=== PATIENT | female | born 1965 | race Caucasian/White ===

== ENCOUNTER 2017-12-04 01:05 | Emergency (ER) | payer OTHER ==
[~2017-12-04] VITALS: Ht 170.2 cm; Wt 113.2 kg
[~2017-12-04 01:05] MED LIST: ACET-1175 PO; ALBUAER2 INH; ASPI-320 PO; ATOR10TA82 PO; FLUT0.0529; GLC/500 PO; LPR25 PO; LSN25 PO; MULT-506 PO; NRN100 PO; NTRSLP4 SL; OMEP20CA59 PO; PLV75 PO; WARF-281 PO
[2017-12-04 01:10] VITALS: TEMP 36.4; Ht 170.2 cm; Wt 113.2 kg
[2017-12-04] MEDS ORDERED: DILTIAZEM HCL 5 MG/ML 5 ML VIAL ONE (01:22)
[2017-12-04] MEDS ORDERED: NURSING VERBAL MED ORDER ONE ×2 (01:24→01:30)
[2017-12-04 01:35] LABS: HEMATOCRIT 43.2 % (37-47); HEMOGLOBIN 14.8 g/dL (12.0-16.0); MEAN CELL VOLUME 83.9 fL (80-100); MEAN CORPUSCULAR HEMOGLOBIN 28.7 pg (25-34); MEAN CORPUSCULAR HGB CONC 34.3 g/dl (32-36); MEAN PLATELET VOLUME 10.3 fL (7.4-10.4); PLATELET COUNT 230 K/uL (130-400); RED CELL DISTRIBUTION WIDTH CV 13.1 % (11.5-14.5); RED CELL DISTRIBUTION WIDTH SD 39.5 fL (36.4-46.3); WHITE BLOOD COUNT 9.55 K/uL (4.8-10.8)
[2017-12-04 01:55] LABS: ALBUMIN 3.6 gm/dl (3.4-5.0); ALKALINE PHOSPHATASE 96 U/L (45-117); ALT/SGPT 48 U/L (12-78); AST/SGOT 22 U/L (15-37); BLOOD UREA NITROGEN 15 mg/dl (7-18); CALCIUM 8.1 mg/dl (8.5-10.1); CARBON DIOXIDE 27 mmol/L (21-32); CREATININE 0.82 mg/dl (0.60-1.20); GLUCOSE 276 mg/dl (70-99); POTASSIUM 3.5 mmol/L (3.5-5.1); SODIUM 138 mmol/L (136-145); TOTAL PROTEIN 6.8 gm/dl (6.4-8.2)
--- NOTE | 2017-12-04 02:20 | EMERGENCY ROOM VISIT NOTE ---
History Report prepared by Neno: Angella Andersen Under the Supervision of: Dr. Josi Harrell D.O. First contact with patient: 01:17 Chief Complaint: RAPID HEART RATE Stated Complaint: RAPID HEART RATE WILL NOT SLOW W/MEDS-HAS STINT History of Present Illness The patient is a 52 year old female who presents to the Emergency Room with complaints of a persistent episode of a rapid heart rate that started an hour ago. The patient rates her discomfort a 4/10 in severity. She states she was laying in bed when her symptoms started. The patient reports she has tried coughing and breathing exercises to slow her heart rate down with no relief. She also complains of headache, chest pressure, and tingling in her arms. She states she had a similar episode 2 months ago which resolved on its own. She denies any recent change in medications. She reports she has had a heart catheterization in the past. She has a stent in place. Source of History: patient Onset: an hour ago Position: other (heart) Symptom Intensity: 4/10 Quality: other (rapid heart rate) Timing: other (persistent) Associated Symptoms: + headache, + chest pain Note: Additional symptoms: arm tingling. Review of Systems See HPI for pertinent positives & negatives. A total of 10 systems reviewed and were otherwise negative. Past Medical & Surgical Medical Problems: (1) Diabetes Surgical Problems: (1) History of hysterectomy (2) S/P cholecystectomy Family History DVT Heart disease Social History Smoking Status: Former Smoker Marital Status: Occupation Status: employed Current/Historical Medications Scheduled Aspirin (Aspirin EC Low Dose), 81 MG PO QAM Atorvastatin (Lipitor), 20 MG PO DAILY Clopidogrel Bisulfate (Clopidogrel), 75 MG PO QAM Fluticasone Propionate (Nasal) (Flonase), 2 SPRAYS NA DAILY Gabapentin (Gabapentin), 200 MG PO TID Lisinopril (Lisinopril), 2.5 MG PO QAM Metformin Hcl (Glucophage), 500 MG PO BID Metoprolol Tartrate (Lopressor), 12.5 MG PO BID Multivitamin (Multivitamin), 1 TAB PO DAILY Nitroglycerin (Nitrostat), 0.4 MG UT PRN Omeprazole (Prilosec), 20 MG PO DAILY Warfarin Sodium (Warfarin Sodium), 20 MG PO DAILY Scheduled PRN Acetaminophen (Tylenol), 650 MG PO TID PRN for Pain or Fever Albuterol (Ventolin), 2 PUFFS INH QID PRN for SOB/Wheezing Nitroglycerin (Nitrostat), 0.4 MG SL UD PRN for Chest Pain Allergies Coded Allergies: Sulfa Drugs (Verified Allergy, Severe, ANAPHYLAXIS, 12/13/14) Adhesives (Verified Allergy, Unknown, RASH, 12/13/14) Physical Exam Vital Signs Date Time Temp Pulse Resp B/P (MAP) Pulse Ox O2 Delivery O2 Flow Rate FiO2 12/04/17 02:40 72 16 117/82 96 Room Air 12/04/17 01:57 71 18 106/69 98 Room Air 12/04/17 01:30 114 12/04/17 01:25 98 Room Air 12/04/17 01:19 152 12/04/17 01:10 36.4 168 19 141/92 95 Room Air Physical Exam HEENT: Head - normocephalic and atraumatic Pupils are equal, round, and reactive to light. Extraocular eye muscles are intact, and sclera are anicteric. Nose - moist nasal mucosa without discharge. Mouth - moist buccal mucosa. Oropharynx is nonerythematous and there is no tonsillar exudate or edema noted. Neck: Supple; no JVD, nuchal rigidity, cervical lymphadenopathy, or auscultated. Heart: Tachycardic. There is a normal S1 and S2 with no murmurs, clicks, or gallops appreciated. Lungs: Clear to auscultation bilaterally with no wheezes, rales, or rhonchi. Abdomen: Soft, completely nontender, nondistended, with good bowel sounds. There are no palpable pulsatile masses or hepatosplenomegaly. There is no guarding, rigidity, or rebound noted. Extremities: No evidence of cyanosis, clubbing, or edema. There are easily palpable peripheral pulses. Skin: warm and dry with good turgor and no rashes. Medical Decision & Procedures ER Provider Diagnostic Interpretation: Radiology results stated below per my interpretation: 1 VIEW CHEST X-RAY: Cardiomegaly, no evidence of congestive heart failure, no pulmonary infiltrates. Laboratory Results 12/04/17 01:18 Red Blood Count 5.15, Mean Corpuscular Volume 83.9, Mean Corpuscular Hemoglobin 28.7, Mean Corpuscular Hemoglobin Concent 34.3, Mean Platelet Volume 10.3, Neutrophils (%) (Auto) 40.4, Lymphocytes (%) (Auto) 51.0, Monocytes (%) (Auto) 4.5, Eosinophils (%) (Auto) 3.4, Basophils (%) (Auto) 0.3, Neutrophils # (Auto) 3.86, Lymphocytes # (Auto) 4.87, Monocytes # (Auto) 0.43, Eosinophils # (Auto) 0.32, Basophils # (Auto) 0.03 12/04/17 01:18 Test 12/04/17 01:18 White Blood Count 9.55 K/uL (4.8-10.8) Red Blood Count 5.15 M/uL (4.2-5.4) Hemoglobin 14.8 g/dL (12.0-16.0) Hematocrit 43.2 % (37-47) Mean Corpuscular Volume 83.9 fL (80-100) Mean Corpuscular Hemoglobin 28.7 pg (25-34) Mean Corpuscular Hemoglobin Concent 34.3 g/dl (32-36) Platelet Count 230 K/uL (130-400) Mean Platelet Volume 10.3 fL (7.4-10.4) Neutrophils (%) (Auto) 40.4 % Lymphocytes (%) (Auto) 51.0 % Monocytes (%) (Auto) 4.5 % Eosinophils (%) (Auto) 3.4 % Basophils (%) (Auto) 0.3 % Neutrophils # (Auto) 3.86 K/uL (1.4-6.5) Lymphocytes # (Auto) 4.87 K/uL (1.2-3.4) Monocytes # (Auto) 0.43 K/uL (0.11-0.59) Eosinophils # (Auto) 0.32 K/uL (0-0.5) Basophils # (Auto) 0.03 K/uL (0-0.2) RDW Standard Deviation 39.5 fL (36.4-46.3) RDW Coefficient of Variation 13.1 % (11.5-14.5) Immature Granulocyte % (Auto) 0.4 % Immature Granulocyte # (Auto) 0.04 K/uL (0.00-0.02) Smudge Cells PRESENT Prothrombin Time 22.4 SECONDS (9.0-12.0) Prothromb Time International Ratio 2.2 (0.9-1.1) Anion Gap 9.0 mmol/L (3-11) Est Creatinine Clear Calc Drug Dose 103.0 ml/min Estimated GFR () 94.7 Estimated GFR (Non- 81.7 BUN/Creatinine Ratio 18.8 (10-20) Calcium Level 8.1 mg/dl (8.5-10.1) Magnesium Level 1.4 mg/dl (1.8-2.4) Total Bilirubin 0.5 mg/dl (0.2-1) Direct Bilirubin 0.1 mg/dl (0-0.2) Aspartate Amino Transf (AST/SGOT) 22 U/L (15-37) Alanine Aminotransferase (ALT/SGPT) 48 U/L (12-78) Alkaline Phosphatase 96 U/L (45-117) Troponin I < 0.015 ng/ml (0-0.045) Pro-B-Type Natriuretic Peptide 103 pg/ml (0-900) Total Protein 6.8 gm/dl (6.4-8.2) Albumin 3.6 gm/dl (3.4-5.0) Thyroid Stimulating Hormone (TSH) 3.090 uIu/ml (0.300-4.500) Laboratory results per my review. Medications Administered Medications (Trade) Dose Ordered Sig/Shaila Route Start Time Stop Time Status Last Admin Dose Admin Miscellaneous Information (Nursing Verbal Med Order) 1 ea ONE ONCE N/A 12/04/17 01:24 12/04/17 01:50 DC 12/04/17 01:24 1 EA Miscellaneous Information (Nursing Verbal Med Order) 1 ea ONE ONCE N/A 12/04/17 01:30 12/04/17 01:50 DC 12/04/17 01:30 1 EA Magnesium Oxide (Mag-Ox Tab) 400 mg NOW STAT PO 12/04/17 02:32 12/04/17 02:36 DC 12/04/17 02:37 400 MG Procedure Cardizem 10 mg IV. Cardizem 5 mg IV. Magnesium Oxide 400 mg PO. ECG Per My Interpretation Indication: tachycardia Rate (beats per minute): 159 Rhythm: SVT Findings: no acute ischemic change, no ectopy Comparison ECG Date: April 2014 Change: no significant change (from her last event) ED Course The patient was evaluated in room A11B. A complete history and physical examination were performed. Nursing notes and previous electronic medical records were reviewed. IV lock was established and labs were drawn as above. A 12-lead EKG was obtained as described above. The patient was monitored on the pulse oximeter and site monitor. 0124: Ordered Cardizem 10 mg IV. 0130: Ordered repeat Cardizem 5 mg IV. 0130: The patient's second EKG shows sinus tachycardia with a rate of 115, second degree AV block type 1, no ischemia, no ectopy. 0133: The patient's third EKG shows normal sinus rhythm with a rate of 74, no ischemia, no ectopy, no ST segment changes. A portable chest x-ray was performed. 0232: Ordered Magnesium Oxide 400 mg PO. 0238: The patient asked if she could have a new prescription for nitroglycerin. I reviewed the appropriate conditions where she should use the nitroglycerin. 0245: Upon reevaluation, the patient is resting comfortably . I discussed findings and results with her. She verbalized agreement of the treatment plan. She was discharged home. Medical Decision The patient is a 52 year old female who presents to the Emergency Department with a rapid heart rate. Differential diagnosis includes A-fib with RVR, SVT, NSTEMI, acute coronary syndrome. Lab results show: Normal white count Normal H&H Glucose 276 Magnesium low at 1.4 Renal function normal LFT and TSH normal Troponin negative INR 2.2 This is a 52-year-old female patient presents to the emergency department with SVT. In reviewing her medical records, she had an episode of atrial fibrillation with rapid ventricular response and an STEMI. On initial evaluation, the patient was in SVT. She received 10 mg of IV Cardizem which slowed her enough for me to see that she was in a sinus tachycardia with a second-degree AV block. She received an additional 5 mg of IV Cardizem and this brought her rate down even more and converted her back to a normal sinus rhythm. Troponins were negative. The patient was noted to be hypomagnesemic. She was given a dose of oral magnesium and told to follow-up with her PCP to have the magnesium level rechecked along with her BSG and hemoglobin A1c. I did talk to the patient about the significantly elevated blood sugar and the need for close follow-up. Medication Reconcilliation Current Medication List: was personally reviewed by me Blood Pressure Screening Patient's blood pressure: Normal blood pressure Impression Primary Impression: SVT (supraventricular tachycardia) Additional Impressions: Hypomagnesemia Hyperglycemia Scribe Attestation The scribe's documentation has been prepared under my direction and personally reviewed by me in its entirety. I confirm that the note above accurately reflects all work, treatment, procedures, and medical decision making performed by me. Departure Information Dispostion Home / Self-Care Prescriptions Nitroglycerin (Nitrostat) 0.4 Mg Tab 0.4 MG UT PRN, #1 BTL Prov: Josi Harrell D.O. 12/04/17 Referrals Jose Quiñonez M.D. (PCP) Patient Instructions My [facility] Additional Instructions Rest You will need to follow up with your PCP for testing of magnesium, HgA1C, and your blood sugar. Return to the ER for further episodes of heart pounding or chest heaviness Follow up with Cardiology about this episode Take nitro as directed for chest heaviness. I would not take it if there is associated heart pounding Problem Qualifiers
[2017-12-04 02:21] LABS: BASO % 0.3 %; BASO ABS # 0.03 K/uL (0-0.2); EOS % 3.4 %; EOS ABS # 0.32 K/uL (0-0.5); IG# 0.04 K/uL (0.00-0.02); LYMPH ABS # 4.87 K/uL (1.2-3.4); MONO % 4.5 %; MONO ABS # 0.43 K/uL (0.11-0.59); NEUT % 40.4 %; NEUT ABS # 3.86 K/uL (1.4-6.5)
[2017-12-04] MEDS ORDERED: MAGNESIUM OXIDE 400 MG TAB PO STA (02:32)
[2017-12-04 02:40] VITALS: BP 117/82; PULSE 72; O2SAT 96
[2017-12-04] MEDS ORDERED: NTRGSL/4 UT (02:41)
[2017-12-04 03:35] LABS: INR 2.2 (0.9-1.1)
--- NOTE | 2017-12-04 06:46 | DIAGNOSTIC IMAGING REPORT ---
CHEST ONE VIEW PORTABLE HISTORY: 52 years-old Female afib with rvr acute atrial fibrillation with acute atypical chest pain COMPARISON: Chest radiograph 05/04/2014 TECHNIQUE: Portable AP view of the chest FINDINGS: Cardiac silhouette is mildly enlarged. No pneumothorax, pleural effusion, focal airspace consolidation or overt pulmonary edema. Bones of the chest appear grossly intact. IMPRESSION: Cardiomegaly without acute process. The above report was generated using voice recognition software. It may contain grammatical, syntax or spelling errors. Electronically signed by: Santana Li M.D. 12/04/2017 6:45 AM Dictated Date/Time: 12/04/2017 6:44 AM
== END 2017-12-04 02:50 | disposition home or self-care (01) ==
LOC: C.EDB 01:06 → C.EDA 02:50
DX: I47.1 Supraventricular tachycardia (principal); E83.42 Hypomagnesemia; R73.9 Hyperglycemia, unspecified; E11.9 Type 2 diabetes mellitus without complications; Z87.891 Personal history of nicotine dependence; Z79.01 Long term (current) use of anticoagulants; Z51.81 Encounter for therapeutic drug level monitoring; Z88.2 Allergy status to sulfonamides

== ENCOUNTER 2018-07-09 00:08 | Inpatient (IN) ==
[2018-07-09] MEDS ORDERED: ADENOSINE IV SOLN 3 MG/ML 2 ML VIAL IV ONE (00:37)
[2018-07-09] MEDS ORDERED: ADENOSINE IV SOLN 3 MG/ML 2 ML VIAL IV STA (00:42)
[2018-07-09] MEDS ORDERED: SODIUM CHLORIDE 0.9% 500 ML IV SCH (00:45)
[2018-07-09 00:55] LABS: Basophils # (auto) 0.04 K/uL (0-0.2); Basophils % (auto) 0.5 %; Eosinophils % (auto) 3.4 %; Hematocrit (blood only) 41.9 % (37-47); Hemoglobin 14.5 g/dL (12.0-16.0); Immature Granulocytes # (auto) 0.02 K/uL (0.00-0.02); Immature Granulocytes % (auto) 0.2 %; Lymphocytes # (auto) 4.34 K/uL (1.2-3.4); Lymphocytes % (auto) 49.8 %; Mean Corpuscular Hgb Conc 34.6 g/dL (32-36); Mean Corpuscular Volume 84.6 fL (80-100); Mean Platelet Volume 10.1 fL (7.4-10.4); Monocytes % (auto) 6.9 %; Neutrophils # (auto) 3.41 K/uL (1.4-6.5); Neutrophils % (auto) 39.2 %; Platelet Count 195 K/uL (130-400); RDW Coefficient of Variation 13.4 % (11.5-14.5); RDW Standard Deviation 40.7 fL (36.4-46.3); Red Blood Count 4.95 M/uL (4.2-5.4); White Blood Count 8.71 K/uL (4.8-10.8)
[2018-07-09 01:15] LABS: INR 2.6 (0.9-1.1); Partial Thromboplastin Ratio 1.4; Partial Thromboplastin Time 36.7 Seconds (21.0-31.0); Prothrombin Time 24.5 Seconds (9.0-12.0)
[2018-07-09 01:18] LABS: Albumin Level 3.6 gm/dl (3.4-5.0); BUN Creatinine Ratio 26.3 (10-20); Calcium 8.8 mg/dl (8.5-10.1); Creatinine Clr Calc Pharmacy 116.9 ml/min; Est GFR (African American) 114.6; Est GFR (Non-African American) 98.9; Potassium 3.7 mmol/L (3.5-5.1)
[2018-07-09 01:28] LABS: Albumin Globulin Ratio 1.1 (0.9-2); Bilirubin,Total 0.4 mg/dl (0.2-1); Globulin 3.3 gm/dl (2.5-4.0); Total Protein 6.9 gm/dl (6.4-8.2)
--- NOTE | 2018-07-09 01:53 | Emergency Department Note ---
Entered by Bari Hodges acting as a scribe for History of Present Illness General Chief complaint: Arrhythmia/Palpitations Stated complaint: AFIB, PALPITATIONS Source: patient History of Present Illness Onset (ago): hour(s) 1 Location: chest Pain Consistency: + constant Maximum Pain Intensity: 5 Quality: + other (palpitations) Associated symptoms: + other (Positive for SOB, chest pressure, back pain, and arm pain. Negative for chest pain, fever, vomiting, diarrhea, and leg swelling/pain.) The patient is a 52 year old female who presents to the emergency department with complaints of constant palpitations beginning an hour ago. The patient states that it feels as though her heart has been irregular and fast for the last hour. She notes that she is also having some SOB and chest/back pain that radiates into her arms. She reports that her chest discomfort feels like heaviness and pressure that lasted for 45 minutes. She denies any fever, vomitin g, diarrhea, and leg swelling/pain. She reports that she has a history of Afib, SVT, and diabetes. The patient states that she has a cardiac stent placed. She notes that she is on Coumadin for paroxysmal A. fib. She reports that she has not smoked cigarettes in 9 years. Home Medications Home Medications Medication Instructions Recorded Confirmed Type Multivitamin 1 tab PO DAILY #0 05/14/13 07/09/18 History OMEPRAZOLE (Prilosec) 20 mg PO DAILY #0 05/14/13 07/09/18 History Nitroglycerin (Nitrostat) 0.4 mg UT PRN #1 btl 12/04/17 07/09/18 Rx METOPROLOL TARTRATE (LOPRESSOR) See Rx Instructions .ROUTE .COMPLEX 07/09/18 07/09/18 History acetaminophen [Tylenol] 650 mg PO TID PRN 07/09/18 07/09/18 History albuterol sulfate [Ventolin HFA] 2 puff INHALATION Q6H PRN 07/09/18 07/09/18 History aspirin [Ecotrin Low Strength] 81 mg PO DAILY 07/09/18 07/09/18 History atorvastatin 40 mg PO DAILY 07/09/18 07/09/18 History empagliflozin [Jardiance] 25 mg PO DAILY 07/09/18 07/09/18 History glimepiride 2 mg PO QAM 07/09/18 07/09/18 History metformin 850 mg PO BID 07/09/18 07/09/18 History tramadol 50 mg PO Q6H PRN 07/09/18 07/09/18 History warfarin 10 mg PO DAILY 07/09/18 07/09/18 History Allergies Allergy/AdvReac Type Severity Reaction Status Date / Time Sulfa (Sulfonamide Allergy Severe ANAPHYLAXIS Verified 12/13/14 15:21 Antibiotics) adhesive Allergy Unknown RASH Verified 12/13/14 16:09 Past Med/Surg History Medical History Diabetes (Chronic) ACS (acute coronary syndrome) (Acute 05/05/14) Acute pain of left shoulder (Acute) Atrial fibrillation with rapid ventricular response (Acute) Calcific tendinitis (Acute) Elevated troponin (Acute) Hyperglycemia (Acute) Hypomagnesemia (Acute) Paroxysmal a-fib (Acute 05/04/14) SVT (supraventricular tachycardia) (Acute) Surgical History History of hysterectomy (Resolved) S/P cholecystectomy (Resolved) Social History Feels Safe at Home: Yes Smoking Status: Former smoker Review of Systems See HPI for pertinent positives & negatives. and A total of 10 systems reviewed and were otherwise negative Physical Exam Vital Signs Vital Signs - 24 hr 07/09/18 00:12 07/09/18 00:24 07/09/18 00:26 Temperature 36.9 C Temperature Source Oral Sepsis Action Taken by Nursing No Action Required Pulse Rate 153 H 153 H 156 H Pulse Rate [Bilateral Apical] Respiratory Rate 20 19 20 Blood Pressure 113/79 114/98 Blood Pressure [Left Arm] Blood Pressure Mean 90 103 Blood Pressure Mean [Left Arm] Pulse Oximetry 99 Oxygen Delivery Method Room Air 07/09/18 00:30 07/09/18 00:46 07/09/18 00:57 Temperature Temperature Source Sepsis Action Taken by Nursing Pulse Rate 163 H 78 Pulse Rate [Bilateral Apical] 76 Respiratory Rate 14 14 18 Blood Pressure 112/74 Blood Pressure [Left Arm] 108/77 Blood Pressure Mean 86 Blood Pressure Mean [Left Arm] 87 Pulse Oximetry 98 Oxygen Delivery Method Room Air 07/09/18 01:30 07/09/18 01:48 Temperature Temperature Source Sepsis Action Taken by Nursing Pulse Rate Pulse Rate [Bilateral Apical] 78 72 Respiratory Rate 18 18 Blood Pressure Blood Pressure [Left Arm] 89/62 L 123/73 Blood Pressure Mean Blood Pressure Mean [Left Arm] 71 89 Pulse Oximetry 96 97 Oxygen Delivery Method Room Air Room Air Constitutional: Vital signs reviewed. Eyes: Pupils are equal round reactive to light. Conjunctiva are noninjected. ENT: Pharynx is clear without erythema or exudate. Mucous membranes are moist. Neck supple without meningeal signs. Respiratory: Clear to auscultation bilaterally. Breath sounds are equal bi laterally. Cardiovascular: Heart rate in the 150s, regular rhythm. Symmetric pulses. GI: Soft, nondistended and nontender. Bowel sounds are present. Musculoskeletal: No peripheral edema. No lower extremity tenderness. Integumentary: No cyanosis. Neurological: The patient is awake and alert. No focal deficits. Psychiatric: Normal affect. Course 0018: The patient was evaluated in room C12, and a complete history and physical examination were performed. I performed a modified Valsalva. Her heart rate went down to the 80s and her rhythm showed P waves. She then went back to SVT in the 160s. We pushed 6 of adenosine and her heart rate is now normal sinus in the 70s. She has no chest pain. 0049: I reevaluated and updated the patient. She had a stent placed in the RCA three years ago. 0122: I rechecked the patient. She does not have any CP. I recommended hospitalization. 0131: Upon reevaluation, the patient is stable. I discussed the results and treatment plan with the patient. She verbalizes understanding and agreement. I discussed the patient's case with Mirtha Lnua. The patient will be evaluated for further management and care. Consultations Consultation #1: I reviewed the patient's case with Mirtha Luna. He will evaluate the patient for further management. Time: 01:31 Administered Medications Discontinued Medications Adenosine (Adenosine) Confirm Administered Dose 12 mg IV .[employer] Stop: 07/09/18 00:38 Last Admin: 07/09/18 00:51 Dose: Not Given Documented by: [id number] Adenosine (Adenosine) 6 mg IV NOW STA Stop: 07/09/18 00:43 Last Admin: 07/09/18 00:51 Dose: 6 mg Documented by: [id number] Sodium Chloride (Nss) 500 mls @ 999 mls/hr IV .Q31M MARIELOS Stop: 07/09/18 01:15 Last Admin: 07/09/18 00:51 Dose: 999 mls/hr Documented by: [id number] Medical Decision Making Differential Diagnosis Differential diagnoses include: SVT, Afib with RVR, electrolyte abnormalities, unstable angina, CT, and metabolic derangement. Medical Records Attestation: I reviewed the patient's medical records. The patient was seen in November 2017 for a rapid heart rate. She was diagnosed with SVT at that time. Home Medications Current Medication List: was personally reviewed by me Laboratory Data Attestation: I reviewed the patient's lab results. Result diagrams: 07/09/18 00:34 07/09/18 00:34 Lab Results 07/09/18 07/09/18 07/09/18 Range/Units 00:34 00:34 00:34 WBC 8.71 (4.8-10.8) K/uL RBC 4.95 (4.2-5.4) M/uL Hgb 14.5 (12.0-16.0) g/dL Hct 41.9 (37-47) % MCV 84.6 (80-100) fL MCH 29.3 (25-34) pg MCHC 34.6 (32-36) g/dL RDW Std Deviation 40.7 (36.4-46.3) fL RDW Coeff of Felicitas 13.4 (11.5-14.5) % Plt Count 195 (130-400) K/uL MPV 10.1 (7.4-10.4) fL Immature Gran % (Auto) 0.2 % Neut % (Auto) 39.2 % Lymph % (Auto) 49.8 % [place] % (Auto) 6.9 % Eos % (Auto) 3.4 % Baso % (Auto) 0.5 % Immature Gran # (Auto) 0.02 (0.00-0.02) K/uL Neut # (Auto) 3.41 (1.4-6.5) K/uL Lymph # (Auto) 4.34 H (1.2-3.4) K/uL [place] # (Auto) 0.60 H (0.11-0.59) K/uL Eos # (Auto) 0.30 (0-0.5) K/uL Baso # (Auto) 0.04 (0-0.2) K/uL PT 24.5 H (9.0-12.0) Seconds INR 2.6 H (0.9-1.1) APTT 36.7 H (21.0-31.0) Seconds PTT Ratio 1.4 Sodium 145 (136-145) mmol/L Potassium 3.7 (3.5-5.1) mmol/L Chloride 109 H (98-107) mmol/L Carbon Dioxide 28 (21-32) mmol/L Anion Gap 8.0 (3-11) BUN 19 H (7-18) mg/dl Creatinine 0.70 (0.6-1.2) mg/dl Est Cr Clr Drug Dosing 116.9 ml/min Est GFR ( Amer) 114.6 Est GFR (Non-Af Amer) 98.9 BUN/Creatinine Ratio 26.3 H (10-20) Glucose 115 H (70-99) mg/dl Calcium 8.8 (8.5-10.1) mg/dl Total Bilirubin 0.4 (0.2-1) mg/dl AST 18 (15-37) U/L ALT 36 (12-78) U/L Alkaline Phosphatase 83 (45-117) U/L POC Troponin I (0-0.045) ng/ml Total Protein 6.9 (6.4-8.2) gm/dl Albumin 3.6 (3.4-5.0) gm/dl Globulin 3.3 (2.5-4.0) gm/dl Albumin/Globulin Ratio 1.1 (0.9-2) TSH 2.630 (0.300-4.500) uIu/ml 07/09/18 Range/Units 00:55 WBC (4.8-10.8) K/uL RBC (4.2-5.4) M/uL Hgb (12.0-16.0) g/dL Hct (37-47) % MCV (80-100) fL MCH (25-34) pg MCHC (32-36) g/dL RDW Std Deviation (36.4-46.3) fL RDW Coeff of Felicitas (11.5-14.5) % Plt Count (130-400) K/uL MPV (7.4-10.4) fL Immature Gran % (Auto) % Neut % (Auto) % Lymph % (Auto) % [place] % (Auto) % Eos % (Auto) % Baso % (Auto) % Immature Gran # (Auto) (0.00-0.02) K/uL Neut # (Auto) (1.4-6.5) K/uL Lymph # (Auto) (1.2-3.4) K/uL [place] # (Auto) (0.11-0.59) K/uL Eos # (Auto) (0-0.5) K/uL Baso # (Auto) (0-0.2) K/uL PT (9.0-12.0) Seconds INR (0.9-1.1) APTT (21.0-31.0) Seconds PTT Ratio Sodium (136-145) mmol/L Potassium (3.5-5.1) mmol/L Chloride (98-107) mmol/L Carbon Dioxide (21-32) mmol/L Anion Gap (3-11) BUN (7-18) mg/dl Creatinine (0.6-1.2) mg/dl Est Cr Clr Drug Dosing ml/min Est GFR ( Amer) Est GFR (Non-Af Amer) BUN/Creatinine Ratio (10-20) Glucose (70-99) mg/dl Calcium (8.5-10.1) mg/dl Total Bilirubin (0.2-1) mg/dl AST (15-37) U/L ALT (12-78) U/L Alkaline Phosphatase (45-117) U/L POC Troponin I < 0.03 (0-0.045) ng/ml Total Protein (6.4-8.2) gm/dl Albumin (3.4-5.0) gm/dl Globulin (2.5-4.0) gm/dl Albumin/Globulin Ratio (0.9-2) TSH (0.300-4.500) uIu/ml Imaging Data Attestation: I personally reviewed and interpreted this imaging study as follows: My Impression: CHEST X-RAY: No acute cardiopulmonary process. No consolidation or infiltrate. ECG Data Attestation: I personally reviewed and interpreted this ECG as follows: Indication: palpitations Rate (beats per minute): 154 Rhythm: SVT Findings: + Q waves (inferiorly) Additional Comments: QRS is 88ms. EKG #2: Normal sinus, 76, no ST elevation, no PVCs, Q wave in lead 3 and V1. Blood Pressure Blood Pressure Findings: Normal blood pressure Blood Pressure Disposition: did not require urgent referral MDM Narrative I did evaluate the patient as noted above. Patient is presenting with palpitations and tachycardia. She also had chest pressure and heaviness which now seems to be resolved while lying in bed. IV access was established. The patient was placed on a continuous catalog librarian. I did order and personally review the patient's 12-lead EKG and chest x-ray as described above. Her twelve-lead EKG demonstrates SVT with a rate of 150. I did attempt carotid massage and bearing down. This did not help. I did perform a modified Valsalva maneuver where the patient was blowing consistently into a syringe for 10 seconds and then we quickly lowered her on the bed supine while raising her legs. Her heart rate did come down to the 80s and she was in sinus rhythm but then quickly went back into SVT with a heart rate in the 160s. I therefore treated her with adenosine 6 mg quick IV push. Her heart rate came down to the 70s and she felt much better. Repeat twelve-lead EKG was obtained which showed no acute ischemic changes. I did order and review the patient's blood work as noted in the electronic medical record. Troponin is negative. Electrolytes are unremarkable. I did discuss the test results with the patient. She is asymptomatic at this time. Given her prior history of stent placement and chest pressure and tightness with tachycardia I did recommend hospitalization for repeat cardiac enzymes and cardiology evaluation. I did discuss case with the hospitalist and employment evaluator/case manager. Impression & Plan Acute chest pain, SVT (supraventricular tachycardia), Anticoagulated on Co umadin Critical Care Time I have personally spent 35 minutes of critical care time in the direct management of this patient. This includes bedside care, interpretation of diagnostic studies, and testing, discussion with consultants, patient, and family members, and other required patient management activities. This 35 minutes is in excess of all separately billable procedures. Critical Care Time: Yes Total Critical Care Time: 35 Discharge Plan Visit Data Chief Complaint: Arrhythmia/Palpitations Stated Complaint: AFIB, PALPITATIONS ED Provider: Thomas Cruz Discharge Problem: Acute chest pain, SVT (supraventricular tachycardia), Anticoagulated on Coumadin Patient Disposition: Being Evaluated by Hospitalist Forms Stand Alone Forms: My [facility] Prescriptions Prescriptions: No Action ACETAMINOPHEN (TYLENOL) 325 MG tablet 650 mg PO TID PRN (Reason: Pain or Fever) Qty: 0 RF: 0 Albuterol (Ventolin) inhaler 2 puff Inhalation QID PRN (Reason: SOB/Wheezing) Qty: 0 RF: 0 FLUTICASONE PROPIONATE (NASAL) (FLONASE) 50 MCG/ACT SPR 2 spry NA DAILY Qty: 0 RF: 0 Multivitamin tablet 1 tab PO DAILY Qty: 0 RF: 0 OMEPRAZOLE (Prilosec) 20 MG CONTR REL CAP 20 mg PO DAILY Qty: 0 RF: 0 Aspirin (Aspirin EC Low Dose) 81 MG ENTERIC COATED TAB 81 mg PO QAM 31 Days Qty: 0 RF: 0 Lisinopril 2.5 MG tablet 2.5 mg PO QAM 30 Days Qty: 0 RF: 0 Nitroglycerin (Nitrostat) 0.4 MG tablet 0.4 mg UT PRN Qty: 1 RF: 0 atorvastatin 40 mg Tablet 40 mg PO DAILY RF: 0 metformin 850 mg Tablet 850 mg PO BID RF: 0 tramadol 50 mg Tablet 50 mg PO Q6H PRN (Reason: Pain) RF: 0 glimepiride 2 mg Tablet 2 mg PO QAM RF: 0 warfarin 5 mg Tablet 10 mg PO DAILY RF: 0 Jardiance 25 mg Tablet 25 mg PO DAILY RF: 0 METOPROLOL TARTRATE (LOPRESSOR) 25 MG tablet See Rx Instructions .ROUTE .COMPLEX RF: 0 acetaminophen [Tylenol] 325 mg Tablet 650 mg PO TID PRN (Reason: Pain) RF: 0 aspirin [Ecotrin Low Strength] 81 mg Tablet,Delayed Release (Dr/Ec) 81 mg PO DAILY RF: 0 albuterol sulfate [Ventolin HFA] 90 mcg/actuation Hfa Aerosol Inhaler 2 puff INHALATION Q6H PRN (Reason: Wheezing) RF: 0 Referrals Referrals: Jose Quiñonez [Primary Care Provider] - The scribe's documentation has been prepared under my direction and personally reviewed by me in its entirety. I confirm that the note above accurately reflects all work, treatment, procedures, and medical decision making performed by me.
--- NOTE | 2018-07-09 02:21 | History & Physical Report ---
Date of Service July 09, 2018 Assessment & Plan (1) SVT (supraventricular tachycardia): Recurrent SVT tonight associated with chest pain. Converted to sinus rhythm after receiving IV adenosine. Serum potassium normal. Check magnesium with next labs. Continue metoprolol. Consult Cardiology. (2) Coronary artery disease: Chest pain tonight associated with SVT. Known ischemic heart disease, status post non-STEMI with PCI/stenting RCA in 2014. Continue aspirin, metoprolol, statin. Consult Cardiology. Keep NPO pending Cardiology recommendations. (3) Paroxysmal a-fib: Continue metoprolol and warfarin. (4) GERD (gastroesophageal reflux disease): Continue PPI. (5) Diabetes mellitus type 2 with complications: Usually well controlled on oral agents. Random glucose 115. Check hemoglobin A1c. Hold metformin and glimepiride during hospital stay. Lantus/NovoLog per protocol. (6) DVT prophylaxis: Anticoagulated on warfarin. (7) Discharge planning issues: Anticipated discharge to home. Family Medicine follow-up with Dr. Quiñonez. Cardiology follow-up with Dr. Jackson. History of Present Illness Chief Complaint: chest pain, palpitations Primary Care Provider: Jose Quiñonez 52-year-old female followed by Dr. Quiñonez for Family Medicine and Dr. Jackson for Cardiology. History of ischemic heart disease with non-STEMI in 2014, status post PCI with stenting of RCA. History of atrial fibrillation and SVT. Resting in bed this evening around 2230 and noted onset of palpitations associated with midsternal chest pressure. The chest pressure was fairly severe and radiated to her back and neck. She felt somewhat short of breath. No diaphoresis, nausea, vomiting. She tried Valsalva maneuver without improvement of symptoms. Brought to ED. Valsalva maneuver again unsuccessful. Received IV adenosine and converted to normal sinus rhythm. Chest pain gradually subsided after adenosine was administered. Pain-free at time of my assessment. Allergies Allergy/AdvReac Type Severity Reaction Status Date / Time Sulfa (Sulfonamide Allergy Severe ANAPHYLAXIS Verified 12/13/14 15:21 Antibiotics) adhesive Allergy Unknown RASH Verified 12/13/14 16:09 Home Medications Home Medications Medication Instructions Recorded Confirmed Type acetaminophen [Tylenol] 650 mg PO TID PRN 07/09/18 07/09/18 History albuterol sulfate [Ventolin HFA] 2 puff INHALATION Q6H PRN 07/09/18 07/09/18 History aspirin [Ecotrin Low Strength] 81 mg PO DAILY 07/09/18 07/09/18 History atorvastatin 40 mg PO DAILY 07/09/18 07/09/18 History cetirizine [Zyrtec] 10 mg PO DAILY 07/09/18 07/09/18 History empagliflozin [Jardiance] 25 mg PO DAILY 07/09/18 07/09/18 History fluticasone propionate [Flonase 2 spray INTRANASAL DAILY 07/09/18 07/09/18 History Allergy Relief] glimepiride 2 mg PO QAM 07/09/18 07/09/18 History lisinopril 2.5 mg PO DAILY 07/09/18 07/09/18 History metformin 850 mg PO BID 07/09/18 07/09/18 History metoprolol tartrate See Rx Instructions .ROUTE .COMPLEX 07/09/18 07/09/18 History multivitamin 1 tab PO DAILY 07/09/18 07/09/18 History nitroglycerin [Nitrostat] 0.4 mg SUBLINGUAL Q5M PRN 07/09/18 07/09/18 History omeprazole 20 mg PO DAILY 07/09/18 07/09/18 History tramadol 50 mg PO Q6H PRN 07/09/18 07/09/18 History warfarin 10 mg PO DAILY 07/09/18 07/09/18 History Past Med/Surg History Medical History GERD (gastroesophageal reflux disease) (Chronic) Diabetes mellitus type 2 with complications (Chronic) Coronary artery disease (Chronic) Paroxysmal a-fib (Chronic 05/04/14) SVT (supraventricular tachycardia) (Chronic) Surgical History Status post coronary artery stent placement (Chronic) History of hysterectomy (Chronic) S/P cholecystectomy (Chronic) Family History Mother Systemic lupus erythematosus Cervical cancer Stroke Tuberculosis Rheumatoid arthritis Father Hypertension Heart disease Diabetes Leukemia Grandmother (Maternal) Tuberculosis Social History Preferred Language: Luxembourgish Communication Ability: Effective Veneer Clipper Helper Required: No Beliefs That Will Affect Care: None Current Living Situation: Family and Other Current Living Situation Comment: lives with her son and nephew Other Information That Helps Us Care for You: No Feels Safe at Home: Yes Safety Concerns: Feels Safe At This Time Smoking Status: Former smoker Hx Alcohol Use: Yes Review of Systems Constitutional: no fever and no weight loss Eyes: no diplopia and no worsening vision Ear, Nose, Mouth, Throat: + nasal congestion; no sore throat Respiratory: + cough (mild); no dyspnea Cardiovascular: as per Subjective / HPI Gastrointestinal: no nausea, no vomiting, no constipation, no diarrhea/loose stools, no blood in stools and no melena Genitourinary (Female): no dysuria and no hematuria Musculoskeletal: + joint pain (back, knees); no myalgia Integumentary: no rash and no new lesions Neurologic: + headache(s) (occasional) Endocrine: no polydipsia and no polyuria Hematologic / Lymphatic: + easy bruising; no easy bleeding and no lymphadenopathy Physical Exam Vital Signs (Past 24 Hours): Last Vital Signs Temp 36.9 C 07/09/18 00:12 Pulse 79 07/09/18 02:18 Resp 18 07/09/18 02:18 BP 143/82 H 07/09/18 02:18 Pulse Ox 97 07/09/18 02:18 Constitutional: WD/WN, vitals as above no acute distress Eyes: PERRL, conjunctivae normal, anicteric sclerae ENMT: external ear and nose normal, oropharynx normal Neck: trachea midline, no thyromegaly Respiratory: normal respiratory effort, lungs clear to auscultation Cardiovascular: Rate/Rhythm: regular rate Heart Sounds: + murmur (I/ sys murmur LSB); no gallop and no cardiac rub Vessels: normal peripheral pulses; no JVD Extremities: normal capillary refill; no calf tenderness and no edema Gastrointestinal (Abdomen): normal bowel sounds, soft, nontender, no hepatosplenomegaly Musculoskeletal: Head/Neck/Chest: neck supple Extremities: strength 5/5 throughout; no cyanosis and no clubbing Skin: no rashes, warm and dry Neurologic: PERRL, EOMI no facial palsy no dysarthria or aphasia patellar DTR's 2/2 bilat Psychiatric: Orientation: alert and oriented x 3 Affect: euthymic affect Lymphatic: no cervical lymphadenopathy Results & Data Laboratory Results Laboratory Results - last 24 hr 07/09/18 07/09/18 07/09/18 00:34 00:34 00:34 WBC 8.71 RBC 4.95 Hgb 14.5 Hct 41.9 MCV 84.6 MCH 29.3 MCHC 34.6 RDW Std Deviation 40.7 RDW Coeff of Felicitas 13.4 Plt Count 195 MPV 10.1 Immature Gran % (Auto) 0.2 Neut % (Auto) 39.2 Lymph % (Auto) 49.8 [place] % (Auto) 6.9 Eos % (Auto) 3.4 Baso % (Auto) 0.5 Immature Gran # (Auto) 0.02 Neut # (Auto) 3.41 Lymph # (Auto) 4.34 H [place] # (Auto) 0.60 H Eos # (Auto) 0.30 Baso # (Auto) 0.04 PT 24.5 H INR 2.6 H APTT 36.7 H PTT Ratio 1.4 Sodium 145 Potassium 3.7 Chloride 109 H Carbon Dioxide 28 Anion Gap 8.0 BUN 19 H Creatinine 0.70 Est Cr Clr Drug Dosing 116.9 Est GFR ( Amer) 114.6 Est GFR (Non-Af Amer) 98.9 BUN/Creatinine Ratio 26.3 H Glucose 115 H POC Glucose Calcium 8.8 Total Bilirubin 0.4 AST 18 ALT 36 Alkaline Phosphatase 83 POC Troponin I Total Protein 6.9 Albumin 3.6 Globulin 3.3 Albumin/Globulin Ratio 1.1 TSH 2.630 07/09/18 07/09/18 00:55 03:06 WBC RBC Hgb Hct MCV MCH MCHC RDW Std Deviation RDW Coeff of Felicitas Plt Count MPV Immature Gran % (Auto) Neut % (Auto) Lymph % (Auto) [place] % (Auto) Eos % (Auto) Baso % (Auto) Immature Gran # (Auto) Neut # (Auto) Lymph # (Auto) [place] # (Auto) Eos # (Auto) Baso # (Auto) PT INR APTT PTT Ratio Sodium Potassium Chloride Carbon Dioxide Anion Gap BUN Creatinine Est Cr Clr Drug Dosing Est GFR ( Amer) Est GFR (Non-Af Amer) BUN/Creatinine Ratio Glucose POC Glucose 114 H Calcium Total Bilirubin AST ALT Alkaline Phosphatase POC Troponin I < 0.03 Total Protein Albumin Globulin Albumin/Globulin Ratio TSH Diagnostic Findings PORTABLE CHEST X-RAY Borderline cardiomegaly. No infiltrates, effusions, CHF. (preliminary interpretation) ECG Additional Comments: EKG performed at 0018 reviewed and demonstrated narrow complex tachycardia at 150 / min, possible age-indeterminate inferior infarct, poor R-wave progression, NSSTTWA's. EKG performed at 0043 reviewed and demonstrated NSR at 76/min, poor R-wave progression, resolution of ST depression in lateral leads. Code Status & VTE Plan Code Status full code VTE Prophylaxis Plan VTE Prophylaxis will be ordered: Yes
[2018-07-09] MEDS ORDERED: ALBUTEROL HFA 8 GM INHALER INH PRN (02:54)
[2018-07-09] MEDS ORDERED: ACETAMINOPHEN 325 MG TAB PO PRN ×2 (02:54→04:12)
[2018-07-09] MEDS ORDERED: TRAMADOL HCL 50 MG TABLET PO PRN (02:54)
[2018-07-09] MEDS ORDERED: GLUCOSE 10 TABS/TUBE PO PRN (03:15)
[2018-07-09] MEDS ORDERED: GLUCOSE 40% GEL 15 GM TUBE PO PRN (03:15)
[2018-07-09] MEDS ORDERED: DEXTROSE 50% 50 ML SYRINGE IV PRN (03:15)
[2018-07-09] MEDS ORDERED: CARBOHYDRATES FOR HYPOGLYCEMIA PO PRN (03:15)
[2018-07-09] MEDS ORDERED: GLUCAGON FOR INJ 1 MG VIAL IM PRN (03:15)
[2018-07-09] MEDS ORDERED: NITROGLYCERIN SL 0.4 MG/TAB TAB SL PRN (04:12)
[2018-07-09 06:43] LABS: Estimated Average Glucose 143 mg/dl; Hemoglobin A1C 6.6 % (4.5-5.6)
--- NOTE | 2018-07-09 07:01 | XRay Report ---
XR chest 1V portable CLINICAL HISTORY: Chest Pain COMPARISON STUDY: Chest radiograph November 26, 2017. FINDINGS: Lung volumes are normal. There is no pneumothorax or pleural effusion. There is no consolid ation or evidence for pulmonary edema. Cardiomegaly is unchanged. Appearance of the chest is unchange d. IMPRESSION: Stable cardiomegaly. No acute cardiopulmonary findings. Electronically signed by: Raymond Rubio M.D. 07/09/2018 7:00 AM
[2018-07-09 07:15] LABS: BUN Creatinine Ratio 30.4 (10-20); Blood Urea Nitrogen 16 mg/dl (7-18); Calcium 8.4 mg/dl (8.5-10.1); Carbon Dioxide 25 mmol/L (21-32); Chloride 112 mmol/L (98-107); Chol HDL Ratio 5; Cholesterol 117 mg/dl (0-200); Creatinine Clr Calc Pharmacy 153.4 ml/min; Est GFR (African American) 124.9; Est GFR (Non-African American) 107.7; Glucose 113 mg/dl (70-99); HDL Cholesterol 25 mg/dl; LDL Cholesterol Calculated 29 mg/dl; Magnesium 1.9 mg/dl (1.8-2.4); Potassium 3.9 mmol/L (3.5-5.1); Sodium 144 mmol/L (136-145); Triglycerides 315 mg/dl (0-150); Troponin I < 0.015 ng/ml (0-0.045); VLDL Cholesterol 63 mg/dl
[2018-07-09] MEDS: FLUTICASONE PROPIONATE NA SPR 16 GM BTL NAE SCH (07:33)
[2018-07-09] MEDS: D5W AND LACTATED RINGERS 1,000 ML IV SCH ×2 (07:33→15:23)
[2018-07-09] MEDS: LISINOPRIL 2.5 MG TAB PO SCH (07:34)
[2018-07-09] MEDS: ATORVASTATIN 40 MG TAB PO SCH (07:34)
[2018-07-09] MEDS: CETIRIZINE HCL 10 MG TABLET PO SCH ×3 (07:34→21:30)
[2018-07-09] MEDS: PANTOprazole 40 MG TAB PO SCH (07:35)
[2018-07-09] MEDS: ASPIRIN 81 MG ECTAB PO SCH (07:35)
[2018-07-09] MEDS: INSULIN ASPART 100 UNITS/ML 3 ML PEN SC SCH ×4 (08:29→21:34)
[2018-07-09] MEDS ORDERED: Nursing to Pharmacy Communication ONE ×2 (08:32→23:37)
[2018-07-09] MEDS ORDERED: METOPROLOL TARTRATE 50 MG TAB PO SCH (09:00)
--- NOTE | 2018-07-09 09:09 | Cardiology Consultation ---
Date of Consultation July 09, 2018 Assessment & Plan (1) SVT (supraventricular tachycardia): Potential treatment options for supraventricular tachycardia discussed with patient at length. Antiarrhythmic versus ablation reviewed. Patient agreeable to electrophysiology consultation to consider ablation. Metoprolol be titrated to 50 mg twice daily today. (2) Acute chest pain: Pain-free at this time. Cardiac enzymes will be trended x3 sets. (3) Coronary artery disease: (4) Status post coronary artery stent placement: (5) Paroxysmal a-fib: No recurrence. INR therapeutic. Anticoagulation will be placed on hold pending electrophysiology consultation. History of Present Illness Reason for Consultation: SVT, chest pain, CAD with prior RCA stenting Requesting Physician: Dr. Goff Attending Physician: Alin Matthews MD History of Present Illness 52-year-old female developed palpitations and chest discomfort last evening approximately 1030. Discomfort described as a pressure eventually radiating to her neck and bilateral arms. Patient proceeded to the emergency department via her personal vehicle. Noted to be SVT with heart rates ranging from 150-160 bpm. Valsalva maneuver was attempted which briefly slowed her heart rate. She was then given adenosine which did not break the arrhythmia. Subsequently spontaneously converted to sinus rhythm. Cardiac enzymes are negative x2 sets. ECG during SVT demonstrates nonspecific ST changes. No recurrent SVT overnight. Currently resting comfortably. Denies any recent alcohol intake, caffeine, dehydration, or noncompliance with medications. Allergies Allergy/AdvReac Type Severity Reaction Status Date / Time Sulfa (Sulfonamide Allergy Severe ANAPHYLAXIS Verified 12/13/14 15:21 Antibiotics) adhesive Allergy Unknown RASH Verified 12/13/14 16:09 Home Medications Home Medications Medication Instructions Recorded Confirmed Type acetaminophen [Tylenol] 650 mg PO TID PRN 07/09/18 07/09/18 History albuterol sulfate [Ventolin HFA] 2 puff INHALATION Q6H PRN 07/09/18 07/09/18 History aspirin [Ecotrin Low Strength] 81 mg PO DAILY 07/09/18 07/09/18 History atorvastatin 40 mg PO DAILY 07/09/18 07/09/18 History cetirizine [Zyrtec] 10 mg PO HS 07/09/18 07/09/18 History empagliflozin [Jardiance] 25 mg PO DAILY 07/09/18 07/09/18 History fluticasone propionate [Flonase 2 spray INTRANASAL DAILY 07/09/18 07/09/18 History Allergy Relief] glimepiride 2 mg PO QAM 07/09/18 07/09/18 History lisinopril 2.5 mg PO DAILY 07/09/18 07/09/18 History metformin 850 mg PO BID 07/09/18 07/09/18 History metoprolol tartrate See Rx Instructions .ROUTE .COMPLEX 07/09/18 07/09/18 History multivitamin 1 tab PO DAILY 07/09/18 07/09/18 History nitroglycerin [Nitrostat] 0.4 mg SUBLINGUAL Q5M PRN 07/09/18 07/09/18 History omeprazole 20 mg PO DAILY 07/09/18 07/09/18 History tramadol 50 mg PO Q6H PRN 07/09/18 07/09/18 History warfarin 10 mg PO DAILY 07/09/18 07/09/18 History Patient History Medical History GERD (gastroesophageal reflux disease) (Chronic) Diabetes mellitus type 2 with complications (Chronic) Coronary artery disease (Chronic) Paroxysmal a-fib (Chronic 05/04/14) SVT (supraventricular tachycardia) (Chronic) Surgical History Status post coronary artery stent placement (Chronic) History of hysterectomy (Chronic) S/P cholecystectomy (Chronic) Family History Mother Systemic lupus erythematosus Cervical cancer Stroke Tuberculosis Rheumatoid arthritis Father Hypertension Heart disease Diabetes Leukemia Grandmother (Maternal) Tuberculosis Social History Preferred Language: Estonian Communication Ability: Effective Set Key Driver Required: No Beliefs That Will Affect Care: None Current Living Situation: Family and Other Current Living Situation Comment: lives with her son and nephew Other Information That Helps Us Care for You: No Feels Safe at Home: Yes Safety Concerns: Feels Safe At This Time Smoking Status: Former smoker Hx Alcohol Use: Yes Review of Systems Pertinent positives noted per HPI, conference of 10 system review otherwise negative. Physical Exam Vital Signs (Past 24 Hours): Last Vital Signs Temp 36.3 C L 07/09/18 07:31 Pulse 62 07/09/18 07:15 Resp 18 07/09/18 07:15 BP 118/74 07/09/18 07:15 Pulse Ox 97 07/09/18 07:15 Physical Exam: General: NAD, AAO x3, well nourished. Overweight. HEENT: Nor mocephalic. Atraumatic. Conjunctiva pink, no scleral icterus. Neck: No carotid bruits, the carotid upstrokes are brisk. No JVD. No HJR Heart: Regular normal S- 1 and S-2 no S-3 or S-4 gallop. No murmurs or rub appreciated. PMI is not displaced. No RV heave. Lungs: Clear bilateral without rales , rhonchi, or wheeze. Abdomen: Normal bowel sounds. Soft. Nontender. No masses or organomegaly. No abdominal bruits. Extremities: No clubbing, cyanosis, or edema. Pulses: radial=2/4, Dorsalis pedis =2/4, posterior tibial=2/4. Neuro: Cranial nerves grossly intact. No focal motor deficit. (1) Coronary artery disease Coronary Disease-Associated Artery/Lesion type: [place] artery [place] vs. transplanted heart: [place] heart Associated angina: with stable angina Qualified Code(s): I25.118 - Atherosclerotic heart disease of [place] coronary artery with other forms of angina pectoris
--- NOTE | 2018-07-09 09:39 | Hospitalist Progress Note ---
Date of Service July 09, 2018 delayed entry date of service as noted above Assessment & Plan (1) SVT (supraventricular tachycardia): remains in SR Cardiology consulted Metoprolol 50mg BID EP consulted (2) Coronary artery disease: resolved Continue aspirin, metoprolol, statin. (3) Paroxysmal a-fib: Continue metoprolol and warfarin. (4) GERD (gastroesophageal reflux disease): Continue PPI. (5) Diabetes mellitus type 2 with complications: Hold metformin and glimepiride during hospital stay. Lantus/NovoLog per protocol. (6) DVT prophylaxis: Anticoagulated on warfarin. (7) Discharge planning issues: Anticipated discharge to home. Family Medicine follow-up with Dr. Quiñonez. Cardiology follow-up with Dr. Jackson. Subjective ff up for SVT, chest pain seen resting in bed, comfortable states she feels fine overall no recurrence of chest discomfort remains in SR no other symptoms Physical Exam Vital Signs (Past 24 Hours): Last Vital Signs Temp 36.3 C L 07/09/18 07:31 Pulse 62 07/09/18 07:15 Resp 18 07/09/18 07:15 BP 118/74 07/09/18 07:15 Pulse Ox 97 07/09/18 07:15 Physical Exam: General- oriented x 3, not in distress, speaks in sentences with no effort or accessory muscle use Eyes- anicteric Neck- no JVD Lungs- clear breath sounds bilaterally, no rales/wheezes Heart- normal rate, regular rhythm; no murmurs Abdomen- normal bowel sounds, nondistended, soft, nontender Extremities- no pretibial edema, no calf tenderness Neuro- alert, oriented x 3; no gross focal neurologic deficits Skin- warm & dry Results & Data Laboratory Results noted and reviewed (1) Coronary artery disease Associated angina: with stable angina Coronary Disease-Associated Artery/Lesion type: [place] artery [place] vs. transplanted heart: [place] heart Qualified Code(s): I25.118 - Atherosclerotic heart disease of [place] coronary artery with other forms of angina pectoris
[2018-07-09] MEDS ORDERED: WARFARIN SOD 10 MG TAB PO SCH (16:00)
[2018-07-09] MEDS ORDERED: WARFARIN SOD 5 MG TAB PO SCH (16:00)
--- NOTE | 2018-07-09 17:57 | Cardiology Consultation ---
Date of Consultation July 09, 2018 Assessment & Plan (1) SVT (supraventricular tachycardia): I reviewed the rhythm strips from this admission, it is clearly a narrow complex SVT but I cannot tell for sure if it is a reentrant SVT or atrial flutter. I want to try to review rhythm strips from prior admissions. Is not unreasonable to consider electrophysiology study either for diagnosis or for ablation or both. Tentatively I discussed electrophysiology study and ablation fourth 2019. Further recommendations to follow. History of Present Illness Reason for Consultation: SVT Attending Physician: Alin Matthews MD History of Present Illness This is a very pleasant 52-year-old woman with a history of stent placement in 2014 and who has a history of palpitations (which she reports as atrial fibrillation in 2014) and developed recurrent palpitations with chest discomfort in the evening of July 08, 2018. She came into the emergency room where she was noted to be in SVT with a heart rate of around 150 bpm. She had transiently slowing of her heart rate with Valsalva or adenosine (based on review of telem etry) however the arrhythmia did not terminate until sometime later when it spontaneously converted to sinus rhythm. Electrocardiogram during SVT is a regular rhythm at 154 bpm and atrial activity is not clearly present although may be present on the T wave. Allergies Allergy/AdvReac Type Severity Reaction Status Date / Time Sulfa (Sulfonamide Allergy Severe ANAPHYLAXIS Verified 12/13/14 15:21 Antibiotics) adhesive Allergy Unknown RASH Verified 12/13/14 16:09 Home Medications Home Medications Medication Instructions Recorded Confirmed Type Jardiance 25 mg PO DAILY 07/09/18 07/09/18 History acetaminophen [Tylenol] 650 mg PO TID PRN 07/09/18 07/09/18 History albuterol sulfate [Ventolin HFA] 2 puff INHALATION Q6H PRN 07/09/18 07/09/18 History aspirin [Ecotrin Low Strength] 81 mg PO DAILY 07/09/18 07/09/18 History atorvastatin 40 mg PO DAILY 07/09/18 07/09/18 History cetirizine [Zyrtec] 10 mg PO HS 07/09/18 07/09/18 History fluticasone propionate [Flonase 2 spray INTRANASAL DAILY 07/09/18 07/09/18 History Allergy Relief] glimepiride 2 mg PO QAM 07/09/18 07/09/18 History lisinopril 2.5 mg PO DAILY 07/09/18 07/09/18 History metformin 850 mg PO BID 07/09/18 07/09/18 History multivitamin 1 tab PO DAILY 07/09/18 07/09/18 History nitroglycerin [Nitrostat] 0.4 mg SUBLINGUAL Q5M PRN 07/09/18 07/09/18 History omeprazole 20 mg PO DAILY 07/09/18 07/09/18 History tramadol 50 mg PO Q6H PRN 07/09/18 07/09/18 History warfarin 10 mg PO DAILY 07/09/18 07/09/18 History metoprolol tartrate 50 mg PO BID 30 Days #60 tab 07/12/18 Rx Patient History Medical History GERD (gastroesophageal reflux disease) (Chronic) Diabetes mellitus type 2 with complications (Chronic) Coronary artery disease (Chronic) Paroxysmal a-fib (Chronic 05/04/14) SVT (supraventricular tachycardia) (Chronic) Surgical History Status post coronary artery stent placement (Chronic) History of hysterectomy (Chronic) S/P cholecystectomy (Chronic) Family History Mother Systemic lupus erythematosus Cervical cancer Stroke Tuberculosis Rheumatoid arthritis Father Hypertension Heart disease Diabetes Leukemia Grandmother (Maternal) Tuberculosis Social History Smoking Status: Former smoker substance use type: does not use Physical Exam Vital Signs (Past 24 Hours): Last Vital Signs Temp 36.4 C L 07/09/18 16:00 Pulse 58 L 07/09/18 16:05 Resp 20 07/09/18 16:00 BP 122/81 07/09/18 16:00 Pulse Ox 97 07/09/18 16:00 Physical Exam: Constitutional: Alert, cooperative and in no distress. HEENT: Unremarkable Neck: No jugular venous distention, carotid pulses are normal and equal bilaterally without bruits. Pulmonary: Clear to auscultation bilaterally. Cardiac: Regular rhythm with no murmur, gallop or rub. Abdomen: Soft, nontender with normal bowel sounds. Extremities: No edema. Distal pulses intact. Neurologic: No focal findings. Gait is steady. Skin: No rash, ecchymoses or petechiae. Results & Data Diagnostic Findings Her presenting electrocardiogram shows a narrow complex supraventricular tachycardia at 154 bpm. There is no clear atrial activity although it may be present in the T wave. Telemetry: Review of telemetry strip shows periods where there appears to be slowing suggesting some type of AV conduction delay, this would make it less likely to be an AV leti reentrant arrhythmia or a bypass tract tachycardia.
[2018-07-09] MEDS ORDERED: METOPROLOL TARTRATE 25 MG TAB PO SCH (21:00)
[2018-07-09] MEDS: METOPROLOL TARTRATE 50 MG TAB PO SCH (21:29)
[2018-07-10] MEDS: D5W AND LACTATED RINGERS 1,000 ML IV SCH (00:08)
[2018-07-10 07:00] LABS: Prothrombin Time 19.8 Seconds (9.0-12.0)
[2018-07-10] MEDS: PANTOprazole 40 MG TAB PO SCH (07:45)
[2018-07-10] MEDS: LISINOPRIL 2.5 MG TAB PO SCH (07:45)
[2018-07-10] MEDS: ATORVASTATIN 40 MG TAB PO SCH (07:45)
[2018-07-10] MEDS: METOPROLOL TARTRATE 50 MG TAB PO SCH ×2 (07:45→21:28)
[2018-07-10] MEDS: ASPIRIN 81 MG ECTAB PO SCH (07:46)
[2018-07-10] MEDS: FLUTICASONE PROPIONATE NA SPR 16 GM BTL NAE SCH (07:46)
[2018-07-10] MEDS: INSULIN ASPART 100 UNITS/ML 3 ML PEN SC SCH ×4 (07:50→21:46)
--- NOTE | 2018-07-10 11:34 | Cardiology Progress Note ---
Date of Service July 10, 2018 Assessment & Plan (1) SVT (supraventricular tachycardia): Patient scheduled for electrophysiology study in a.m. Continue beta- jimmy therapy. EP input appreciated. (2) Acute chest pain: Pain-free at this time. Cardiac enzymes will be trended x3 sets. (3) Coronary artery disease: (4) Status post coronary artery stent placement: (5) Paroxysmal a-fib: No recurrence. INR therapeutic. Anticoagulation on hold. Subjective Patient seen and examined at the bedside. No recurrent palpitations. Remains in sinus rhythm on telemetry. Denies chest pain or shortness of breath. Tolerating current medications. EP input appreciated. Review of Systems All systems reviewed & are unremarkable except as noted in HPI & below Physical Exam Vital Signs (Past 24 Hours): Last Vital Signs Temp 36.4 C L 07/10/18 11:27 Pulse 54 L 07/10/18 11:27 Resp 18 07/10/18 11:27 BP 112/70 07/10/18 11:27 Pulse Ox 97 07/10/18 11:27 Physical Exam: General: NAD, AAO x3, well nourished. HEENT: Normocephalic. Atraumatic. Conjunctiva pink, no scleral icterus. Neck: No carotid bruits, the carotid upstrokes are brisk. No JVD. No HJR Heart: Regular normal S-1 and S-2 no S-3 or S-4 gallop. No murmurs or rub appreciated. PMI is not displaced. No RV heave. Lungs: Clear bilateral without rales , rhonchi, or wheeze. Abdomen: Normal bowel sounds. Soft. Nontender. No masses or organomegaly. No abdominal bruits. Extremities: No clubbing, cyanosis, or edema. Pulses: radial=2/4, Dorsalis pedis =2/4, posterior tibial=2/4. Neuro: Cranial nerves grossly intact. No focal motor deficit. (1) Coronary artery disease Coronary Disease-Associated Artery/Lesion type: [place] artery [place] vs. transplanted heart: [place] heart Associated angina: with stable angina Qualified Code(s): I25.118 - Atherosclerotic heart disease of [place] coronary artery with other forms of angina pectoris
--- NOTE | 2018-07-10 16:19 | Hospitalist Progress Note ---
Date of Service July 10, 2018 Assessment & Plan (1) SVT (supraventricular tachycardia): Recurrent SVT tonight associated with chest pain. Converted to sinus rhythm after receiving IV adenosine. Electrolytes are normal Continue metoprolol for now Consult Cardiology-appreciate input and recommendation Going to have EP studies tomorrow (2) Coronary artery disease: Chest pain tonight associated with SVT. Known ischemic heart disease, status post non-STEMI with PCI/stenting RCA in 2014. Continue aspirin, metoprolol, statin. No more chest pain today Awaiting EP studies (3) Paroxysmal a-fib: Continue metoprolol and warfarin. Heart rate is controlled (4) GERD (gastroesophageal reflux disease): Continue PPI. (5) Diabetes mellitus type 2 with complications: Usually well controlled on oral agents. Random glucose 115. Check hemoglobin A1c. Hold metformin and glimepiride during hospital stay. Lantus/NovoLog per protocol. (6) DVT prophylaxis: Anticoagulated on warfarin. (7) Discharge planning issues: Anticipated discharge to home. Family Medicine follow-up with Dr. Quiñonez. Cardiology follow-up with Dr. Jackson. Subjective 07/10 The patient was seen and examined in telemetry unit She was admitted with palpitations associated with midsternal chest pressure. Noted to have SVT with bradycardia at the time Denies any symptoms Awaiting EP study tomorrow Ear, Nose, Mouth, Throat: + nasal congestion; no sore throat Respiratory: + cough (mild); no dyspnea Cardiovascular: as per Subjective / HPI Musculoskeletal: + joint pain (back, knees); no myalgia Neurologic: + headache(s) (occasional) Hematologic / Lymphatic: + easy bruising; no easy bleeding and no lymphadenopathy Physical Exam Vital Signs (Past 24 Hours): Last Vital Signs Temp 36.4 C L 07/10/18 15:09 Pulse 53 L 07/10/18 15:09 Resp 18 07/10/18 15:09 BP 119/81 07/10/18 15:09 Pulse Ox 98 07/10/18 15:09 Physical Exam: No apparent distress at rest Constitutional: WD/WN, vitals as above no acute distress Eyes: PERRL, conjunctivae normal, anicteric sclerae ENMT: external ear and nose normal, oropharynx normal Neck: trachea midline, no thyromegaly Respiratory: normal respiratory effort, lungs clear to auscultation Cardiovascular: Rate/Rhythm: regular rate Heart Sounds: + murmur (I/ sys murmur LSB); no gallop and no cardiac rub Vessels: normal peripheral pulses; no JVD Extremities: normal capillary refill; no calf tenderness and no edema Gastrointestinal (Abdomen): normal bowel sounds, soft, nontender, no hepatosplenomegaly Musculoskeletal: Head/Neck/Chest: neck supple Extremities: strength 5/5 throughout; no cyanosis and no clubbing Skin: no rashes, warm and dry Neurologic: PERRL, EOMI, accommodation nl, no face palsy, no dysarthria Psychiatric: Orientation: alert and oriented x 3 Affect: euthymic affect Lymphatic: no cervical lymphadenopathy Results & Data Medications Administered Current Inpatient Medications Acetaminophen (Tylenol) 650 mg PO TID PRN PRN Reason: Pain Stop: 08/08/18 02:53 Acetaminophen (Tylenol) 650 mg PO Q4H PRN PRN Reason: Pain or Fever Stop: 08/08/18 04:11 Albuterol (Ventolin Hfa) 2 puffs INH Q6H PRN PRN Reason: Wheezing Stop: 08/08/18 02:53 Aspirin (Ecotrin Ectab) 81 mg PO DAILY MARIELOS Stop: 08/08/18 08:59 Last Admin: 07/10/18 07:46 Dose: 81 mg Documented by: Atorvastatin Calcium (Lipitor) 40 mg PO DAILY MARIELOS Stop: 08/08/18 08:59 Last Admin: 07/10/18 07:45 Dose: 40 mg Documented by: Cetirizine HCl (Zyrtec) 10 mg PO HS [facility] Stop: 08/08/18 20:59 Last Admin: 07/09/18 21:30 Dose: 10 mg Documented by: Dextrose (Dextrose 50%) 25 - 50 ml IV UD PRN; Protocol PRN Reason: Hypoglycemia Protocol Stop: 08/08/18 03:14 Fluticasone Propionate (Flonase) 2 sprays CINDY DAILY [facility] Stop: 08/08/18 08:59 Last Admin: 07/10/18 07:46 Dose: 2 sprays Documented by: Glucagon (Glucagen) 1 mg IM UD PRN; Protocol PRN Reason: Hypoglycemia Protocol Stop: 08/08/18 03:14 Glucose (Glucose 40%) 15 - 30 gm PO UD PRN; Protocol PRN Reason: Hypoglycemia Protocol Stop: 08/08/18 03:14 Glucose (Dex4 Glucose) 4 - 8 tabs PO UD PRN; Protocol PRN Reason: Hypoglycemia Protocol Stop: 08/08/18 03:14 Insulin Aspart (Novolog Flexpen) 0 units SC ACHS [facility] Stop: 08/08/18 07:29 Last Admin: 07/10/18 13:40 Dose: Not Given Documented by: Lisinopril (Zestril) 2.5 mg PO DAILY MARIELOS Stop: 08/08/18 08:59 Last Admin: 07/10/18 07:45 Dose: 2.5 mg Documented by: Metoprolol Tartrate (Lopressor) 50 mg PO BID MARIELOS Stop: 08/08/18 20:59 Last Admin: 07/10/18 07:45 Dose: 50 mg Documented by: Miscellaneous (Carbohydrates For Hypoglycemia) 15 - 30 gm PO UD PRN PRN Reason: Hypoglycemia Treatment Stop: 08/08/18 03:14 Nitroglycerin (Nitrostat) 0.4 mg SL UD PRN PRN Reason: Chest Pain Stop: 08/08/18 04:11 Pantoprazole Sodium (Protonix) 40 mg PO QAM [facility] Stop: 08/08/18 08:59 Last Admin: 07/10/18 07:45 Dose: 40 mg Documented by: Tramadol HCl (Ultram) 50 mg PO Q6H PRN PRN Reason: Pain Stop: 08/08/18 02:53 Warfarin Sodium (Coumadin) 10 mg PO DAILY@1600 [facility] Stop: 08/08/18 15:59 (1) Coronary artery disease Coronary Disease-Associated Artery/Lesion type: [place] artery [place] vs. transplanted heart: [place] heart Associated angina: with stable angina Qualified Code(s): I25.118 - Atherosclerotic heart disease of [place] coronary artery with other forms of angina pectoris
[2018-07-10] MEDS: CETIRIZINE HCL 10 MG TABLET PO SCH (21:28)
[2018-07-11] MEDS: ASPIRIN 81 MG ECTAB PO SCH (08:11)
[2018-07-11] MEDS: ATORVASTATIN 40 MG TAB PO SCH (08:11)
[2018-07-11] MEDS: PANTOprazole 40 MG TAB PO SCH (08:11)
[2018-07-11] MEDS: METOPROLOL TARTRATE 50 MG TAB PO SCH ×2 (08:11→20:16)
[2018-07-11] MEDS: LISINOPRIL 2.5 MG TAB PO SCH (08:11)
[2018-07-11 08:12] LABS: INR 1.3 (0.9-1.1); Prothrombin Time 12.9 Seconds (9.0-12.0)
[2018-07-11] MEDS: FLUTICASONE PROPIONATE NA SPR 16 GM BTL NAE SCH (08:12)
[2018-07-11] MEDS: INSULIN ASPART 100 UNITS/ML 3 ML PEN SC SCH ×4 (08:13→20:19)
[2018-07-11 08:19] LABS: BUN Creatinine Ratio 19.4 (10-20); Calcium 9.4 mg/dl (8.5-10.1); Creatinine Clr Calc Pharmacy 121.8 ml/min; Est GFR (African American) 115.7; Est GFR (Non-African American) 99.9; Magnesium 2.2 mg/dl (1.8-2.4); Potassium 4.8 mmol/L (3.5-5.1)
--- NOTE | 2018-07-11 11:13 | Cardiology Progress Note ---
Date of Service July 11, 2018 Assessment & Plan (1) SVT (supraventricular tachycardia): Patient scheduled for electrophysiology study today. Continue beta- jimmy. (2) Acute chest pain: Secondary to tachydysrhythmia. Cardiac enzymes undetectable (3) Coronary artery disease: (4) Status post coronary artery stent placement: (5) Paroxysmal a-fib: No recurrence. INR 1.3 today. Anticoagulation on hold. Subjective Patient seen and examined at the bedside. No recurrent palpitations overnight. Remains in sinus rhythm on telemetry. Denies chest pain or shortness of breath. Tolerating medications. Offers no complaints. Review of Systems All systems reviewed & are unremarkable except as noted in HPI & below Physical Exam Vital Signs (Past 24 Hours): Last Vital Signs Temp 36.6 C 07/11/18 07:12 Pulse 53 L 07/11/18 07:12 Resp 18 07/11/18 07:12 BP 104/71 07/11/18 07:12 Pulse Ox 94 07/11/18 07:12 Physical Exam: General: NAD, AAO x3, well nourished. HEENT: Normocephalic. Atraumatic. Conjunctiva pink, no scleral icterus. Neck: No carotid bruits, the carotid upstrokes are brisk. No JVD. No HJR Heart: Regular normal S-1 and S-2 no S-3 or S-4 gallop. No murmurs or rub appreciated. PMI is not displaced. No RV heave. Lungs: Clear bilateral without rales , rhonchi, or wheeze. Abdomen: Normal bowel sounds. Soft. Nontender. No masses or organomegaly. No abdominal bruits. Extremities: No clubbing, cyanosis, or edema. Pulses: radial=2/4, Dorsalis pedis =2/4, posterior tibial=2/4. Neuro: Cranial nerves grossly intact. No focal motor deficit. (1) Coronary artery disease Coronary Disease-Associated Artery/Lesion type: [place] artery [place] vs. transplanted heart: [place] heart Associated angina: with stable angina Qualified Code(s): I25.118 - Atherosclerotic heart disease of [place] coronary artery with other forms of angina pectoris
[2018-07-11] MEDS ORDERED: fentaNYL citrate 100 MCG/2 ML VIAL ONE ×2 (11:38→12:20)
[2018-07-11] MEDS ORDERED: MIDAZOLAM HCL 5 MG/ML 1 ML VIAL ONE ×2 (11:38→12:20)
--- NOTE | 2018-07-11 11:48 | Pre Anesthesia Assessment ---
Date of Service July 11, 2018 Pre Sedation Assessment Vital Signs Temp Pulse Pulse Resp BP BP Pulse Ox 07/11/18 07:12 36.6 C 53 L 18 104/71 94 07/11/18 04:06 36.7 C 58 L 16 104/68 94 07/10/18 23:45 36.7 C 60 16 112/77 97 07/10/18 23:04 56 L 07/10/18 21:20 61 115/78 07/10/18 19:43 36.7 C 60 16 109/73 95 07/10/18 15:09 36.4 C L 53 L 18 119/81 98 Cardiovascular + regular rate Respiratory + respiratory effort normal Pre-Sedation Airway Assessment Smoking Status: Former smoker Hx Sleep Apnea: No Hx Difficult Intubation: No Short, Thick Neck: No Thyromental Distance: > or= 3.5 Finger Breadths Oral Cavity: + WNL Mallampati Class: I ASA: ASA2 NPO Status Date of Last Intake of Fluids: 07/10/18 Time of Last Intake of Fluids: 21:30 Date of Last Intake of Solid Food: 07/10/18 Time of Last Intake of Solid Foods: 21:30 Procedure Planning Contraindications for Sedation: none Current Medications Reviewed: Yes Notes The planned sedation has been discussed with the patient. Informed Consent was obtained. I have identified the patient, determined the appropriateness of sedation and have assessed the patient immediately prior to the procedure. All medicine(s) and interventions are by my order.
[2018-07-11] MEDS ORDERED: ISOPROTERENOL 200 MCG / 50ML D5W IV ONE (12:34)
[2018-07-11] MEDS ORDERED: OXYCODONE HCL IR 5 MG TAB (IMMEDIATE RELEASE) PO PRN (13:33)
--- NOTE | 2018-07-11 13:33 | Post Operative Brief Note ---
Cardiology Brief Post Op Date of Surgery July 11, 2018 Pre & Post Diagnosis Operation Date: 07/11/18 09:00 <No data on this case meets the specified criteria> Procedure Electrophysiologic testing and 3D electro anatomical mapping performed via right IJ and right femoral venous access Normal baseline intracardiac intervals without evidence of retrograde conduction No evidence of accessory pathway conduction Inducible SVT, ectopic atrial tachycardia Activation mapping suggested a para-Hisian focus Probing for PFO was unsuccessful No immediate complications Neonatal Specialist Lucius Kelly MD Co Founder none Estimated Blood Loss 5 Findings Consistent with Post-Op Diagnosis
--- NOTE | 2018-07-11 17:26 | Hospitalist Progress Note ---
Date of Service July 11, 2018 Assessment & Plan (1) SVT (supraventricular tachycardia): remains in SR Cardiology consulted Metoprolol 50mg BID We will have the studies today and further management depending on that (2) Coronary artery disease: resolved Continue aspirin, metoprolol, statin. Remains stable and denies any chest pain and/or palpitation (3) Paroxysmal a-fib: Continue metoprolol and warfarin. Heart rate is controlled did not have any more arrhythmias (4) GERD (gastroesophageal reflux disease): Continue PPI. (5) Diabetes mellitus type 2 with complications: Hold metformin and glimepiride during hospital stay. Lantus/NovoLog per protocol. (6) DVT prophylaxis: Anticoagulated on warfarin. (7) Discharge planning issues: Anticipated discharge to home. Family Medicine follow-up with Dr. Quiñonez. Cardiology follow-up with Dr. Jackson. Subjective 07/11 The patient was seen and examined in telemetry unit She will have EP study this morning Denies any symptoms Ear, Nose, Mouth, Throat: + nasal congestion; no sore throat Respiratory: + cough (mild); no dyspnea Cardiovascular: as per Subjective / HPI Musculoskeletal: + joint pain (back, knees); no myalgia Neurologic: + headache(s) (occasional) Hematologic / Lymphatic: + easy bruising; no easy bleeding and no lymphadenopathy Physical Exam Vital Signs (Past 24 Hours): Last Vital Signs Temp 36.4 C L 07/11/18 15:18 Pulse 63 07/11/18 15:18 Resp 18 07/11/18 15:18 BP 104/79 07/11/18 15:18 Pulse Ox 95 07/11/18 15:18 Physical Exam: Sitting on a chair without any symptoms Constitutional: WD/WN, vitals as above no acute distress Eyes: PERRL, conjunctivae normal, anicteric sclerae ENMT: external ear and nose normal, oropharynx normal Neck: trachea midline, no thyromegaly Respiratory: normal respiratory effort, lungs clear to auscultation Cardiovascular: Rate/Rhythm: regular rate Heart Sounds: + murmur (I/ sys murmur LSB); no gallop and no cardiac rub Vessels: normal peripheral pulses; no JVD Extremities: normal capillary refill; no calf tenderness and no edema Gastrointestinal (Abdomen): normal bowel sounds, soft, nontender, no hepatosplenomegaly Musculoskeletal: Head/Neck/Chest: neck supple Extremities: strength 5/5 throughout; no cyanosis and no clubbing Skin: no rashes, warm and dry Neurologic: PERRL, EOMI, accommodation nl, no face palsy, no dysarthria Psychiatric: Orientation: alert and oriented x 3 Affect: euthymic affect Lymphatic: no cervical lymphadenopathy Results & Data Laboratory Results [facility] 07/11/18 07:44 Sodium 143 Potassium 4.8 Chloride 109 H Carbon Dioxide 31 BUN 13 Creatinine 0.68 Glucose 155 H Calcium 9.4 Medications Administered Current Inpatient Medications Acetaminophen (Tylenol) 650 mg PO TID PRN PRN Reason: Pain Stop: 08/08/18 02:53 Acetaminophen (Tylenol) 650 mg PO Q4H PRN PRN Reason: Pain or Fever Stop: 08/08/18 04:11 Albuterol (Ventolin Hfa) 2 puffs INH Q6H PRN PRN Reason: Wheezing Stop: 08/08/18 02:53 Aspirin (Ecotrin Ectab) 81 mg PO DAILY [facility] Stop: 08/08/18 08:59 Last Admin: 07/11/18 08:11 Dose: 81 mg Documented by: Atorvastatin Calcium (Lipitor) 40 mg PO DAILY [facility] Stop: 08/08/18 08:59 Last Admin: 07/11/18 08:11 Dose: 40 mg Documented by: Cetirizine HCl (Zyrtec) 10 mg PO HS [facility] Stop: 08/08/18 20:59 Last Admin: 07/10/18 21:28 Dose: 10 mg Documented by: Dextrose (Dextrose 50%) 25 - 50 ml IV UD PRN; Protocol PRN Reason: Hypoglycemia Protocol Stop: 08/08/18 03:14 Fluticasone Propionate (Flonase) 2 sprays CINDY DAILY [facility] Stop: 08/08/18 08:59 Last Admin: 07/11/18 08:12 Dose: 2 sprays Documented by: Glucagon (Glucagen) 1 mg IM UD PRN; Protocol PRN Reason: Hypoglycemia Protocol Stop: 08/08/18 03:14 Glucose (Glucose 40%) 15 - 30 gm PO UD PRN; Protocol PRN Reason: Hypoglycemia Protocol Stop: 08/08/18 03:14 Glucose (Dex4 Glucose) 4 - 8 tabs PO UD PRN; Protocol PRN Reason: Hypoglycemia Protocol Stop: 08/08/18 03:14 Insulin Aspart (Novolog Flexpen) 0 units SC ACHS [facility] Stop: 08/08/18 07:29 Last Admin: 07/11/18 14:11 Dose: Not Given Documented by: Lisinopril (Zestril) 2.5 mg PO DAILY [facility] Stop: 08/08/18 08:59 Last Admin: 07/11/18 08:11 Dose: 2.5 mg Documented by: Metoprolol Tartrate (Lopressor) 50 mg PO BID [facility] Stop: 08/08/18 20:59 Last Admin: 07/11/18 08:11 Dose: 50 mg Documented by: Miscellaneous (Carbohydrates For Hypoglycemia) 15 - 30 gm PO UD PRN PRN Reason: Hypoglycemia Treatment Stop: 08/08/18 03:14 Nitroglycerin (Nitrostat) 0.4 mg SL UD PRN PRN Reason: Chest Pain Stop: 08/08/18 04:11 Oxycodone HCl (Roxicodone Immediate Rel) 5 mg PO Q4 PRN PRN Reason: Pain Stop: 07/25/18 13:32 Pantoprazole Sodium (Protonix) 40 mg PO QAM [facility] Stop: 08/08/18 08:59 Last Admin: 07/11/18 08:11 Dose: 40 mg Documented by: Tramadol HCl (Ultram) 50 mg PO Q6H PRN PRN Reason: Pain Stop: 08/08/18 02:53 Warfarin Sodium (Coumadin) 10 mg PO DAILY@1600 [facility] Stop: 08/08/18 15:59 (1) Coronary artery disease Coronary Disease-Associated Artery/Lesion type: [place] artery [place] vs. transplanted heart: [place] heart Associated angina: with stable angina Qualified Code(s): I25.118 - Atherosclerotic heart disease of [place] coronary artery with other forms of angina pectoris
[2018-07-11] MEDS: CETIRIZINE HCL 10 MG TABLET PO SCH (20:16)
[2018-07-12] MEDS: METOPROLOL TARTRATE 50 MG TAB PO SCH (08:13)
[2018-07-12] MEDS: LISINOPRIL 2.5 MG TAB PO SCH (08:14)
[2018-07-12] MEDS: ATORVASTATIN 40 MG TAB PO SCH (08:14)
[2018-07-12] MEDS: PANTOprazole 40 MG TAB PO SCH (08:14)
[2018-07-12] MEDS: ASPIRIN 81 MG ECTAB PO SCH (08:14)
[2018-07-12] MEDS: FLUTICASONE PROPIONATE NA SPR 16 GM BTL NAE SCH (08:14)
[2018-07-12] MEDS: INSULIN ASPART 100 UNITS/ML 3 ML PEN SC SCH ×2 (08:16→12:52)
[2018-07-12 09:33] LABS: INR 1.1 (0.9-1.1); Prothrombin Time 11.2 Seconds (9.0-12.0)
[2018-07-12 09:52] LABS: BUN Creatinine Ratio 20.8 (10-20); Calcium 9.7 mg/dl (8.5-10.1); Creatinine Clr Calc Pharmacy 113.5 ml/min; Potassium 4.5 mmol/L (3.5-5.1)
--- NOTE | 2018-07-12 10:06 | Cardiology Progress Note ---
Date of Service July 12, 2018 Assessment & Plan (1) SVT (supraventricular tachycardia): Electrophysiologic testing and 3D activation mapping yesterday suggested that the atrial tachycardia originated in the para-Hisian area. It is possible this represents a left atrial tachycardia that could not be mapped from the right side. We discussed several options for treatment including watchful waiting, initiation of antiarrhythmic therapy or repeat electrophysiologic testing including mapping of the left atrium. At this point she seems willing to simply monitor for additional symptoms and perhaps pursue another ablation with recurrence. She is certainly safe for discharge today. She should refrain from heavy lifting more than 10 pounds or strenuous activity for at least 5 days. No other restrictions. Subjective This morning patient claims to be feeling well. No significant pain at the access sites. Ambulatory around the room without significant dizziness. No additional episodes of tachycardia. Physical Exam Vital Signs (Past 24 Hours): Last Vital Signs Temp 36.5 C 07/12/18 07:04 Pulse 68 07/12/18 07:04 Resp 18 07/12/18 07:04 BP 97/66 L 07/12/18 07:04 Pulse Ox 95 07/12/18 07:04 Physical Exam: Alert and oriented. Answered all questions appropriately. Access sites without bleeding.
--- NOTE | 2018-07-12 10:58 | Cardiology Progress Note ---
Date of Service July 12, 2018 Assessment & Plan (1) SVT (supraventricular tachycardia): EP study performed 07/11/18 suggesting para-hisian focus versus left atrial origin of atrial tachycardia. Ablation was not performed. Patient will be referred for evaluation with electrophysiology at [facility]. This will be scheduled in the outpatient setting. Continue metoprolol 50 mg twice daily. May consider sotalol loading in the future if patient experiences recurrent symptomatic dysrhythmia. I offered to load her with sotalol currently, however, she is requesting discharge at this time. (2) Acute chest pain: Secondary to tachydysrhythmia. Cardiac enzymes undetectable (3) Coronary artery disease: Continue outpatient medications. (4) Status post coronary artery stent placement: (5) Paroxysmal a-fib: Restart Coumadin. Goal INR 2.0-3.0. No indication for bridging therapy currently. Subjective Patient seen and examined the bedside. EP study performed 07/11/18. No ablation performed. Possible left atrial focus of atrial tachycardia vs. para-Hisian focus. Patient observed overnight. No recurrent tachycardia. Denies palpitations or chest pain. Anxious for discharge. Review of Systems All systems reviewed & are unremarkable except as noted in HPI & below Physical Exam Vital Signs (Past 24 Hours): Last Vital Signs Temp 36.5 C 07/12/18 07:04 Pulse 68 07/12/18 07:04 Resp 18 07/12/18 07:04 BP 97/66 L 07/12/18 07:04 Pulse Ox 95 07/12/18 07:04 Physical Exam: General: NAD, AAO x3, well nourished. Overweight. HEENT: Normocephalic. Atraumatic. Conjunctiva pink, no scleral icterus. Neck: No carotid bruits, the carotid upstrokes are brisk. No JVD. No HJR Heart: Regular normal S-1 and S-2 no S-3 or S-4 gallop. No murmurs or rub appreciated. PMI is not displaced. No RV heave. Lungs: Clear bilateral without rales , rhonchi, or wheeze. Abdomen: Normal bowel sounds. Soft. Nontender. No masses or organomegaly. No abdominal bruits. Extremities: No clubbing, cyanosis, or edema. Pulses: radial=2/4, Dorsalis pedis =2/4, posterior tibial=2/4. Neuro: Cranial nerves grossly intact. No focal motor deficit. (1) Coronary artery disease Coronary Disease-Associated Artery/Lesion type: [place] artery [place] vs. transplanted heart: [place] heart Associated angina: with stable angina Qualified Code(s): I25.118 - Atherosclerotic heart disease of [place] coronary artery with other forms of angina pectoris
--- NOTE | 2018-07-12 12:03 | Hospitalist Progress Note ---
Date of Service July 12, 2018 Assessment & Plan (1) SVT (supraventricular tachycardia): Remains in SR Cardiology consulted Metoprolol 50mg BID We will have the studies today and further management depending on that Status post EP study performed 07/11/18 suggesting para-hisian focus versus left atrial origin of atrial tachycardia Remains in sinus rhythm and rate is controlled No more episode of SVT Will need to have repeat EP studies in [place] if symptoms persist (2) Coronary artery disease: resolved Continue aspirin, metoprolol, statin. Remains stable and denies any chest pain and/or palpitation (3) Paroxysmal a-fib: Continue metoprolol and warfarin. Heart rate is controlled did not have any more arrhythmias Continue increasing dose of beta-jimmy (4) GERD (gastroesophageal reflux disease): Continue PPI. (5) Diabetes mellitus type 2 with complications: Hold metformin and glimepiride during hospital stay. Lantus/NovoLog per protocol. (6) DVT prophylaxis: Anticoagulated on warfarin. (7) Discharge planning issues: Anticipated discharge to home. Family Medicine follow-up with Dr. Quiñonez. Cardiology follow-up with Dr. Jackson. Subjective 07/11 The patient was seen and examined in telemetry unit She will have EP study this morning Denies any symptoms 07/12 The patient was seen and examined in telemetry unit She is status post EP study that was done yesterday She denies any symptoms today She will be discharged home Ear, Nose, Mouth, Throat: + nasal congestion; no sore throat Respiratory: + cough (mild); no dyspnea Cardiovascular: as per Subjective / HPI Musculoskeletal: + joint pain (back, knees); no myalgia Neurologic: + headache(s) (occasional) Hematologic / Lymphatic: + easy bruising; no easy bleeding and no lymphadenopathy Physical Exam Vital Signs (Past 24 Hours): Last Vital Signs Temp 36.7 C 07/12/18 11:00 Pulse 59 L 07/12/18 11:00 Resp 18 07/12/18 11:00 BP 102/74 07/12/18 11:00 Pulse Ox 97 07/12/18 11:00 Physical Exam: No apparent distress at rest Constitutional: WD/WN, vitals as above no acute distress Eyes: PERRL, conjunctivae normal, anicteric sclerae ENMT: external ear and nose normal, oropharynx normal Neck: trachea midline, no thyromegaly Respiratory: normal respiratory effort, lungs clear to auscultation Cardiovascular: Rate/Rhythm: regular rate Heart Sounds: + murmur (I/ sys murmur LSB); no gallop and no cardiac rub Vessels: normal peripheral pulses; no JVD Extremities: normal capillary refill; no calf tenderness and no edema Gastrointestinal (Abdomen): normal bowel sounds, soft, nontender, no hepatosp lenomegaly Musculoskeletal: Head/Neck/Chest: neck supple Extremities: strength 5/5 throughout; no cyanosis and no clubbing Skin: no rashes, warm and dry Neurologic: PERRL, EOMI, accommodation nl, no face palsy, no dysarthria Psychiatric: Orientation: alert and oriented x 3 Affect: euthymic affect Lymphatic: no cervical lymphadenopathy Results & Data Laboratory Results [facility] 07/12/18 08:50 Sodium 140 Potassium 4.5 Chloride 106 Carbon Dioxide 29 BUN 15 Creatinine 0.73 Glucose 216 H Calcium 9.7 Medications Administered Current Inpatient Medications Acetaminophen (Tylenol) 650 mg PO TID PRN PRN Reason: Pain Stop: 08/08/18 02:53 Acetaminophen (Tylenol) 650 mg PO Q4H PRN PRN Reason: Pain or Fever Stop: 08/08/18 04:11 Albuterol (Ventolin Hfa) 2 puffs INH Q6H PRN PRN Reason: Wheezing Stop: 08/08/18 02:53 Aspirin (Ecotrin Ectab) 81 mg PO DAILY [facility] Stop: 08/08/18 08:59 Last Admin: 07/12/18 08:14 Dose: 81 mg Documented by: Atorvastatin Calcium (Lipitor) 40 mg PO DAILY [facility] Stop: 08/08/18 08:59 Last Admin: 07/12/18 08:14 Dose: 40 mg Documented by: Cetirizine HCl (Zyrtec) 10 mg PO HS [facility] Stop: 08/08/18 20:59 Last Admin: 07/11/18 20:16 Dose: 10 mg Documented by: Dextrose (Dextrose 50%) 25 - 50 ml IV UD PRN; Protocol PRN Reason: Hypoglycemia Protocol Stop: 08/08/18 03:14 Fluticasone Propionate (Flonase) 2 sprays CINDY DAILY [facility] Stop: 08/08/18 08:59 Last Admin: 07/12/18 08:14 Dose: 2 sprays Documented by: Glucagon (Glucagen) 1 mg IM UD PRN; Protocol PRN Reason: Hypoglycemia Protocol Stop: 08/08/18 03:14 Glucose (Glucose 40%) 15 - 30 gm PO UD PRN; Protocol PRN Reason: Hypoglycemia Protocol Stop: 08/08/18 03:14 Glucose (Dex4 Glucose) 4 - 8 tabs PO UD PRN; Protocol PRN Reason: Hypoglycemia Protocol Stop: 08/08/18 03:14 Insulin Aspart (Novolog Flexpen) 0 units SC ACHS [facility] Stop: 08/08/18 07:29 Last Admin: 07/12/18 08:16 Dose: 6 units Documented by: Lisinopril (Zestril) 2.5 mg PO DAILY [facility] Stop: 08/08/18 08:59 Last Admin: 07/12/18 08:14 Dose: 2.5 mg Documented by: Metoprolol Tartrate (Lopressor) 50 mg PO BID [facility] Stop: 08/08/18 20:59 Last Admin: 07/12/18 08:13 Dose: 50 mg Documented by: Miscellaneous (Carbohydrates For Hypoglycemia) 15 - 30 gm PO UD PRN PRN Reason: Hypoglycemia Treatment Stop: 08/08/18 03:14 Nitroglycerin (Nitrostat) 0.4 mg SL UD PRN PRN Reason: Chest Pain Stop: 08/08/18 04:11 Oxycodone HCl (Roxicodone Immediate Rel) 5 mg PO Q4 PRN PRN Reason: Pain Stop: 07/25/18 13:32 Pantoprazole Sodium (Protonix) 40 mg PO QAM [facility] Stop: 08/08/18 08:59 Last Admin: 07/12/18 08:14 Dose: 40 mg Documented by: Tramadol HCl (Ultram) 50 mg PO Q6H PRN PRN Reason: Pain Stop: 08/08/18 02:53 Warfarin Sodium (Coumadin) 10 mg PO DAILY@1600 [facility] Stop: 08/08/18 15:59 (1) Coronary artery disease Coronary Disease-Associated Artery/Lesion type: [place] artery [place] vs. transplanted heart: [place] heart Associated angina: with stable angina Qualified Code(s): I25.118 - Atherosclerotic heart disease of [place] coronary artery with other forms of angina pectoris
--- NOTE | 2018-07-13 08:28 | Discharge Summary ---
Date of Service July 13, 2018 Admission HPI Per Admitting Provider 52-year-old female followed by Dr. Quiñonez for Family Medicine and Dr. Jackson for Cardiology. History of ischemic heart disease with non-STEMI in 2015, status post PCI with stenting of RCA. History of atrial fibrillation and SVT. Resting in bed this evening around 2230 and noted onset of palpitations associated with midsternal chest pressure. The chest pressure was fairly severe and radiated to her back and neck. She felt somewhat short of breath. No diaphoresis, nausea, vomiting. She tried Valsalva maneuver without improvement of symptoms. Brought to ED. Valsalva maneuver again unsuccessful. Received IV adenosine and converted to normal sinus rhythm. Chest pain gradually subsided after adenosine was administered. Pain-free at time of my assessment. Admission Exam Per Admitting Provider Vital Signs (Past 24 Hours): Last Vital Signs Temp 36.9 C 07/09/18 00:12 Pulse 79 07/09/18 02:18 Resp 18 07/09/18 02:18 BP 143/82 H 07/09/18 02:18 Pulse Ox 97 07/09/18 02:18 Constitutional: WD/WN, vitals as above no acute distress Eyes: PERRL, conjunctivae normal, anicteric sclerae ENMT: external ear and nose normal, oropharynx normal Neck: trachea midline, no thyromegaly Respiratory: normal respiratory effort, lungs clear to auscultation Cardiovascular: Rate/Rhythm: regular rate Heart Sounds: + murmur (I/ sys murmur LSB); no gallop and no cardiac rub Vessels: normal peripheral pulses; no JVD Extremities: normal capillary refill; no calf tenderness and no edema Gastrointestinal (Abdomen): normal bowel sounds, soft, nontender, no hepatosplenomegaly Musculoskeletal: Head/Neck/Chest: neck supple Extremities: strength 5/5 throughout; no cyanosis and no clubbing Skin: no rashes, warm and dry Neurologic: PERRL, EOMI no facial palsy no dysarthria or aphasia patellar DTR's 2/2 bilat Psychiatric: Orientation: alert and oriented x 3 Affect: euthymic affect Lymphatic: no cervical lymphadenopathy Principal Diagnosis SVT-now in sinus rhythm and heart rate is controlled, status post EP study Discharge Exam Constitutional WD/WN, vitals as above no acute distress Eyes PERRL, conjunctivae normal, anicteric sclerae ENMT external ear and nose normal, oropharynx normal Neck trachea midline, no thyromegaly Respiratory normal respiratory effort, lungs clear to auscultation Cardiovascular Rate/Rhythm: regular rate Heart Sounds: + murmur (I/ sys murmur LSB); no gallop and no cardiac rub Vessels: normal peripheral pulses; no JVD Extremities: normal capillary refill; no calf tenderness and no edema Gastrointestinal (Abdomen) normal bowel sounds, soft, nontender, no hepatosplenomegaly Musculoskeletal Head/Neck/Chest: neck supple Extremities: strength 5/5 throughout; no cyanosis and no clubbing Skin no rashes, warm and dry Neurologic PERRL, EOMI, accommodation nl, no face palsy, no dysarthria Psychiatric Orientation: alert and oriented x 3 Affect: euthymic affect Lymphatic no cervical lymphadenopathy Discharge Data Allergies Allergy/AdvReac Type Severity Reaction Status Date / Time Sulfa (Sulfonamide Allergy Severe ANAPHYLAXIS Verified 12/13/14 15:21 Antibiotics) adhesive Allergy Unknown RASH Verified 12/13/14 16:09 Consultations 07/09/18 01:23 ED Decision to Admit Stat 07/09/18 04:12 Consult Cardiology Routine 07/09/18 09:14 Consult Cardiology Routine Procedures Performed Operation Date: 07/11/18 09:00 Actual Procedures p EPS + Ablation +3D Map for VT - Qamar Kelly MD s 3D Mapping (Carto) - Qamar Kelly MD s LA Pacing (Add-On) - Qamar Kelly MD s Ultrasound Vascular Access - Qamar Kelly MD Ordered Studies 07/11/18 11:30 EP Lab Images for PACS ONCE Hospital Course (1) SVT (supraventricular tachycardia): Remains in SR Cardiology consulted Metoprolol 50mg BID We will have the studies today and further management depending on that Status post EP study performed 07/11/18 suggesting para-hisian focus versus left atrial origin of atrial tachycardia Remains in sinus rhythm and rate is controlled No more episode of SVT Will need to have repeat EP studies in [place] if symptoms persist (2) Coronary artery disease: resolved Continue aspirin, metoprolol, statin. Remains stable and denies any chest pain and/or palpitation (3) Paroxysmal a-fib: Continue metoprolol and warfarin. Heart rate is controlled did not have any more arrhythmias Continue increasing dose of beta-jimmy (4) GERD (gastroesophageal reflux disease): Continue PPI. (5) Diabetes mellitus type 2 with complications: Hold metformin and glimepiride during hospital stay. Lantus/NovoLog per protocol. (6) DVT prophylaxis: Anticoagulated on warfarin. (7) Discharge planning issues: Anticipated discharge to home. Family Medicine follow-up with Dr. Quiñonez. Cardiology follow-up with Dr. Jackson. Total Time Total Time Spent Total Time Spent (In Minutes): 35 minutes Total Time Includes: Examination of the Patient, Discharge Planning, Medication Reconciliation and Communication With Other Providers Discharge Plan Discharge Items Patient Disposition: Home - Self-Care Reason For Visit: CHEST PAIN, SVT Discharge Diagnosis: SVT-now in sinus rhythm and heart rate is controlled, status post EP study Condition: Good Discharge Goals: Decrease discomfort, Improve function and Increase independence Activity: Resume your previous activity Non-emergency contact: Primary Care Provider Call non-emergency contact if: you have any medication questions and your symptoms worsen Follow-up/Referrals: Jose Quiñonez [Primary Care Provider] - 07/15/18 10:55 am (Your appointment is with Dr. Misael Jackson. Dr. Horne does not have any opening. Continue to have follow-up with coagulation clinic. Cardiology will call you with appointment.) Diet: Heart Healthy Addtl Provider Instructions: ACTIVITY RECOMMENDATIONS: Excess manipulation of the wrist should be avoided for the next 24-48 hours. * No lifting over 2 pounds (approximately a 1/2 gallon of milk) with the utilized arm for 24 hours. * No strenuous activity such as bowling or tennis for 3 days. * Keep the site of the procedure covered with a bandage for 24 hours. *You may shower the day after the procedure. Do not take a tub bath or submerge the puncture site in water for the next 3 days. *Do not operate any motorized equipment for 3 days. SPECIAL CARE INSTRUCTIONS: The site may be slightly bruised and sore following your procedure. Should any of the following occur, contact the DrElier who performed your procedure. 1. Redness/inflammation, swelling, chills, or fever, or colored drainage at procedure site within 3-7 days after your procedure. 2. Coldness, discoloration, ongoing numbness, severe pain, or swelling. Expect mild tingling of hand and tenderness at the puncture site for up to three days. If this persists beyond three days, or other symptoms develop, notify the Dr. who performed your procedure. BLEEDING: If the procedure site on your wrist begins to bleed, do not panic 1. Place 1 or 2 fingers firmly just slightly above the insertion site to stop the bleeding. You may be able to feel your pulse as you hold pressure. 2. Lift your finger after 5 minutes to see if the bleeding has stopped. 3. Once the bleeding has stopped, gently wipe the wrist area clean with a bandage. * If the bleeding from your wrist does not stop after 10 minutes, or if there is a large amount of bleeding or spurting, call 911 ([address] yourself to the h ospital). SKIN IRRITATION: * You may experience some redness and/or swelling in the area where radiation was administered. If any skin irritation occurs, please contact your family physician. FOLLOW UP VISIT: Keep any scheduled doctor appointments. Prescriptions: New metoprolol tartrate 50 mg Tablet 50 mg PO BID 30 Days Qty: 60 RF: 0 Continued atorvastatin 40 mg Tablet 40 mg PO DAILY RF: 0 metformin 850 mg Tablet 850 mg PO BID RF: 0 tramadol 50 mg Tablet 50 mg PO Q6H PRN (Reason: Pain) RF: 0 glimepiride 2 mg Tablet 2 mg PO QAM RF: 0 warfarin 5 mg Tablet 10 mg PO DAILY RF: 0 Jardiance 25 mg Tablet 25 mg PO DAILY RF: 0 acetaminophen [Tylenol] 325 mg Tablet 650 mg PO TID PRN (Reason: Pain) RF: 0 aspirin [Ecotrin Low Strength] 81 mg Tablet,Delayed Release (Dr/Ec) 81 mg PO DAILY RF: 0 albuterol sulfate [Ventolin HFA] 90 mcg/actuation Hfa Aerosol Inhaler 2 puff INHALATION Q6H PRN (Reason: Wheezing) RF: 0 multivitamin Tablet 1 tab PO DAILY RF: 0 nitroglycerin [Nitrostat] 0.4 mg Tablet, Sublingual 0.4 mg sublingual Q5M PRN (Reason: Chest Pain) RF: 0 omeprazole 20 mg Capsule,Delayed Release(Dr/Ec) 20 mg PO DAILY RF: 0 lisinopril 2.5 mg Tablet 2.5 mg PO DAILY RF: 0 cetirizine [Zyrtec] 10 mg Tablet 10 mg PO HS RF: 0 fluticasone propionate [Flonase Allergy Relief] 50 mcg/actuation [place],Suspension 2 spray INTRANASAL DAILY RF: 0 Discontinued metoprolol tartrate 25 mg tablet See Rx Instructions .ROUTE .COMPLEX RF: 0 Stand-Alone Forms: [facility] Discharge Orders: Discharge Order (Routine); Ordered 07/12/18 Ordered By: Dany Cruz Admission Data Admit Date/Time: 07/11/18 14:51 Attending Provider: Dany Cruz Admit Provider: Kyle Goff Primary Care Provider: Jose Quiñonez Other Providers: Kyle Goff ; Thomas Jackson ; Deuce Clinton ; Alin Matthews Service: Telemetry Other Interventions: Discharge Summary Assessment (RN) Last Done: 07/12/18 12:21 DC Date/Time DO NOT enter until pt leaves facility: 07/12/18 13:36
== END 2018-07-12 13:36 | disposition home or self-care (01) ==
LOC: 2S 00:08 → ED 00:08 → SUATTDRO 01:55 → 2S 02:23

== ENCOUNTER 2019-04-30 23:54 | Observation (INO) ==
--- OUTSIDE RECORDS SUMMARY | 2019-04-30 23:57 | External Medical Summary | Continuity of Care Document ---
:1965 Author Name Kam Sheehan Address Unavailable Unavailable , Care Team Providers Name Role Phone NonMNPG M.DElier Unavailable [email or web address] [email or web address], [email or web address] Unavailable Unavailable Problems Active medical history not documented Allergies and Adverse Reactions Allergy history not documented Medications Medications not documented Procedures Procedures not documented Immunizations Immunizations not documented Plan of Treatment Planned Observations Planned Goals not documented Results No Known Results Results not documented
--- OUTSIDE RECORDS SUMMARY | 2019-04-30 23:57 | External Medical Summary | Continuity of Care Document ---
:1965 Author Name Kam Sheehan Address Unavailable Unavailable , Care Team Providers Name Role Phone NonMNPG M.DElier Unavailable [email or web address] PCP, UNKNOWN Unavailable Unavailable Problems Active medical history not documented Allergies and Adverse Reactions Allergy history not documented Medications Medications not documented Procedures Procedures not documented Immunizations Immunizations not documented Plan of Treatment Planned Observations Planned Goals not documented Results No Known Results Results not documented
[2019-05-01] MEDS ORDERED: ADENOSINE IV SOLN 3 MG/ML 2 ML VIAL IV ONE ×2 (00:09)
[2019-05-01 00:44] LABS: Basophils # (auto) 0.05 K/uL (0-0.2); Basophils % (auto) 0.5 %; Eosinophils # (auto) 0.51 K/uL (0-0.5); Hematocrit (blood only) 43.3 % (37-47); Hemoglobin 14.6 g/dL (12.0-16.0); Immature Granulocytes # (auto) 0.02 K/uL (0.00-0.02); Immature Granulocytes % (auto) 0.2 %; Lymphocytes # (auto) 4.41 K/uL (1.2-3.4); Lymphocytes % (auto) 42.9 %; Mean Corpuscular Hemoglobin 29.3 pg (25-34); Mean Corpuscular Hgb Conc 33.7 g/dL (32-36); Mean Corpuscular Volume 86.8 fL (80-100); Mean Platelet Volume 10.1 fL (7.4-10.4); Monocytes # (auto) 0.55 K/uL (0.11-0.59); Monocytes % (auto) 5.3 %; Neutrophils # (auto) 4.75 K/uL (1.4-6.5); Neutrophils % (auto) 46.1 %; Platelet Count 231 K/uL (130-400); RDW Coefficient of Variation 13.6 % (11.5-14.5); RDW Standard Deviation 43.1 fL (36.4-46.3); Red Blood Count 4.99 M/uL (4.2-5.4); White Blood Count 10.29 K/uL (4.8-10.8)
[2019-05-01 00:50] LABS: Albumin Level 3.9 gm/dl (3.4-5.0); BUN Creatinine Ratio 21.1 (10-20); Blood Urea Nitrogen 18 mg/dl (7-18); Calcium 9.3 mg/dl (8.5-10.1); Carbon Dioxide 27 mmol/L (21-32); Chloride 108 mmol/L (98-107); Creatinine Clr Calc Pharmacy 94.8 ml/min; Est GFR (Non-African American) 77.7; Glucose 155 mg/dl (70-99); Magnesium 1.9 mg/dl (1.8-2.4); Potassium 3.7 mmol/L (3.5-5.1); Sodium 139 mmol/L (136-145)
[2019-05-01 00:55] LABS: Alanine Aminotransferase 59 U/L (12-78); Albumin Globulin Ratio 1.1 (0.9-2); Alkaline Phosphatase 78 U/L (45-117); Aspartate Aminotransferase 33 U/L (15-37); Bilirubin,Total 0.4 mg/dl (0.2-1); Globulin 3.4 gm/dl (2.5-4.0); Total Protein 7.3 gm/dl (6.4-8.2); Troponin I < 0.015 ng/ml (0-0.045)
--- NOTE | 2019-05-01 02:30 | Emergency Department Note ---
Entered by Kylie Lu acting as a scribe for History of Present Illness General Chief complaint: Tachycardia Stated complaint: RACING HEART, SVT? Time Seen by Provider: 05/01/19 00:05 History of Present Illness Provider complaint: tachycardia Onset (ago): minute(s) (55) Radiation: back and extremity (upper) Pain Consistency: + other (episode) Maximum Pain Intensity: 4 Quality: + other (tachycardia) Relieved By: + other (lying flat) Exacerbated By: + movement Associated symptoms: + shortness of breath and + other (feels like pressure in chest, 1 cup of coffee this morning, few hours of diarrhea earlier today) The patient is a 53 year old female who presents to the ED with complaints of an episode of tachycardia that started 55 minutes ago. The patient states that she also feels pressure in her chest that radiates into her back and down her arms. The patient states that she became short of breath secondary to the pain. The patient notes that her pain is resolved by lying flat and exacerbated by movement. The patient notes that she had 1 cup of coffee this morning which her breaker operator said is fine. The patient notes that she also had a few hours of diarrhea earlier today. Home Medications Home Medications Medication Instructions Recorded Confirmed Type Jardiance 25 mg PO DAILY 07/09/18 05/01/19 History acetaminophen [Tylenol] 650 mg PO TID PRN 07/09/18 05/01/19 History albuterol sulfate [Ventolin HFA] 2 puff INHALATION Q6H PRN 07/09/18 05/01/19 History aspirin [Ecotrin Low Strength] 81 mg PO DAILY 07/09/18 05/01/19 History atorvastatin 40 mg PO DAILY 07/09/18 05/01/19 History cetirizine [Zyrtec] 10 mg PO HS 07/09/18 05/01/19 History fluticasone propionate [Flonase 2 spray INTRANASAL DAILY 07/09/18 05/01/19 History Allergy Relief] glimepiride 2 mg PO QAM 07/09/18 05/01/19 History lisinopril 2.5 mg PO DAILY 07/09/18 05/01/19 History metformin 850 mg PO BID 07/09/18 05/01/19 History multivitamin 1 tab PO DAILY 07/09/18 05/01/19 History nitroglycerin [Nitrostat] 0.4 mg SUBLINGUAL Q5M PRN 07/09/18 05/01/19 History omeprazole 20 mg PO DAILY 07/09/18 05/01/19 History tramadol 50 mg PO Q6H PRN 07/09/18 05/01/19 History warfarin 10 mg PO DAILY 07/09/18 05/01/19 History Cinnamon Plus Chromium 2 cap PO DIRECTED 05/01/19 05/01/19 History Cranberry Tablet 300 mg PO DAILY 05/01/19 05/01/19 History albuterol sulfate [ProAir HFA] 2 puff INHALATION QID PRN 05/01/19 05/01/19 History biotin-keratin [Biotin Plus 2 tab PO DAILY 05/01/19 05/01/19 History Keratin] cholecalciferol (vitamin D3) 5,000 unit PO DAILY 05/01/19 05/01/19 History [Vitamin D3] magnesium oxide 500 mg PO DAILY 05/01/19 05/01/19 History metoprolol tartrate 50 mg PO BID 05/01/19 05/01/19 History Allergies Allergy/AdvReac Type Severity Reaction Status Date / Time Sulfa (Sulfonamide Allergy Severe ANAPHYLAXIS Verified 05/01/19 00:28 Antibiotics) adhesive Allergy Unknown RASH Verified 05/01/19 00:28 Past Med/Surg History Medical History Coronary artery disease (Chronic) Diabetes mellitus type 2 with complications (Chronic) GERD (gastroesophageal reflux disease) (Chronic) Paroxysmal a-fib (Chronic 05/04/14) SVT (supraventricular tachycardia) (Chronic) Surgical History History of hysterectomy (Chronic) S/P cholecystectomy (Chronic) Status post coronary artery stent placement (Chronic) Family History Mother Systemic lupus erythematosus Cervical cancer Stroke Tuberculosis Rheumatoid arthritis Father Hypertension Heart disease Diabetes Leukemia Grandmother (Maternal) Tuberculosis Social History Preferred Language: Kyr[place] Communication Ability: Effective Glost Placer Required: No Beliefs That Will Affect Care: None Current Living Situation: Family and Other Current Living Situation Comment: lives with her son and nephew Feels Safe at Home: Yes Smoking Status: Former smoker Hx Alcohol Use: Yes Alcohol type: other Hx Substance Use: No Review of Systems See HPI for pertinent positives & negatives. and A total of 10 systems reviewed and were otherwise negative Physical Exam Vital Signs Vital Signs - 24 hr 04/30/19 23:58 05/01/19 00:05 05/01/19 00:06 Temperature 36.5 C Temperature Source Oral Pulse Rate 173 H 165 H 166 H Pulse Rate from SpO2 Sensor 165 H Pulse Rhythm Regular Regular Pulse Strength Normal Respiratory Rate 20 26 H 19 Respiratory Effort / Characteristics Non-Labored Spontaneous Respiratory Depth Normal Respiratory Pattern Regular Blood Pressure 128/82 112/78 Blood Pressure Mean 97 83 Blood Pressure Position Sitting Pulse Oximetry 94 95 97 Oxygen Delivery Method Room Air Room Air Oxygen Flow Rate Sepsis Recent Fever Within 48 Hours No Sepsis Action Taken by Nursing No Action Required 05/01/19 00:11 05/01/19 00:14 05/01/19 00:15 Temperature Temperature Source Pulse Rate 81 78 Pulse Rate from SpO2 Sensor 81 77 Pulse Rhythm Pulse Strength Respiratory Rate 32 H 16 Respiratory Effort / Characteristics Respiratory Depth Respiratory Pattern Blood Pressure 112/73 107/77 Blood Pressure Mean 78 92 Blood Pressure Position Pulse Oximetry 99 99 Oxygen Delivery Method Nasal Cannula Nasal Cannula Nasal Cannula Oxygen Flow Rate 2 2 2 Sepsis Recent Fever Within 48 Hours Sepsis Action Taken by Nursing 05/01/19 00:27 05/01/19 00:30 05/01/19 00:45 Temperature Temperature Source Pulse Rate 80 88 90 Pulse Rate from SpO2 Sensor 81 86 90 Pulse Rhythm Pulse Strength Respiratory Rate 24 36 H 21 Respiratory Effort / Characteristics Respiratory Depth Respiratory Pattern Blood Pressure 97/73 L 98/71 L 103/74 Blood Pressure Mean 77 80 89 Blood Pressure Position Pulse Oximetry 97 97 97 Oxygen Delivery Method Oxygen Flow Rate Sepsis Recent Fever Within 48 Hours Sepsis Action Taken by Nursing 05/01/19 01:00 05/01/19 01:15 05/01/19 01:30 Temperature Temperature Source Pulse Rate 79 75 84 Pulse Rate from SpO2 Sensor 78 77 83 Pulse Rhythm Pulse Strength Respiratory Rate 16 24 19 Respiratory Effort / Characteristics Respiratory Depth Respiratory Pattern Blood Pressure 110/70 107/72 102/72 Blood Pressure Mean 86 79 79 Blood Pressure Position Pulse Oximetry 95 97 95 Oxygen Delivery Method Oxygen Flow Rate Sepsis Recent Fever Within 48 Hours Sepsis Action Taken by Nursing 05/01/19 01:45 05/01/19 02:00 Temperature Temperature Source Pulse Rate 81 79 Pulse Rate from SpO2 Sensor 81 78 Pulse Rhythm Pulse Strength Respiratory Rate 20 24 Respiratory Effort / Characteristics Respiratory Depth Respiratory Pattern Blood Pressure 103/70 128/78 Blood Pressure Mean 79 83 Blood Pressure Position Pulse Oximetry 96 96 Oxygen Delivery Method Oxygen Flow Rate Sepsis Recent Fever Within 48 Hours Sepsis Action Taken by Nursing Constitutional: Vital signs reviewed. Eyes: Pupils are equal round reactive to light. Conjunctiva are noninjected. ENT: Pharynx is clear without erythema or exudate. Mucous membranes are moist. Neck supple without meningeal signs. Respiratory: Clear to auscultation bilaterally. Breath sounds are equal bilaterally. Cardiovascular: Tachycardic rate of 167 and rhythm. No rubs or gallops. GI: Soft, nondistended and nontender. Bowel sounds are present. Musculoskeletal: No peripheral edema. No lower extremity tenderness. Integumentary: No cyanosis. Neurological: The patient is awake and alert. No focal deficits. Psychiatric: Normal affect. Course Course 0006: Past medical records reviewed. The patient was evaluated in room A04B. A complete history and physical exam was performed. 0049: I reevaluated the patient and her heart rate is in the 80s. She is asymptomatic at this time. 0107: I discussed the patient's case with Sirisha Wray. He will evaluate the patient for further management. Consultations Consultation #1: I discussed the patient's case with Sirisha Wray. He will evaluate the patient for further management. Time: 01:07 Administered Medications Discontinued Medications Adenosine (Adenosine) Confirm Administered Dose 6 mg IV .STK-MED ONE Stop: 05/01/19 00:10 Last Admin: 05/01/19 00:12 Dose: 6 mg Documented by: [id number] Adenosine (Adenosine) Confirm Administered Dose 12 mg IV .STK-MED ONE Stop: 05/01/19 00:10 Last Admin: 05/01/19 00:22 Dose: Not Given Documented by: [id number] Critical Care Time Critical Care Time: Yes Total Critical Care Time: 35 I have personally spent approximately 35 minutes of critical care time in the direct management of this patient. This includes bedside care, interpretation of diagnostic studies, and testing, discussion with consultants, patient, and family members, and other required patient management activities. This 35 minutes is in excess of all separately billable procedures. Medical Decision Making Differential Diagnosis Differential diagnosis include SVT, Afib with RVR, WPW, unstable angina, MT. Medical Records Attestation: I reviewed the patient's medical records. Patient was admitted in July of last year for SVT and chest pain. Home Medications Current Medication List: was personally reviewed by me Laboratory Data Attestation: I reviewed the patient's lab results. Result diagrams: 05/01/19 00:05 05/01/19 00:05 Lab Results 05/01/19 05/01/19 Range/Units 00:05 00:05 WBC 10.29 (4.8-10.8) K/uL RBC 4.99 (4.2-5.4) M/uL Hgb 14.6 (12.0-16.0) g/dL Hct 43.3 (37-47) % MCV 86.8 (80-100) fL MCH 29.3 (25-34) pg MCHC 33.7 (32-36) g/dL RDW Std Deviation 43.1 (36.4-46.3) fL RDW Coeff of Felicitas 13.6 (11.5-14.5) % Plt Count 231 (130-400) K/uL MPV 10.1 (7.4-10.4) fL Immature Gran % (Auto) 0.2 % Neut % (Auto) 46.1 % Lymph % (Auto) 42.9 % [place] % (Auto) 5.3 % Eos % (Auto) 5.0 % Baso % (Auto) 0.5 % Immature Gran # (Auto) 0.02 (0.00-0.02) K/uL Neut # (Auto) 4.75 (1.4-6.5) K/uL Lymph # (Auto) 4.41 H (1.2-3.4) K/uL [place] # (Auto) 0.55 (0.11-0.59) K/uL Eos # (Auto) 0.51 H (0-0.5) K/uL Baso # (Auto) 0.05 (0-0.2) K/uL Sodium 139 (136-145) mmol/L Potassium 3.7 (3.5-5.1) mmol/L Chloride 108 H (98-107) mmol/L Carbon Dioxide 27 (21-32) mmol/L Anion Gap 4.0 (3-11) BUN 18 (7-18) mg/dl Creatinine 0.85 (0.6-1.2) mg/dl Est Cr Clr Drug Dosing 94.8 ml/min Est GFR ( Amer) 90.0 Est GFR (Non-Af Amer) 77.7 BUN/Creatinine Ratio 21.1 H (10-20) Glucose 155 H (70-99) mg/dl Calcium 9.3 (8.5-10.1) mg/dl Magnesium 1.9 (1.8-2.4) mg/dl Total Bilirubin 0.4 (0.2-1) mg/dl AST 33 (15-37) U/L ALT 59 (12-78) U/L Alkaline Phosphatase 78 (45-117) U/L Troponin I < 0.015 (0-0.045) ng/ml Total Protein 7.3 (6.4-8.2) gm/dl Albumin 3.9 (3.4-5.0) gm/dl Globulin 3.4 (2.5-4.0) gm/dl Albumin/Globulin Ratio 1.1 (0.9-2) Imaging Data Attestation: I personally reviewed and interpreted this imaging study as fo llows: My Impression: No cardiopulmonary process, no pneumonia, no effusion. ECG Data Attestation: I personally reviewed and interpreted this ECG as follows: Indication: + tachycardia Rate (beats per minute): 167 Rhythm: + SVT ECG ST segments: + ST depression (laterally) ECG Findings: + Other (QRS 96 milliseconds); no PVCs Additional Comments: SECOND EKG: Rate: 81 Rhythm: Normal sinus rhythm Findings: No ST depression, no ST elevation, no PVC, QRS 92 milliseconds. Blood Pressure Blood Pressure Findings: Normal blood pressure Blood Pressure Disposition: did not require urgent referral MDM Narrative I did evaluate the patient as noted above. The patient is presenting with ta chycardia with chest discomfort which is worse with exertion. When she is at rest she does not have any chest discomfort. Does have a prior history of RCA cardiac stent. She also has a prior history of SVT. IV access was established. The patient was placed on a continuous nurse monitoring. I did order and personally review the patient's 12-lead EKG as described above. The patient has SVT with ST changes as described above. I did perform carotid massage and Valsalva maneuvers. She did have brief resolution of her symptoms with her heart rate coming down to about 100 but then back up to 167. I therefore recommended treatment with medications. She was given a stat bolus of adenosine 6 mg IV. Her heart rate came down to the 80s and she felt much better. I did repeat a twelve-lead EKG which per my interpretation demonstrates no ST T wave changes or acute ischemia. She is in normal sinus rhythm. I did order and personally reviewed the images of the patient's chest x-ray as described above. There is no acute cardiopulmonary process per my interpretation. I did order and review the patient's blood work as noted in the electronic medical record. Electrolytes are unremarkable. CBC is unremarkable. Troponin is negative. I did reassess the patient. She continues to have a heart rate in the 80s and no chest discomfort. I did discuss the test results with her. I did recommend hospitalization for further care and evaluation. I did discuss the case with the hospitalist and case finisher. Impression & Plan SVT (supraventricular tachycardia), Acute chest pain Discharge Plan Visit Data Chief Complaint: Tachycardia Stated Complaint: RACING HEART, SVT? ED Provider: Thomas Cruz Discharge Problem: SVT (supraventricular tachycardia), Acute chest pain Patient Disposition: Being Evaluated by Hospitalist Forms Stand Alone Forms: My [facility] Prescriptions Prescriptions: No Action atorvastatin 40 mg Tablet 40 mg PO DAILY RF: 0 metformin 850 mg Tablet 850 mg PO BID RF: 0 tramadol 50 mg Tablet 50 mg PO Q6H PRN (Reason: Pain) RF: 0 glimepiride 2 mg Tablet 2 mg PO QAM RF: 0 warfarin 5 mg Tablet 10 mg PO DAILY RF: 0 Jardiance 25 mg Tablet 25 mg PO DAILY RF: 0 acetaminophen [Tylenol] 325 mg Tablet 650 mg PO TID PRN (Reason: Pain) RF: 0 aspirin [Ecotrin Low Strength] 81 mg Tablet,Delayed Release (Dr/Ec) 81 mg PO DAILY RF: 0 albuterol sulfate [Ventolin HFA] 90 mcg/actuation Hfa Aerosol Inhaler 2 puff INHALATION Q6H PRN (Reason: Wheezing) RF: 0 multivitamin Tablet 1 tab PO DAILY RF: 0 nitroglycerin [Nitrostat] 0.4 mg Tablet, Sublingual 0.4 mg sublingual Q5M PRN (Reason: Chest Pain) RF: 0 omeprazole 20 mg Capsule,Delayed Release(Dr/Ec) 20 mg PO DAILY RF: 0 lisinopril 2.5 mg Tablet 2.5 mg PO DAILY RF: 0 cetirizine [Zyrtec] 10 mg Tablet 10 mg PO HS RF: 0 fluticasone propionate [Flonase Allergy Relief] 50 mcg/actuation [place],Suspension 2 spray INTRANASAL DAILY RF: 0 metoprolol tartrate 50 mg Tablet 50 mg PO BID RF: 0 magnesium oxide 500 mg Tablet 500 mg PO DAILY RF: 0 albuterol sulfate [ProAir HFA] 90 mcg/actuation Hfa Aerosol Inhaler 2 puff INHALATION QID PRN (Reason: sob) RF: 0 Cinnamon Plus Chromium 2 cap PO DIRECTED RF: 0 Cranberry Tablet 300 mg PO DAILY RF: 0 Biotin Plus Keratin 10,000-100 mcg-mg Tablet 2 tab PO DAILY RF: 0 cholecalciferol (vitamin D3) [Vitamin D3] 2,000 unit Tablet 5,000 unit PO DAILY RF: 0 Referrals Referrals: Jose Quiñonez MD [Primary Care Provider] - The scribe's documentation has been prepared under my direction and personally reviewed by me in its entirety. I confirm that the note above accurately reflects all work, treatment, procedures, and medical decision making performed by me.
[2019-05-01] MEDS ORDERED: POLYETHYLENE (MIRALAX) 17 GM PACK PO PRN (03:48)
[2019-05-01] MEDS ORDERED: ACETAMINOPHEN 325 MG TAB PO PRN (03:48)
[2019-05-01] MEDS ORDERED: TRAMADOL HCL 50 MG TABLET PO PRN (03:48)
[2019-05-01] MEDS ORDERED: METOPROLOL TARTRATE 1 MG/ML VIAL IV PRN (03:48)
[2019-05-01] MEDS ORDERED: NITROGLYCERIN SL 0.4 MG/TAB TAB SL PRN ×2 (03:48)
[2019-05-01] MEDS ORDERED: ONDANSETRON INJ 2 MG/ML 2 ML VIAL IV PRN (03:48)
[2019-05-01] MEDS ORDERED: ALBUTEROL HFA 8 GM INHALER INH PRN (04:09)
[2019-05-01 04:39] LABS: INR 1.9 (0.9-1.1); Prothrombin Time 18.3 Seconds (9.0-12.0)
--- NOTE | 2019-05-01 05:44 | History and Physical Report ---
DATE OF ADMISSION: 05/01/2019 CHIEF COMPLAINT: Palpitations and chest pain. HISTORY OF PRESENT ILLNESS: This is a 53-year-old female with past medical history significant for ischemic heart disease, non-ST elevated [place] in 2015, status post stenting of RCA, history of atrial fibrillation and SVT, on Coumadin, history of type 2 diabetes, major depression, generalized osteoarthritis, history of tobacco abuse, presents with palpitations. The patient since last 2 days, she is not feeling well, not sleeping well. She felt some short of breath. She uses her home inhaler today morning. . On going to sleep tonight she had a cough and then suddenly felt her heart racing fast and also some chest discomfort. She tried to do some Valsalva maneuver which did not help and she came here and she was found to be in SVT, given adenosine and she converted back into sinus rhythm. Currently, her symptoms resolved. She is resting comfortably and hemodynamically stable, in normal sinus rhythm. Currently, denies any chest pain or shortness of breath. No cough, no fever, no chills, no sweating. She had headache earlier, but that has resolved now. No blurred visions. No earache, no runny nose, no sore throat. Appetite is okay. No abdominal pain. Normal bowel and bladder movements. No hematuria or burning micturition, no blood in the stools. No swelling in the legs. ALLERGIES: LATEX, SULFA ANTIBIOTICS. PAST MEDICAL HISTORY: As mentioned above. PAST SURGICAL HISTORY: Abdominal wall hernia repair, ligation of oviduct, right coronary artery stent placement, cholecystectomy, total abdominal hysterectomy with removal of the tubes. MEDICATIONS: The patient is on Lipitor 40 mg p.o. daily, Jardiance 25 mg p.o. daily, metformin 850 mg p.o. b.i.d., omeprazole 20 mg p.o. daily, tramadol 50 mg p.o. q. 6 hours p.r.n., lisinopril 2.5 mg p.o. daily, Lopressor 50 mg p.o. b.i.d., Coumadin 10 mg p.o. daily, glimepiride 2 mg p.o. daily, magnesium 500 mg p.o. daily, vitamin D 5000 units p.o. daily, cetirizine 10 mg p.o. daily, albuterol 2 puffs every 4 hours p.r.n., Flonase 2 sprays into each nostril daily, aspirin 81 mg p.o. daily, Nitrostat 0.4 mg sublingual p.r.n., multivitamins 1 tablet daily, Tylenol 650 mg p.o. t.i.d. p.r.n. FAMILY HISTORY: Significant for mother has rheumatoid arthritis, systemic lupus, cervical cancer, TB as a young adult and TIA's Father has diabetes, heart disorder, hypertension, leukemia, paternal grandmother of TB. SOCIAL HISTORY: Currently single, former smoker, quit in 2010. Alcohol occasional. No drug use. REVIEW OF SYMPTOMS: As per HPI. Rest of review of symptoms negative. PHYSICAL EXAMINATION: GENERAL: The patient is of moderate build, not in acute distress. VITAL SIGNS: Temperature 36.5, pulse 79, respiratory rate 24, blood pressure 128/78, oxygen 96% on 2 liters. HEENT: No pallor, no icterus. Pupils equal, round, reactive to light. NECK: No JVD, no neck masses, no carotid bruits. CARDIOVASCULAR: S1, S2 heard, regular rate and rhythm, no murmur, no gallop. RESPIRATORY SYSTEM: Normal AP diameter. No accessory muscle use. No wheezing, no crackles. ABDOMEN: Soft, bowel sounds present. Nontender. No distention. CENTRAL NERVOUS SYSTEM: Cranial nerves II-XII grossly intact. Nonfocal. EXTREMITIES: No edema, no erythema. LABORATORY DATA: WBC 10.9, hemoglobin 14.6, hematocrit 43.3, platelets 231. Sodium 139, potassium 3.7, chloride 108, bicarbonate 27, BUN 18, creatinine 0.8, serum glucose 155, calcium 9.3, magnesium 1.9, total bilirubin 0.4, AST 33, ALT 59, alkaline phosphatase 78, troponin I less than 0.015. Chest x-ray: No acute findings seen. EKGs, SVT at a rate of 167. ST changes in lateral inferior leads. On repeat EKG, she has normal sinus rhythm with rate of 81, ST changes improved. ASSESSMENT AND PLAN: This is a 53-year-old female who presents with supraventricular tachycardia and chest pain. 1. Supraventricular tachycardia, history of supraventricular tachycardia in the past, history of paroxysmal atrial fibrillation on Coumadin, on Lopressor 50 b.i.d. Given adenosine in the ER, currently in sinus rhythm. We will monitor in tele floor. We will continue her home Lopressor. Place on IV Lopressor p.r.n. Serial cardiac enzymes and echocardiogram, consult Cardiology a.m. for further recommendation, will keep her n.p.o. 2. Chest pain from above. Follow cardiac enzymes, echocardiogram. Await Cardiology input. 3. Diabetes. Hold her home p.o. medication of glimepiride, metformin and Jardiance, will be placed on Lantus 5 units b.i.d. and insulin sliding scale. Currently the patient is n.p.o.Follow hba1c levels. 4. History of hypertension. Continue lisinopril, Lopressor. Monitor the blood pressure. 5. Gastroesophageal reflux disease. Continue PPI. 6. Hyperlipidemia: Continue statin. 7. Deep venous thrombosis prophylaxis: On Coumadin. We will follow the INR. DISPOSITION: Observation in tele floor. Expect to discharge home and follow with family doctor. Level 1 full code. MTDD
[2019-05-01 06:10] LABS: Estimated Average Glucose 137 mg/dl; Hemoglobin A1C 6.4 % (4.5-5.6)
--- NOTE | 2019-05-01 08:02 | XRay Report ---
XR chest 1V portable HISTORY: Atypical Chest Pain COMPARISON: Chest 07/09/2018. FINDINGS: The heart remains borderline enlarged. The lungs are clear. No pleural effusions. No pneumo thorax. IMPRESSION: No significant change compared to the prior study. No acute process. ACT 112: Negative or not required by law. Electronically signed by: Italo Kilgore M.D. 05/01/2019 8:01 AM
[2019-05-01 08:30] LABS: Magnesium 1.9 mg/dl (1.8-2.4); Troponin I 0.02 ng/ml (0-0.045)
[2019-05-01] MEDS: INSULIN ASPART 100 UNITS/ML 3 ML PEN SC SCH ×3 (08:34→16:42)
[2019-05-01] MEDS ORDERED: MAGNESIUM OXIDE 400 MG TAB PO SCH (09:00)
[2019-05-01] MEDS ORDERED: INSULIN GLARGINE SOLOSTAR 100 UNITS/ML 3 ML PEN SC SCH (09:00)
[2019-05-01] MEDS ORDERED: ATORVASTATIN 40 MG TAB PO SCH (09:00)
[2019-05-01] MEDS ORDERED: ASPIRIN 81 MG ECTAB PO SCH (09:00)
[2019-05-01] MEDS ORDERED: CHOLECALCIFEROL 1,000 UNITS 25 MCG TAB PO SCH (09:00)
[2019-05-01] MEDS ORDERED: METOPROLOL TARTRATE 50 MG TAB PO SCH (09:00)
[2019-05-01] MEDS ORDERED: MULTIVITAMIN TAB PO SCH (09:00)
[2019-05-01] MEDS ORDERED: PANTOprazole 40 MG TAB PO SCH (09:00)
[2019-05-01] MEDS ORDERED: FLUTICASONE PROPIONATE NA SPR 16 GM BTL SCH (09:00)
[2019-05-01] MEDS ORDERED: METOPROLOL TARTRATE 25 MG TAB PO ONE (09:46)
--- NOTE | 2019-05-01 10:26 | Cardiac Catheterization ---
Cardiac Cath Procedure: Brief Procedure Date May 01, 2019 Pre-Procedure Diagnosis Pre-Procedure Diagnosis: Angina AUC Score AUC Score: 8 Post-Procedure Diagnosis Post-Procedure Diagnosis: Severe CAD (Single-vessel disease, mid LAD) Procedure(s) Performed Procedure(s) Performed: Coronary Angiography and Left Heart Cath Ancillary Services Manager Therapy Armando Felix MD Research Compliance Specialist(s) Santana Payton Estimated Blood Loss Estimated Blood Loss: <15cc Medication(s) Medication(s): Fentanyl (12.5 mcg IV), Heparin (5000 units IV), Lidocaine 1% (Local infiltration access site), Nicardipine (250 mcg intra-arterial after arterial sheath insertion) and Versed (1 mg IV) Preliminary Findings Right dominant coronary anatomy Single-vessel obstructive disease with 90% or greater mid LAD stenosis. Left main: Normal length and caliber and free of disease Left anterior descending: Type II in distribution. It gives rise to 2 tiny diagonal branches and a septal branch in its proximal third, moderate-sized diagonal branch in its midportion. Within the left anterior setting there is an extensive area of stenting in its proximal vessel. Stent is widely patent. Just beyond the distal end of the stent however there is a discrete 95% stenosis. Ramus intermedius trivial vessel Left circumflex: Modest caliber vessel with 2 small right ventricular branches and a large posterior lateral branch Right coronary artery: Dominant vessel but modest in caliber. It gives rise to a conus branch at its origin a right ventricular branch in its midportion. At the AV groove it gives rise to a long posterior descending artery and along the AV groove a trivial posterior ventricular branch. This vessel does supply the AV leti artery. Within the right coronary artery there is a 40% stenosis just proximal to the AV groove LV angiography: Not performed, LVEDP 18 Recommendations Recommendations: PCI without planned CABG Specimens Specimens: None Fluids (cc crystalloids) Fluids (cc crystalloids): 66 Anesthesia Start time: 951, stop time: 1017 Procedural Complication(s) None Disposition Recovery Room\PACU
--- NOTE | 2019-05-01 11:30 | Cardiology Consultation ---
Date of Consultation May 01, 2019 Assessment & Plan (1) SVT (supraventricular tachycardia): Symptomatic recurrences of the left-sided likely pathway. No signs to suggest acute ischemia on current despite chest pressure pain. Plan: Increase metoprolol with additional 25 mg today. Supplement potassium. Echocardiogram will be reviewed given low voltages QRS on EKG and assess wall motion. We will begin arrangements for ablation with likely discharge later today and outpatient appointment depend on results of studies (2) Acute chest pain: EKG last evening post cardioversion and this morning without acute ischemic changes troponins negative. Echo cardiogram pending (3) Status post coronary artery stent placement: Single-vessel disease 2014 (4) Diabetes mellitus type 2 with complications: (5) Paroxysmal a-fib: History of Present Illness Reason for Consultation: Supraventricular tachycardia Requesting Physician: Dr Hart Attending Physician: Cady Hart MD History of Present Illness Patient is a 53-year-old female with ongoing issues 1. Paroxysmal supraventricular tachycardia, left-sided 2. Possible past paroxysmal atrial fibrillation 3. Atherosclerotic coronary disease status post right coronary stent 2014 4. Diabetes mellitus Patient is referred now after presenting last evening with sensation of tachypalpitations and chest pressure rating to both shoulders. This is recurrence of similar events in the past EKG in the emergency room demonstrated supraventricular tachycardia with rapid response rates 1 50-1 70. Patient responded to IV adenosine with conversion to sinus rhythm. There are no acute ST segment changes to suggest ischemia on postconversion EKG. Initial troponins are negative x2. Patient feels well this morning however telemetry reveals recurrence of transient runs of atrial tachycardia earlier today. Patient underwent electrophysiology study in July 2018 with accessory pathway unable to be mapped due to left-sided lesion. Patient notes recent difficulties with sinus infections and upper respiratory infections. Has been using Cloricidin HBP but no other stimulants or decongestants. Notes no exertional symptoms. Notes no fevers or chills. Appetite and weight have been generally stable with only fair appetite with recent illness. Notes no bleeding difficulties melena medication dysuria hematuria patient's been appropriately anticoagulated. Allergies Allergy/AdvReac Type Severity Reaction Status Date / Time Sulfa (Sulfonamide Allergy Severe ANAPHYLAXIS Verified 05/01/19 00:28 Antibiotics) adhesive Allergy Unknown RASH Verified 05/01/19 00:28 Home Medications Home Medications Medication Instructions Recorded Confirmed Type Jardiance 25 mg PO DAILY 07/09/18 05/01/19 History acetaminophen [Tylenol] 650 mg PO TID PRN 07/09/18 05/01/19 History albuterol sulfate [Ventolin HFA] 2 puff INHALATION Q6H PRN 07/09/18 05/01/19 History aspirin [Ecotrin Low Strength] 81 mg PO DAILY 07/09/18 05/01/19 History atorvastatin 40 mg PO DAILY 07/09/18 05/01/19 History cetirizine [Zyrtec] 10 mg PO HS 07/09/18 05/01/19 History fluticasone propionate [Flonase 2 spray INTRANASAL DAILY 07/09/18 05/01/19 History Allergy Relief] glimepiride 2 mg PO QAM 07/09/18 05/01/19 History lisinopril 2.5 mg PO DAILY 07/09/18 05/01/19 History metformin 850 mg PO BID 07/09/18 05/01/19 History multivitamin 1 tab PO DAILY 07/09/18 05/01/19 History nitroglycerin [Nitrostat] 0.4 mg SUBLINGUAL Q5M PRN 07/09/18 05/01/19 History omeprazole 20 mg PO DAILY 07/09/18 05/01/19 History tramadol 50 mg PO Q6H PRN 07/09/18 05/01/19 History warfarin 10 mg PO DAILY 07/09/18 05/01/19 History Cinnamon Plus Chromium 2 cap PO DIRECTED 05/01/19 05/01/19 History Cranberry Tablet 300 mg PO DAILY 05/01/19 05/01/19 History albuterol sulfate [ProAir HFA] 2 puff INHALATION QID PRN 05/01/19 05/01/19 History biotin-keratin [Biotin Plus 2 tab PO DAILY 05/01/19 05/01/19 History Keratin] cholecalciferol (vitamin D3) 5,000 unit PO DAILY 05/01/19 05/01/19 History [Vitamin D3] magnesium oxide 500 mg PO DAILY 05/01/19 05/01/19 History metoprolol tartrate 50 mg PO BID 05/01/19 05/01/19 History Patient History Medical History Coronary artery disease (Chronic) Diabetes mellitus type 2 with complications (Chronic) GERD (gastroesophageal reflux disease) (Chronic) Paroxysmal a-fib (Chronic 05/04/14) SVT (supraventricular tachycardia) (Chronic) Surgical History History of hysterectomy (Chronic) S/P cholecystectomy (Chronic) Status post coronary artery stent placement (Chronic) Family History Mother Systemic lupus erythematosus Cervical cancer Stroke Tuberculosis Rheumatoid arthritis Father Hypertension Heart disease Diabetes Leukemia Grandmother (Maternal) Tuberculosis Social History Preferred Language: Finnish Communication Ability: Effective Legal Activity Adjudicator Required: No Beliefs That Will Affect Care: None Current Living Situation: Family Current Living Situation Comment: lives with her son and nephew Other Information That Helps Us Care for You: No Feels Safe at Home: Yes Safety Concerns: Feels Safe At This Time Smoking Status: Former smoker Smoking End Date: 2010 ; Second Hand Exposure: No ; Tobacco Cessation Education Requested by Patient: No Hx Alcohol Use: No Hx Substance Use: No Review of Systems Review of Systems: All systems reviewed & are unremarkable except as noted in HPI & below Results & Data Vital Signs (Past 12 Hours) Vital Signs Temp Pulse Pulse Resp BP BP Pulse Ox 05/01/19 10:49 37.1 C 58 L 18 109/75 95 05/01/19 06:56 36.8 C 74 16 112/74 97 05/01/19 03:55 36.6 C 69 22 113/75 97 05/01/19 03:30 76 18 114/65 94 05/01/19 03:15 76 19 113/70 94 05/01/19 03:00 75 18 124/70 93 05/01/19 02:45 71 20 118/70 95 05/01/19 02:30 76 25 H 115/75 97 05/01/19 02:15 75 22 123/81 95 05/01/19 02:00 79 24 128/78 96 05/01/19 01:45 81 20 103/70 96 05/01/19 01:30 84 19 102/72 95 05/01/19 01:15 75 24 107/72 97 05/01/19 01:00 79 16 110/70 95 05/01/19 00:45 90 21 103/74 97 05/01/19 00:30 88 36 H 98/71 L 97 05/01/19 00:27 80 24 97/73 L 97 05/01/19 00:15 78 16 107/77 99 05/01/19 00:14 81 32 H 112/73 99 05/01/19 00:06 166 H 19 97 05/01/19 00:05 165 H 26 H 112/78 95 04/30/19 23:58 36.5 C 173 H 20 128/82 94 Laboratory Results - last 24 hr 05/01/19 05/01/19 05/01/19 00:05 00:05 04:11 WBC 10.29 RBC 4.99 Hgb 14.6 Hct 43.3 MCV 86.8 MCH 29.3 MCHC 33.7 RDW Std Deviation 43.1 RDW Coeff of Felicitas 13.6 Plt Count 231 MPV 10.1 Immature Gran % (Auto) 0.2 Neut % (Auto) 46.1 Lymph % (Auto) 42.9 [place] % (Auto) 5.3 Eos % (Auto) 5.0 Baso % (Auto) 0.5 Immature Gran # (Auto) 0.02 Neut # (Auto) 4.75 Lymph # (Auto) 4.41 H [place] # (Auto) 0.55 Eos # (Auto) 0.51 H Baso # (Auto) 0.05 PT INR Sodium 139 Potassium 3.7 Chloride 108 H Carbon Dioxide 27 Anion Gap 4.0 BUN 18 Creatinine 0.85 Est Cr Clr Drug Dosing 94.8 Est GFR ( Amer) 90.0 Est GFR (Non-Af Amer) 77.7 BUN/Creatinine Ratio 21.1 H Glucose 155 H POC Glucose Estimat Average Glucose 137 Hemoglobin A1c 6.4 H Calcium 9.3 Magnesium 1.9 Total Bilirubin 0.4 AST 33 ALT 59 Alkaline Phosphatase 78 Troponin I < 0.015 Total Protein 7.3 Albumin 3.9 Globulin 3.4 Albumin/Globulin Ratio 1.1 Hepatitis C Ab Screen 05/01/19 05/01/19 05/01/19 04:11 04:11 07:18 WBC RBC Hgb Hct MCV MCH MCHC RDW Std Deviation RDW Coeff of Felicitas Plt Count MPV Immature Gran % (Auto) Neut % (Auto) Lymph % (Auto) [place] % (Auto) Eos % (Auto) Baso % (Auto) Immature Gran # (Auto) Neut # (Auto) Lymph # (Auto) [place] # (Auto) Eos # (Auto) Baso # (Auto) PT 18.3 H INR 1.9 H Sodium Potassium Chloride Carbon Dioxide Anion Gap BUN Creatinine Est Cr Clr Drug Dosing Est GFR ( Amer) Est GFR (Non-Af Amer) BUN/Creatinine Ratio Glucose POC Glucose 126 H Estimat Average Glucose Hemoglobin A1c Calcium Magnesium Total Bilirubin AST ALT Alkaline Phosphatase Troponin I < 0.015 Total Protein Albumin Globulin Albumin/Globulin Ratio Hepatitis C Ab Screen 05/01/19 05/01/19 05/01/19 07:32 07:32 07:32 WBC RBC Hgb Hct MCV MCH MCHC RDW Std Deviation RDW Coeff of Felicitas Plt Count MPV Immature Gran % (Auto) Neut % (Auto) Lymph % (Auto) [place] % (Auto) Eos % (Auto) Baso % (Auto) Immature Gran # (Auto) Neut # (Auto) Lymph # (Auto) [place] # (Auto) Eos # (Auto) Baso # (Auto) PT INR Sodium Potassium Chloride Carbon Dioxide Anion Gap BUN Creatinine Est Cr Clr Drug Dosing Est GFR ( Amer) Est GFR (Non-Af Amer) BUN/Creatinine Ratio Glucose POC Glucose Estimat Average Glucose Hemoglobin A1c Calcium Magnesium Cancelled 1.9 Total Bilirubin AST ALT Alkaline Phosphatase Troponin I 0.020 Total Protein Albumin Globulin Albumin/Globulin Ratio Hepatitis C Ab Screen Neg 05/01/19 05/01/19 10:52 11:38 WBC RBC Hgb Hct MCV MCH MCHC RDW Std Deviation RDW Coeff of Felicitas Plt Count MPV Immature Gran % (Auto) Neut % (Auto) Lymph % (Auto) [place] % (Auto) Eos % (Auto) Baso % (Auto) Immature Gran # (Auto) Neut # (Auto) Lymph # (Auto) [place] # (Auto) Eos # (Auto) Baso # (Auto) PT INR Sodium Potassium Chloride Carbon Dioxide Anion Gap BUN Creatinine Est Cr Clr Drug Dosing Est GFR ( Amer) Est GFR (Non-Af Amer) BUN/Creatinine Ratio Glucose POC Glucose 110 H Estimat Average Glucose Hemoglobin A1c Calcium Magnesium Total Bilirubin AST ALT Alkaline Phosphatase Troponin I Pending Total Protein Albumin Globulin Albumin/Globulin Ratio Hepatitis C Ab Screen
--- NOTE | 2019-05-01 15:46 | Hospitalist Progress Note ---
Date of Service May 01, 2019 Assessment & Plan (1) SVT (supraventricular tachycardia): admitted with symptomatic tachycardia : SOB , Palpitation , dizzy spell found to be in SVT in ER was given Adenosine , later Lopressor IV HR improved , remains rate controlled appreciate input from Cardiology : Beta jimmy dose increased /added PO potassium 10meq daily per cardiology recommendation stable to be discharged home today , out pt follow up scheduled with EP traffic officer at [facility] for Ablation therapy Echo 05/01/2019: Left ventricle is normal in size. There is mild concentric left ventricular hypertrophy. Left ventricular wall motion is normal. Left ventricular systolic function is normal. Ejection fraction 60-65% There is no significant valvular disease. (2) Status post coronary artery stent placement: no evidence of ACS brief episode of chest heaviness /SOB due to SVT , resolved after HR control ECHO as above cont out previous cardiac meds (3) Diabetes mellitus type 2 with complications: resume out pt meds (4) Anticoagulated on Coumadin: INR theraputic (5) Paroxysmal a-fib: presented with SVT cont on Beta jimmy on Coumadin for chronic anticoagulation DISPOSITION : stable to be discharged home today Subjective no complain of palpitation or dizzy spell no chest pain or SOB feels fine HR remain rate controlled sinus evaluated by Cardiology , beta jimmy dose adjusted stable to be discharged home today , scheduled for EP cardiology follow up at [facility] on 05/12/2019 for Ablation tx Review of Systems Respiratory: no cough and no dyspnea on exertion Cardiovascular: no chest pain, no orthopnea, no palpitations, no lightheadedness and no syncope Physical Exam Constitutional: WD/WN, vitals as above no acute distress Eyes: PERRL, conjunctivae normal, anicteric sclerae ENMT: external ear and nose normal, oropharynx normal Neck: trachea midline, no thyromegaly Respiratory: normal respiratory effort, lungs clear to auscultation Gastrointestinal (Abdomen): normal bowel sounds, soft, nontender, no hepatosplenomegaly Musculoskeletal: no cyanosis or clubbing, extremities motor strength 5/5 Skin: no rashes, warm and dry Neurologic: PERRL, EOMI, accommodation nl, no face palsy, no dysarthria Psychiatric: A+Ox3, euthymic affect Results & Data Vital Signs (Past 12 Hours) Vital Signs Temp Pulse Resp BP Pulse Ox 01/23/20 10:49 37.1 C 58 L 18 109/75 95 05/01/19 06:56 36.8 C 74 16 112/74 97 05/01/19 03:55 36.6 C 69 22 113/75 97
[2019-05-01] MEDS ORDERED: WARFARIN SOD 10 MG TAB PO SCH (16:00)
--- NOTE | 2019-05-01 16:07 | Cardiology Progress Note ---
Date of Service May 01, 2019 Assessment & Plan (1) SVT (supraventricular tachycardia): Symptomatic recurrences of the left-sided likely pathway. No signs to suggest acute ischemia on current despite chest pressure pain. Plan: Increase metoprolol with additional 25 mg today. Supplement potassium. Echocardiogram will be reviewed given low voltages QRS on EKG and assess wall motion. We will begin arrangements for ablation with likely discharge later today and outpatient appointment depend on results of studies Subjective Patient seen and examined. Telemetry reveals no further atrial arrhythmias since early this morning. Overall feeling well no chest pain or discomfort. No evidence of ischemia by EKG or troponin. LV systolic function normal on echocardiogram. Recommendations been made for pursuing SVT ablation with patient agreeable. May be discharged home with increased dose of metoprolol to 50 mg a.m. 25 mg p.m., potassium chloride 10 mg p.o. daily in addition to current medical regimen. Appointment scheduled with Dr. Evette Shannon medical [facility] on 05/12/2019 interval arrangements made by phone regarding upcoming procedure Patient to return with any recurrence of symptoms of tachyarrhythmia Results & Data Vital Signs (Past 12 Hours) Vital Signs Temp Pulse Resp BP Pulse Ox 05/01/19 16:00 36.7 C 61 18 111/79 94 05/01/19 15:56 36.7 C 61 18 111/79 94 05/01/19 10:49 37.1 C 58 L 18 109/75 95 05/01/19 06:56 36.8 C 74 16 112/74 97
--- NOTE | 2019-05-01 16:50 | Discharge Summary ---
Date of Service May 01, 2019 Admission HPI Per Admitting Provider DICTATED BY: Alton Luna MD DATE OF ADMISSION: 05/01/2019 CHIEF COMPLAINT: Palpitations and chest pain. HISTORY OF PRESENT ILLNESS: This is a 53-year-old female with past medical history significant for ischemic heart disease, non-ST elevated [place] in 2015, status post stenting of RCA, history of atrial fibrillation and SVT, on Coumadin, history of type 2 diabetes, major depression, generalized osteoarthritis, history of tobacco abuse, presents with palpitations. The patient since last 2 days, she is not feeling well, not sleeping well. She felt some short of breath. She uses her home inhaler today morning. . On going to sleep tonight she had a cough and then suddenly felt her heart racing fast and also some chest discomfort. She tried to do some Valsalva maneuver which did not help and she came here and she was found to be in SVT, given adenosine and she converted back into sinus rhythm. Currently, her symptoms resolved. She is resting comfortably and hemodynamically stable, in normal sinus rhythm. Currently, denies any chest pain or shortness of breath. No cough, no fever, no chills, no sweating. She had headache earlier, but that has resolved now. No blurred visions. No earache, no runny nose, no sore throat. Appetite is okay. No abdominal pain. Normal bowel and bladder movements. No hematuria or burning micturition, no blood in the stools. No swelling in the legs. Principal Diagnosis PALPITATION /SVT Discharge Exam Constitutional WD/WN, vitals as above no acute distress Eyes PERRL, conjunctivae normal, anicteric sclerae ENMT external ear and nose normal, oropharynx normal Neck trachea midline, no thyromegaly Respiratory normal respiratory effort, lungs clear to auscultation Gastrointestinal (Abdomen) normal bowel sounds, soft, nontender, no hepatosplenomegaly Musculoskeletal no cyanosis or clubbing, extremities motor strength 5/5 Skin no rashes, warm and dry Neurologic PERRL, EOMI, accommodation nl, no face palsy, no dysarthria Psychiatric A+Ox3, euthymic affect Discharge Data Allergies Allergy/AdvReac Type Severity Reaction Status Date / Time Sulfa (Sulfonamide Allergy Severe ANAPHYLAXIS Verified 05/01/19 00:28 Antibiotics) adhesive Allergy Unknown RASH Verified 05/01/19 00:28 Consultations 05/01/19 01:02 ED Decision to Admit Stat 05/01/19 08:00 Consult Cardiology Routine Hospital Course (1) SVT (supraventricular tachycardia): admitted with symptomatic tachycardia : SOB , Palpitation , dizzy spell found to be in SVT in ER was given Adenosine , later Lopressor IV HR improved , remains rate controlled appreciate input from Cardiology : Beta jimmy dose increased /added PO potassium 10meq daily per cardiology recommendation stable to be discharged home today , out pt follow up scheduled with EP civil engineering specialist at [facility] for Ablation therapy Echo 05/01/2019: Left ventricle is normal in size. There is mild concentric left ventricular hypertrophy. Left ventricular wall motion is normal. Left ventricular systolic function is normal. Ejection fraction 60-65% There is no significant valvular disease. (2) Status post coronary artery stent placement: no evidence of ACS brief episode of chest heaviness /SOB due to SVT , resolved after HR control ECHO as above cont out previous cardiac meds (3) Diabetes mellitus type 2 with complications: resume out pt meds (4) Anticoagulated on Coumadin: INR theraputic (5) Paroxysmal a-fib: presented with SVT cont on Beta jimmy on Coumadin for chronic anticoagulation DISPOSITION : stable to be discharged home today Total Time Total Time Spent Total Time Spent (In Minutes): APPROX 40 MINS Total Time Includes: Examination of the Patient, Discharge Planning, Medication Reconciliation and Communication With Other Providers Discharge Plan Discharge Items Patient Disposition: Home - Self-Care Reason For Visit: PALPITATIONS Discharge Diagnosis: PALPITATIONS/RAPID HEART RATE, SUPRAVENTRICULAR TACHYCARDIA Activity: Resume your previous activity Non-emergency contact: Primary Care Provider Call non-emergency contact if: you have any medication questions Follow-up/Referrals: Jose Quiñonez MD [Primary Care Provider] - 05/06/19 10:45 am Diet: Carb Consistent or DM2 and Heart Healthy Addtl Attending Provider Instructions: Follow-up with cardiology as scheduled for cardiac ablation in [facility] in [place] Pending Studies at Discharge: No Stand-Alone Forms: My SMRxT, Smoking Cessation Medications and DC Order Prescriptions: New metoprolol tartrate 50 mg Tablet 75 mg PO UD 30 Days Qty: 45 RF: 0 potassium chloride 10 mEq tablet extended release 10 meq PO DAILY Qty: 30 RF: 0 Continued atorvastatin 40 mg Tablet 40 mg PO DAILY RF: 0 metformin 850 mg Tablet 850 mg PO BID RF: 0 tramadol 50 mg Tablet 50 mg PO Q6H PRN (Reason: Pain) RF: 0 glimepiride 2 mg Tablet 2 mg PO QAM RF: 0 warfarin 5 mg Tablet 10 mg PO DAILY RF: 0 Jardiance 25 mg Tablet 25 mg PO DAILY RF: 0 acetaminophen [Tylenol] 325 mg Tablet 650 mg PO TID PRN (Reason: Pain) RF: 0 aspirin [Ecotrin Low Strength] 81 mg Tablet,Delayed Release (Dr/Ec) 81 mg PO DAILY RF: 0 albuterol sulfate [Ventolin HFA] 90 mcg/actuation Hfa Aerosol Inhaler 2 puff INHALATION Q6H PRN (Reason: Wheezing) RF: 0 multivitamin Tablet 1 tab PO DAILY RF: 0 nitroglycerin [Nitrostat] 0.4 mg Tablet, Sublingual 0.4 mg sublingual Q5M PRN (Reason: Chest Pain) RF: 0 omeprazole 20 mg Capsule,Delayed Release(Dr/Ec) 20 mg PO DAILY RF: 0 lisinopril 2.5 mg Tablet 2.5 mg PO DAILY RF: 0 cetirizine [Zyrtec] 10 mg Tablet 10 mg PO HS RF: 0 fluticasone propionate [Flonase Allergy Relief] 50 mcg/actuation [place],Suspension 2 spray INTRANASAL DAILY RF: 0 magnesium oxide 500 mg Tablet 500 mg PO DAILY RF: 0 albuterol sulfate [ProAir HFA] 90 mcg/actuation Hfa Aerosol Inhaler 2 puff INHALATION QID PRN (Reason: sob) RF: 0 Cinnamon Plus Chromium 2 cap PO DIRECTED RF: 0 Cranberry Tablet 300 mg PO DAILY RF: 0 Biotin Plus Keratin 10,000-100 mcg-mg Tablet 2 tab PO DAILY RF: 0 cholecalciferol (vitamin D3) [Vitamin D3] 2,000 unit Tablet 5,000 unit PO DAILY RF: 0 Discharge Orders: Discharge Order (Routine); Ordered 05/01/19 Ordered By: Cady Hart Admission Data Admit Date/Time: 05/01/19 02:15 Attending Provider: Cady Hart Admit Provider: Alton Luna Primary Care Provider: Jose Quiñonez Other Providers: Alton Luna ; Tommy Parmar ; Federico Lynch ; Armando Felix ; Thomas Jackson ; Gigi Hill ; Ciro Guillaume ; Beatriz Abdullahi ; Joy Lyons ; Eliu Diggs Other Interventions: Discharge Summary Assessment (RN) Last Done: 05/01/19 16:00 DC Date/Time DO NOT enter until pt leaves facility: 05/01/19 16:44
[2019-05-01] MEDS ORDERED: CETIRIZINE HCL 10 MG TABLET PO SCH (21:00)
--- NOTE | 2019-05-02 05:33 | Electrocardiogram Report ---
Test Reason : Blood Pressure : / mmHG Vent. Rate : 081 BPM Atrial Rate : 081 BPM P-R Int : 184 ms QRS Dur : 092 ms QT Int : 392 ms P-R-T Axes : 036 -01 036 degrees QTc Int : 455 ms Poor data quality, interpretation may be adversely affected Normal sinus rhythm Cannot rule out Anterior infarct Abnormal ECG When compared with ECG of 01-MAY-2019 00:04, Vent. rate has decreased BY 86 BPM Sinus rhythm has replaced Supraventricular tachycardia Confirmed by Ramiro Gtz ([id number]) on 05/02/2019 5:33:26 AM Referred By: REFERRED SELF Confirmed By:Ramiro Gtz
--- NOTE | 2019-05-02 05:33 | Electrocardiogram Report ---
Test Reason : Blood Pressure : / mmHG Vent. Rate : 167 BPM Atrial Rate : 150 BPM P-R Int : 000 ms QRS Dur : 096 ms QT Int : 290 ms P-R-T Axes : 000 -03 187 degrees QTc Int : 483 ms Supraventricular tachycardia Possible Inferior infarct , age undetermined Anterior infarct , age undetermined Marked ST abnormality, possible lateral subendocardial injury Abnormal ECG When compared with ECG of 09-JUL-2018 06:22, Supraventricular tachycardia has replaced Sinus rhythm Confirmed by Ramiro Gtz ([id number]) on 05/02/2019 5:33:06 AM Referred By: REFERRED SELF Confirmed By:Ramiro Gtz
--- NOTE | 2019-05-02 05:53 | Electrocardiogram Report ---
Test Reason : Blood Pressure : / mmHG Vent. Rate : 058 BPM Atrial Rate : 058 BPM P-R Int : 206 ms QRS Dur : 082 ms QT Int : 422 ms P-R-T Axes : 024 010 031 degrees QTc Int : 414 ms Sinus bradycardia Cannot rule out Anterior infarct (cited on or before 01-MAY-2019) Abnormal ECG When compared with ECG of 01-MAY-2019 00:16, No significant change was found Confirmed by Ramiro Gtz ([id number]) on 05/02/2019 5:53:17 AM Referred By: REFERRED SELF Confirmed By:Ramiro Gtz
== END 2019-05-01 16:44 | disposition home or self-care (01) ==
LOC: ED 23:54 → 2S 23:54

== ENCOUNTER 2024-06-24 16:52 | Observation (INO) ==
--- NOTE | 2024-06-24 17:15 | Emergency Department Note ---
Impression & Plan Chest pain ED Provider Note Provider: Waylon Garza MD CHIEF COMPLAINT: Back and chest discomfort HISTORY OF PRESENT ILLNESS: Patient is a 58-year-old female past medical history significant for type 2 diabetes, CAD with stent 2014, SVT status post ablation no longer on anticoagulation presenting here today reporting onset of discomfort in the last 3 to 4 hours. States she had some discomfort around the posterior bra line radiation to the right neck and down her right arm to some degree. May be slightly short of breath. Bit of it is worse upper abdominal discomfort. Mentor a bit fatigued. Occurred while she was at work but not exertional. No lifting. No recent significant infections reported or travel. Denies any significant leg swelling. Reports this feels similar to when she had her first heart attack. Takes a baby aspirin every day. 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 PAST MEDICAL HISTORY: As noted above MEDICATIONS: Reviewed home medications SOCIAL HISTORY: Distant former smoker PHYSICAL EXAM: GENERAL: alert and oriented in no acute distress on stretcher Head: normocephalic and atraumatic EYES: No injection, discharge or icterus. NECK: Trachea midline. ENT: Mucous membranes pink and moist. LUNGS: Airway patent. No retractions. Breath sounds clear with good air entry bilaterally. HEART: Regular rate and rhythm. No chest wall tenderness ABDOMEN: Soft and non-tender, without guarding or rebound. SKIN: Acyanotic, warm, dry, without rashes EXTREMITIES: Without swelling, tenderness or deformity NEUROLOGICAL: No focal deficits. No aphasia. No facial droop or slurred speech. Ambulatory. EK bpm normal sinus rhythm. No PVC or PAC. No acute ST segment elevation or depression with a QTc of 445 CONTINUOUS CARDIAC MONITORING: was ordered and showed a heart rate of bpm in normal sinus rhythm Patient's laboratory studies and imaging reviewed. Differential includes Cardiac ischemia, aortic dissection, pulmonary embolism, pneumothorax, pneumonia, pericarditis, myocarditis, esophageal rupture, GERD, cholecystitis, pancreatitis, musculoskeletal, as well as other pathologies. IMPRESSION/MEDICAL DECISION MAKING: Patient ambulatory into the room and uses the restroom per her request. Upon counting and getting to the bed she states her symptoms have improved greatly now and is only 1 out of 10 discomfort. No longer rating to the abdomen arm or neck. Maybe a little bit of posterior back pain/pressure. Denies any trauma syncope or lifting. No recent travel. No sick the leg swelling. Lower suspicion at this time for PE or DVT based on her symptoms. Question given her similarities of symptoms to prior CAD if this is a recurrent ACS. EKG here without STEMI. Given additional aspirin for full dose for today. Blood work is sent. Doubt this represents hepatitis, pancreatitis, or GI related disturbance. Chest x-ray unremarkable per radiology. No pneumothorax or pneumonia noted. Blood work here without significant anemia or leukocytosis. No renal dysfunction or evidence of pancreatitis. Troponin normal here at 4.9. Discussed with the patient. Is having some improvement given the severity of her symptoms similar only to 1 prior event when she had a cardiac stent placed, did recommend we further observe her for cardiac monitoring. She was agreeable and the hospitalist team was consulted. DIAGNOSIS: Atypical chest pain DISPOSITION: Hospitalist will evaluate Patient was agreeable with this plan. Past Med/Surg History Problem List (Updated 06/24/24 @ 22:10 by Waylon Garza M.D.) Chest pain (Acute) Atypical chest pain Discharge planning issues DVT prophylaxis GERD (gastroesophageal reflux disease) (Chronic) Diabetes mellitus type 2 with complications (Chronic) Status post coronary artery stent placement (Chronic) Coronary artery disease (Chronic) Acute chest pain (Acute) SVT (supraventricular tachycardia) (Acute) Anticoagulated on Coumadin (Acute) History of hysterectomy (Chronic) S/P cholecystectomy (Chronic) Paroxysmal a-fib (Chronic 05/04/14) SVT (supraventricular tachycardia) (Chronic) Family History Mother Systemic lupus erythematosus Cervical cancer Stroke Tuberculosis Rheumatoid arthritis Father Hypertension Heart disease Diabetes Leukemia Grandmother (Maternal) Tuberculosis Social History Smoking Status: Former smoker Tobacco Type: Cigarettes Second Hand Exposure: No; Hx Alcohol Use: Yes Alcohol type: other Hx Substance Use: Yes Substance Use Type Other:: veronica Preferred Language: [place]araguan Communication Ability: Effective Freight Manager Required: No Beliefs That Will Affect Care: None Current Living Situation: Family Current Living Situation Comment: lives with her son and nephew Other Information That Helps Us Care for You: No Feels Safe at Home: Yes Assistive Devices: None Allergies Allergies Allergy/AdvReac Type Severity Reaction Status Date / Time Sulfa (Sulfonamide Allergy Severe ANAPHYLAXIS Verified 06/24/24 18:04 Antibiotics) adhesive Allergy Intermediate RASH Verified 06/24/24 18:04 Home Meds Home Medications Medication Instructions Recorded Confirmed acetaminophen 325 mg tablet 650 mg PO TID PRN Pain 07/09/18 06/24/24 (Tylenol) albuterol sulfate 90 mcg/actuation 2 puff inhalation QID PRN Wheezing 07/09/18 06/24/24 aerosol inhaler (Ventolin HFA) aspirin 81 mg tablet,delayed 81 mg PO DAILY 07/09/18 06/24/24 release (Ecotrin Low Strength) cetirizine 10 mg tablet (Zyrtec) 10 mg PO DAILY 07/09/18 06/24/24 empagliflozin 25 mg tablet 25 mg PO DAILY 07/09/18 06/24/24 (Jardiance) fluticasone propionate 50 2 spray intranasal DAILY 07/09/18 06/24/24 mcg/actuation nasal spray,suspension (Flonase Allergy Relief) glimepiride 2 mg tablet 2 mg PO DAILYBB 07/09/18 06/24/24 lisinopril 2.5 mg tablet 2.5 mg PO DAILY 07/09/18 06/24/24 metformin 850 mg tablet 850 mg PO BIDM 07/09/18 06/24/24 multivitamin 1 tab PO DAILY 07/09/18 06/24/24 nitroglycerin 0.4 mg sublingual 0.4 mg sublingual Q5M PRN Chest 07/09/18 06/24/24 tablet (Nitrostat) Pain omeprazole 20 mg capsule,delayed 20 mg PO DAILY 07/09/18 06/24/24 release tramadol 50 mg tablet 50 mg PO BID PRN Pain 07/09/18 06/24/24 Cinnamon Plus Chromium 2 cap PO DIRECTED 05/01/19 06/24/24 Cranberry Tablet 300 mg PO DAILY 05/01/19 06/24/24 biotin 10,000 mcg-keratin 100 mg 2 tab PO DAILY 05/01/19 06/24/24 tablet (Biotin Plus Keratin) cholecalciferol (vitamin D3) 50 5,000 unit PO DAILY 05/01/19 06/24/24 mcg (2,000 unit) tablet (Vitamin D3) magnesium oxide 500 mg PO DAILY 05/01/19 06/24/24 atorvastatin 80 mg tablet 80 mg PO DAILY 06/24/24 06/24/24 meclizine 25 mg tablet 25 mg PO TID PRN Dizziness 06/24/24 06/24/24 Previous Rx's Medication Instructions Recorded potassium chloride 10 mEq 10 meq PO DAILY #30 tabs 05/01/19 tablet,extended release Results & Data (ED) Vital Signs Vital Signs - 24 hr 06/24/24 16:54 06/24/24 17:09 06/24/24 17:09 Temperature 36.6 C Temperature Source Temporal Artery Scan Pulse Rate 67 69 71 Pulse Rate [Apical] Pulse Rate from SpO2 Sensor Respiratory Rate 18 20 Respiratory Effort / Characteristics Non-Labored Spontaneous Respiratory Depth Normal Respiratory Pattern Regular Blood Pressure 169/90 H Blood Pressure [Left Arm] Blood Pressure Mean 116 Blood Pressure Mean [Left Arm] Blood Pressure Position Sitting Blood Pressure Position [Left Arm] Pulse Oximetry 100 Oxygen Delivery Method Room Air Sepsis Recent Fever Within 48 Hours No Sepsis New/Unexplained Change in Mental Status N/A Sepsis Action Taken by Nursing No Action Required 06/24/24 17:12 06/24/24 17:24 06/24/24 17:31 Temperature Temperature Source Pulse Rate 65 59 L Pulse Rate [Apical] Pulse Rate from SpO2 Sensor Respiratory Rate 18 Respiratory Effort / Characteristics Respiratory Depth Respiratory Pattern Blood Pressure Blood Pressure [Left Arm] Blood Pressure Mean Blood Pressure Mean [Left Arm] Blood Pressure Position Blood Pressure Position [Left Arm] Pulse Oximetry 98 Oxygen Delivery Method Room Air Sepsis Recent Fever Within 48 Hours Sepsis New/Unexplained Change in Mental Status Sepsis Action Taken by Nursing 06/24/24 17:31 06/24/24 17:31 06/24/24 17:36 Temperature Temperature Source Pulse Rate 58 L 56 L Pulse Rate [Apical] 58 L Pulse Rate from SpO2 Sensor Respiratory Rate 16 16 18 Respiratory Effort / Characteristics Non-Labored Spontaneous Respiratory Depth Respiratory Pattern Blood Pressure Blood Pressure [Left Arm] 140/86 Blood Pressure Mean Blood Pressure Mean [Left Arm] 104 Blood Pressure Position Blood Pressure Position [Left Arm] Lying Pulse Oximetry 98 97 Oxygen Delivery Method Room Air Room Air Sepsis Recent Fever Within 48 Hours Sepsis New/Unexplained Change in Mental Status Sepsis Action Taken by Nursing 06/24/24 17:42 06/24/24 17:42 06/24/24 17:42 Temperature Temperature Source Pulse Rate Pulse Rate [Apical] Pulse Rate from SpO2 Sensor Respiratory Rate Respiratory Effort / Characteristics Respiratory Depth Respiratory Pattern Blood Pressure 140/86 140/86 140/86 Blood Pressure [Left Arm] Blood Pressure Mean 92 92 92 Blood Pressure Mean [Left Arm] Blood Pressure Position Blood Pressure Position [Left Arm] Pulse Oximetry Oxygen Delivery Method Sepsis Recent Fever Within 48 Hours Sepsis New/Unexplained Change in Mental Status Sepsis Action Taken by Nursing 06/24/24 17:42 06/24/24 17:42 06/24/24 17:42 Temperature Temperature Source Pulse Rate Pulse Rate [Apical] Pulse Rate from SpO2 Sensor Respiratory Rate Respiratory Effort / Characteristics Respiratory Depth Respiratory Pattern Blood Pressure 140/86 140/86 140/86 Blood Pressure [Left Arm] Blood Pressure Mean 92 92 92 Blood Pressure Mean [Left Arm] Blood Pressure Position Blood Pressure Position [Left Arm] Pulse Oximetry Oxygen Delivery Method Sepsis Recent Fever Within 48 Hours Sepsis New/Unexplained Change in Mental Status Sepsis Action Taken by Nursing 06/24/24 17:42 06/24/24 17:42 06/24/24 17:42 Temperature Temperature Source Pulse Rate Pulse Rate [Apical] Pulse Rate from SpO2 Sensor Respiratory Rate Respiratory Effort / Characteristics Respiratory Depth Respiratory Pattern Blood Pressure 140/86 140/86 140/86 Blood Pressure [Left Arm] Blood Pressure Mean 92 92 92 Blood Pressure Mean [Left Arm] Blood Pressure Position Blood Pressure Position [Left Arm] Pulse Oximetry Oxygen Delivery Method Sepsis Recent Fever Within 48 Hours Sepsis New/Unexplained Change in Mental Status Sepsis Action Taken by Nursing 06/24/24 17:42 06/24/24 17:42 06/24/24 17:42 Temperature Temperature Source Pulse Rate Pulse Rate [Apical] Pulse Rate from SpO2 Sensor Respiratory Rate Respiratory Effort / Characteristics Respiratory Depth Respiratory Pattern Blood Pressure 140/86 140/86 140/86 Blood Pressure [Left Arm] Blood Pressure Mean 92 92 92 Blood Pressure Mean [Left Arm] Blood Pressure Position Blood Pressure Position [Left Arm] Pulse Oximetry Oxygen Delivery Method Sepsis Recent Fever Within 48 Hours Sepsis New/Unexplained Change in Mental Status Sepsis Action Taken by Nursing 06/24/24 17:48 06/24/24 17:51 06/24/24 18:00 Temperature Temperature Source Pulse Rate 59 L 65 60 Pulse Rate [Apical] Pulse Rate from SpO2 Sensor 58 L 65 62 Respiratory Rate 21 15 17 Respiratory Effort / Characteristics Respiratory Depth Respiratory Pattern Blood Pressure Blood Pressure [Left Arm] Blood Pressure Mean Blood Pressure Mean [Left Arm] Blood Pressure Position Blood Pressure Position [Left Arm] Pulse Oximetry 95 94 94 Oxygen Delivery Method Sepsis Recent Fever Within 48 Hours Sepsis New/Unexplained Change in Mental Status Sepsis Action Taken by Nursing 06/24/24 18:00 06/24/24 18:00 06/24/24 18:00 Temperature Temperature Source Pulse Rate Pulse Rate [Apical] Pulse Rate from SpO2 Sensor Respiratory Rate Respiratory Effort / Characteristics Respiratory Depth Respiratory Pattern Blood Pressure 128/81 128/81 128/81 Blood Pressure [Left Arm] Blood Pressure Mean 102 102 102 Blood Pressure Mean [Left Arm] Blood Pressure Position Blood Pressure Position [Left Arm] Pulse Oximetry Oxygen Delivery Method Sepsis Recent Fever Within 48 Hours Sepsis New/Unexplained Change in Mental Status Sepsis Action Taken by Nursing 06/24/24 18:00 06/24/24 18:15 Temperature Temperature Source Pulse Rate 59 L Pulse Rate [Apical] Pulse Rate from SpO2 Sensor 59 L Respiratory Rate 18 Respiratory Effort / Characteristics Respiratory Depth Respiratory Pattern Blood Pressure 128/81 Blood Pressure [Left Arm] Blood Pressure Mean 102 Blood Pressure Mean [Left Arm] Blood Pressure Position Blood Pressure Position [Left Arm] Pulse Oximetry 98 Oxygen Delivery Method Sepsis Recent Fever Within 48 Hours Sepsis New/Unexplained Change in Mental Status Sepsis Action Taken by Nursing Laboratory Data 06/24/24 17:17 06/24/24 17:17 Lab Results 06/24/24 Range/Units 17:17 WBC 10.10 (4.8-10.8) K/ul RBC 5.02 (4.20-5.40) M/uL Hgb 14.6 (12.0-16.0) g/dl Hct 43.8 (37.0-47.0) % MCV 87.3 (80.0-100.0) fL MCH 29.1 (25.0-34.0) pg MCHC 33.3 (32.0-36.0) g/dL RDW Std Deviation 40.2 (36.4-46.3) fL RDW Coeff of Felicitas 12.7 (11.5-14.5) % Plt Count 238 (130-400) K/uL MPV 10.2 (9.4-12.4) fL Immature Gran % (Auto) 0.3 % Neut % (Auto) 44.3 % Lymph % (Auto) 45.3 % [place] % (Auto) 6.1 % Eos % (Auto) 3.2 % Baso % (Auto) 0.8 % Neut # (Auto) 4.47 (1.40-6.50) K/uL Lymph # (Auto) 4.58 H (1.20-3.40) K/uL [place] # (Auto) 0.62 H (0.11-0.59) K/uL Eos # (Auto) 0.32 (0.00-0.50) K/uL Baso # (Auto) 0.08 (0.00-0.20) K/uL Immature Gran # (Auto) 0.03 (0.01-0.20) K/uL ESR 13 (0-30) mm/hr PT 10.2 (9.0-12.0) Seconds INR 0.9 (0.9-1.1) APTT 25 (21-31) Seconds PTT Ratio 0.9 Sodium 137 (136-145) mmol/L Potassium 4.0 (3.5-5.1) mmol/L Chloride 101 (98-107) mmol/L Carbon Dioxide 29 (21-32) mmol/L Anion Gap 7 (3-11) BUN 14 (6-23) mg/dl Creatinine 0.62 (0.6-1.2) mg/dl Est Cr Clr Drug Dosing 122.5 ml/min eGFR 102.52 BUN/Creatinine Ratio 22.6 H (10-20) Glucose 109 H (70-99(Fasting)) mg/dl Calcium 9.7 (8.6-10.3) mg/dl Troponin I High Sens 4.9 (0-14) pg/ml Lipase 59 (11-82) U/L Administered Medications Insulin Aspart (Insulin Aspart Per Unit Charge) 0 units SC Q6 MARIELOS Stop: 07/24/24 21:08 Last Admin: 06/24/24 21:55 Dose: Not Given Documented By: SJM Discontinued Medications Aspirin (Aspirin Chew 324 Mg) 324 mg PO NOW STA Stop: 06/24/24 16:59 Last Admin: 06/24/24 17:29 Dose: Not Given Documented By: LORI Aspirin (Aspirin 81 Mg Chew) 243 mg PO NOW STA Stop: 06/24/24 17:24 Last Admin: 06/24/24 17:28 Dose: 243 mg Documented By: LORI Imaging Data Radiologist's Impression: Chest X-Ray 06/24/24 16:58 INDICATION: Chest pain. TECHNIQUE: Frontal radiograph of the chest. COMPARISON: Radiograph from 05/01/2019. FINDINGS: Cardiomegaly. Low inspiratory depth. Pulmonary vasculature appear within normal limits. No infiltrate, pleural effusion or pneumothorax. No acute osseous abnormality evident. IMPRESSION: No acute cardiopulmonary process. Electronically signed by Maury Ho 06-24-2024 5:32 PM Discharge Plan Visit Data Chief Complaint: Chest Pain Stated Complaint: CHEST PAINS, BACK PAIN, RT ARM PAIN, FEELS LIKE HOYT ED Provider: Waylon Garza Discharge Problem: Chest pain Patient Disposition: Admitted As Inpatient Discharge Instructions Interventions: ED Discharge Assessment Last Done: 06/24/24 21:00
[2024-06-24] MEDS: ASPIRIN 81 MG CHEW PO STA (17:28)
[2024-06-24] MEDS: ASPIRIN CHEW 324 MG PO STA (17:29)
--- NOTE | 2024-06-24 17:34 | XRay Report ---
INDICATION: Chest pain. TECHNIQUE: Frontal radiograph of the chest. COMPARISON: Radiograph from 05/01/2019. FINDINGS: Cardiomegaly. Low inspiratory depth. Pulmonary vasculature appear within normal limits. No infiltrate, pleural effusion or pneumothorax. No acute osseous abnormality evident. IMPRESSION: No acute cardiopulmonary process. Electronically signed by Maury Ho 06-24-2024 5:32 PM
[2024-06-24 17:35] LABS: Basophils # (auto) 0.08 K/uL (0.00-0.20); Basophils % (auto) 0.8 %; Eosinophils # (auto) 0.32 K/uL (0.00-0.50); Eosinophils % (auto) 3.2 %; Hematocrit (blood only) 43.8 % (37.0-47.0); Hemoglobin 14.6 g/dl (12.0-16.0); Immature Granulocytes # (auto) 0.03 K/uL (0.01-0.20); Immature Granulocytes % (auto) 0.3 %; Lymphocytes # (auto) 4.58 K/uL (1.20-3.40); Lymphocytes % (auto) 45.3 %; Mean Corpuscular Hemoglobin 29.1 pg (25.0-34.0); Mean Corpuscular Hgb Conc 33.3 g/dL (32.0-36.0); Mean Corpuscular Volume 87.3 fL (80.0-100.0); Mean Platelet Volume 10.2 fL (9.4-12.4); Monocytes # (auto) 0.62 K/uL (0.11-0.59); Monocytes % (auto) 6.1 %; Neutrophils # (auto) 4.47 K/uL (1.40-6.50); Neutrophils % (auto) 44.3 %; Platelet Count 238 K/uL (130-400); RDW Coefficient of Variation 12.7 % (11.5-14.5); RDW Standard Deviation 40.2 fL (36.4-46.3); Red Blood Count 5.02 M/uL (4.20-5.40)
[2024-06-24 17:51] LABS: BUN Creatinine Ratio 22.6 (10-20); Calcium 9.7 mg/dl (8.6-10.3); Creatinine Clr Calc Pharmacy 122.5 ml/min
[2024-06-24 17:58] LABS: Troponin I High Sensitivity 4.9 pg/ml (0-14)
[2024-06-24 18:01] LABS: INR 0.9 (0.9-1.1); Partial Thromboplastin Ratio 0.9; Partial Thromboplastin Time 25 Seconds (21-31); Prothrombin Time 10.2 Seconds (9.0-12.0)
--- NOTE | 2024-06-24 18:38 | History & Physical Report ---
Date of Service June 24, 2024 Assessment & Plan (1) Atypical chest pain: (2) Coronary artery disease: (3) Diabetes mellitus type 2 with complications: Plan This is a 58-year-old female who has a significant past medical history of CAD with history of CO in April 2014 status post TAHMINA to RCA, HTN, HLD, T2DM, history of atrial tachycardia status post ablation, depression, Asthma, hx of tobacco abuse who presents to ED secondary to chest pain. #Atypical Chest Pain #CAD hx of RCA stent in 2014 #Hx of PAT s/p ablation admit to PCU for obs serial trops, echo in a.m. consult cardiology for stress test in a.m. NPO after midnight Recent had A1C and Lipid panel on 06/18: a1c of 6.7, trig 219, total chol 117, ldl 58 and hdl 32. sx are not reproducible, does not appear to be MSK or GI related concern for possible cardiac pathology #HLD: chronic, stable, continue statin #HTN: chronic, stable continue lisinopril #T2DM - controlled: A1C 6.7, hold metformin, jardiance, glimepride, place on novolog ISS while inpt DVT ppx: none, if remains hospitalized > 24 hrs add SQ Lovenox FULL CODE PCP: perla Dispo: admit to PCU under obs Pt was seen and examined in collaboration with Dr. Sorensen, please see addendum I spent a total of 60 minutes coordinating, documenting and providing care for this patient excluding time spent in the performance of separately billed services or time spent by another provider/QHP. History of Present Illness Chief Complaint: Chest pain [employer]. Primary Care Provider: Jose Quiñonez MD This is a 58-year-old female who has a significant past medical history of CAD with history of CO in April 2014 status post TAHMINA to RCA, HTN, HLD, T2DM, history of atrial tachycardia status post ablation, depression, Asthma, hx of tobacco abuse who presents to ED secondary to chest pain. Patient [facility] cardiology but has not been seen in clinic since 2021.patient reports chest pain started approximately 1:30 PM. She was at work and states she was not exerting herself. Her pain was substernal, radiated to her back, right side of neck and down right arm. She reports her neck feeling, "heavy." She also reports numbness and tingling down both of her arms. She also had associated lightheadedness, nausea and feeling, "clammy." She reports the pain initially being an 8 out of 10. It was a crescendo decrescendo type of pain. It was constant but would come and go. When she arrived the ED pain had subsided significantly. She did not try any nitro. She reports symptoms feeling very similar to when she suffered a heart attack and had atrial arrhythmias in 2015. When symptoms started they checked her blood pressure at work and it was approximately 160s over 90s. She has been compliant with her medications. She states she has been active at home and she is currently in the process of moving. She denies lifting anything heavy or her symptoms being reproducible. She does report increasing shortness of breath with exertion specifically when going up and down her steps. She reports when packing she actually had to take a break at rest which is abnormal for her. Currently she feels her pain is minimal to absent. She received full dose aspirin in ED. She denies recent fever, chills, sweats, lightheadedness, shortness breath at rest, hemoptysis, vomiting, abdominal pain, change in her bowel or urinary habits. She feels that her sinus congestion is starting to come back. She denies any known sick contacts. She reports having a URI approximately 2 to 3 weeks ago. She denies her symptoms being worse with deep breathing or movement. In ED patient remained hemodynamically stable. Her initial troponin was unremarkable. Her EKG was nonischemic. She reports having chronic back pain symptoms and GERD and feels this does not feel similar. Pt outpt chart was reviewed. She recently had lab work that showed a1c of 6.7, trig 219, total chol 117, ldl 58 and hdl 32. She was seen in clinic on 06/10 05/11 acute sinusitis and prescribed doxycycline. She denies current smoking or alcohol use. Allergies Allergy/AdvReac Type Severity Reaction Status Date / Time Sulfa (Sulfonamide Allergy Severe ANAPHYLAXIS Verified 06/24/24 18:04 Antibiotics) adhesive Allergy Intermediate RASH Verified 06/24/24 18:04 Home Medications Medication Instructions Recorded Confirmed Type acetaminophen 325 mg tablet 650 mg PO TID PRN Pain 07/09/18 06/24/24 History (Tylenol) albuterol sulfate 90 mcg/actuation 2 puff inhalation QID PRN Wheezing 07/09/18 06/24/24 History aerosol inhaler (Ventolin HFA) aspirin 81 mg tablet,delayed 81 mg PO DAILY 07/09/18 06/24/24 History release (Ecotrin Low Strength) cetirizine 10 mg tablet (Zyrtec) 10 mg PO DAILY 07/09/18 06/24/24 History empagliflozin 25 mg tablet 25 mg PO DAILY 07/09/18 06/24/24 History (Jardiance) fluticasone propionate 50 2 spray intranasal DAILY 07/09/18 06/24/24 History mcg/actuation nasal spray,suspension (Flonase Allergy Relief) glimepiride 2 mg tablet 2 mg PO DAILYBB 07/09/18 06/24/24 History lisinopril 2.5 mg tablet 2.5 mg PO DAILY 07/09/18 06/24/24 History metformin 850 mg tablet 850 mg PO BIDM 07/09/18 06/24/24 History multivitamin 1 tab PO DAILY 07/09/18 06/24/24 History nitroglycerin 0.4 mg sublingual 0.4 mg sublingual Q5M PRN Chest 07/09/18 06/24/24 History tablet (Nitrostat) Pain omeprazole 20 mg capsule,delayed 20 mg PO DAILY 07/09/18 06/24/24 History release tramadol 50 mg tablet 50 mg PO BID PRN Pain 07/09/18 06/24/24 History Cinnamon Plus Chromium 2 cap PO DIRECTED 05/01/19 06/24/24 History Cranberry Tablet 300 mg PO DAILY 05/01/19 06/24/24 History biotin 10,000 mcg-keratin 100 mg 2 tab PO DAILY 05/01/19 06/24/24 History tablet (Biotin Plus Keratin) cholecalciferol (vitamin D3) 50 5,000 unit PO DAILY 05/01/19 06/24/24 History mcg (2,000 unit) tablet (Vitamin D3) magnesium oxide 500 mg PO DAILY 05/01/19 06/24/24 History potassium chloride 10 mEq 10 meq PO DAILY #30 tabs 05/01/19 06/24/24 Rx tablet,extended release atorvastatin 80 mg tablet 80 mg PO DAILY 06/24/24 06/24/24 History meclizine 25 mg tablet 25 mg PO TID PRN Dizziness 06/24/24 06/24/24 History Past Med/Surg History Problem List (Updated 06/24/24 @ 18:35 by Eufemia Mcclain PA-C) Atypical chest pain Discharge planning issues DVT prophylaxis GERD (gastroesophageal reflux disease) (Chronic) Diabetes mellitus type 2 with complications (Chronic) Status post coronary artery stent placement (Chronic) Coronary artery disease (Chronic) Acute chest pain (Acute) SVT (supraventricular tachycardia) (Acute) Anticoagulated on Coumadin (Acute) History of hysterectomy (Chronic) S/P cholecystectomy (Chronic) Paroxysmal a-fib (Chronic 05/04/14) SVT (supraventricular tachycardia) (Chronic) Family History Mother Systemic lupus erythematosus Cervical cancer Stroke Tuberculosis Rheumatoid arthritis Father Hypertension Heart disease Diabetes Leukemia Grandmother (Maternal) Tuberculosis Social History Smoking Status: Never smoker Second Hand Exposure: No; Hx Alcohol Use: No Hx Substance Use: No Preferred Language: Martiniquais Communication Ability: Effective Home Appliance Tech Required: No Beliefs That Will Affect Care: None Current Living Situation: Family Current Living Situation Comment: lives with her son and nephew Feels Safe at Home: Yes Assistive Devices: None Review of Systems Review of Systems: All systems reviewed & are unremarkable except as noted in HPI & below Physical Exam Physical Exam: Constitutional: WD/WN, vitals as above, NAD, sitting up in bed, pleasant, conversing easily Head: Normocephalic, Atraumatic Eyes: PERRL, conjunctivae normal, anicteric sclerae ENMT: external ear and nose normal, oropharynx normal Neck: trachea midline, no thyromegaly normal visual inspection Respiratory: normal respiratory effort, lungs clear to auscultation, no wheeze, rales, rhonchi. Normal insp/exp effort, no accessory muscle use Cardiovascular: RRR, no murmur, no edema Vessels: no JVD or carotid bruit Chest: normal inspection of chest Abdomen: normal bowel sounds, soft, nontender, no hepatosplenomegaly Musculoskeletal: no cyanosis or clubbing, extremities motor strength 5/5 Skin: no rashes, warm and dry normal turgor Neurologic: PERRL, EOMI, accommodation nl, no face palsy, no dysarthria CN's II-XI intact bilaterally and moves all extremities Psychiatric: A+Ox3, euthymic affect Lymphatic: no cervical or axillary lymphadenopathy : deferred Results & Data Results & Data Vital Signs (Past 12 Hours) Vital Signs Temp Pulse Pulse Resp BP BP Pulse Ox 06/24/24 18:15 59 L 18 98 06/24/24 18:00 128/81 06/24/24 18:00 128/81 06/24/24 18:00 128/81 06/24/24 18:00 128/81 06/24/24 18:00 60 17 94 06/24/24 17:51 65 15 94 06/24/24 17:48 59 L 21 95 06/24/24 17:42 140/86 06/24/24 17:42 140/86 06/24/24 17:42 140/86 06/24/24 17:42 140/86 06/24/24 17:42 140/86 06/24/24 17:42 140/86 06/24/24 17:42 140/86 06/24/24 17:42 140/86 06/24/24 17:42 140/86 06/24/24 17:42 140/86 06/24/24 17:42 140/86 06/24/24 17:42 140/86 06/24/24 17:36 56 L 18 06/24/24 17:31 58 L 16 97 06/24/24 17:31 58 L 16 140/86 98 06/24/24 17:31 98 06/24/24 17:24 59 L 18 06/24/24 17:12 65 06/24/24 17:09 71 20 06/24/24 17:09 69 06/24/24 16:54 36.6 C 67 18 169/90 H 100 O2 Del Method 06/24/24 18:15 06/24/24 18:00 06/24/24 18:00 06/24/24 18:00 06/24/24 18:00 06/24/24 18:00 06/24/24 17:51 06/24/24 17:48 06/24/24 17:42 06/24/24 17:42 06/24/24 17:42 06/24/24 17:42 06/24/24 17:42 06/24/24 17:42 06/24/24 17:42 06/24/24 17:42 06/24/24 17:42 06/24/24 17:42 06/24/24 17:42 06/24/24 17:42 06/24/24 17:36 06/24/24 17:31 Room Air 06/24/24 17:31 Room Air 06/24/24 17:31 Room Air 06/24/24 17:24 06/24/24 17:12 06/24/24 17:09 06/24/24 17:09 06/24/24 16:54 Room Air Laboratory Results I have independently reviewed and interpreted patient's admitting labs including CBC, CMP, PTT, PT/INR, lipase and troponin. Diagnostic Findings Chest X-Ray 06/24/24 16:58 INDICATION: Chest pain. TECHNIQUE: Frontal radiograph of the chest. COMPARISON: Radiograph from 05/01/2019. FINDINGS: Cardiomegaly. Low inspiratory depth. Pulmonary vasculature appear within normal limits. No infiltrate, pleural effusion or pneumothorax. No acute osseous abnormality evident. IMPRESSION: No acute cardiopulmonary process. Electronically signed by Maury Ho 06-24-2024 5:32 PM Medications Administered Medication List Discontinued Medications Aspirin (Aspirin Chew 324 Mg) 324 mg PO NOW STA Stop: 06/24/24 16:59 Last Admin: 06/24/24 17:29 Dose: Not Given Documented By: LORI Aspirin (Aspirin 81 Mg Chew) 243 mg PO NOW STA Stop: 06/24/24 17:24 Last Admin: 06/24/24 17:28 Dose: 243 mg Documented By: LORI ECG Additional Comments: I have independently reviewed and interpreted patient's admitting EKG which revealed: 76, NSR, no st or t wave change COVID-19 Results Results COVID-19 Adm Lab Results: RBC 5.02 M/uL (4.20-5.40) 06/24/24 WBC 10.10 K/ul (4.8-10.8) 06/24/24 Hgb 14.6 g/dl (12.0-16.0) 06/24/24 Hct 43.8 % (37.0-47.0) 06/24/24 Plt Count 238 K/uL (130-400) 06/24/24 Neutrophils (%) (Auto) 44.3 % 06/24/24 Lymphocytes (%) (Auto) 45.3 % 06/24/24 Monocytes # (Auto) 0.62 K/uL (0.11-0.59) H 06/24/24 Eosinophils # (Auto) 0.32 K/uL (0.00-0.50) 06/24/24 Immature Granulocyte % (Auto) 0.3 % 06/24/24 Neutrophils # (Auto) 4.47 K/uL (1.40-6.50) 06/24/24 Lymphocytes # (Auto) 4.58 K/uL (1.20-3.40) H 06/24/24 Monocytes # (Auto) 0.62 K/uL (0.11-0.59) H 06/24/24 Eosinophils # (Auto) 0.32 K/uL (0.00-0.50) 06/24/24 Basophils # (Auto) 0.08 K/uL (0.00-0.20) 06/24/24 Immature Granulocyte # (Auto) 0.03 K/uL (0.01-0.20) 5 Na 137 mmol/L (136-145) 06/24/24 K 4.0 mmol/L (3.5-5.1) 06/24/24 Cl 101 mmol/L (98-107) 06/24/24 CO2 29 mmol/L (21-32) 06/24/24 Anion Gap 7 (3-11) 06/24/24 BUN 14 mg/dl (6-23) 06/24/24 Creatinine 0.62 mg/dl (0.6-1.2) 06/24/24 BUN/Creatinine Ratio 22.6 (10-20) H 06/24/24 Glucose Level 109 mg/dl (70-99(Fasting)) H 06/24/24 Ca 9.7 mg/dl (8.6-10.3) 06/24/24 PTT 25 Seconds (21-31) 06/24/24 INR 0.9 (0.9-1.1) 06/24/24 Chest X-Ray 06/24/24 Code Status & VTE Plan Code Status FULL CODE VTE Prophylaxis Plan VTE Prophylaxis will be ordered: Yes Supervising Physician Co-Signing Physician Notes Patient seen and examined at bedside. Patient today had back pain, chest pain (reproducible to palpation, on bottom part of sternum), and numbness on bilateral arms. States similar to prior CO, hx of RCA stent in 2015. On exam, RRR, no murmur auscultated, troponin initial reassuring. Patient presenting with unstable angina (occurring at rest), and despite negative troponins and slight reproducibility, there is similar recurrent symptoms concerning for myocardial strain. Would benefit from consideration of stress test, appreciate cardiology input. I have seen and discussed the case with the collaborating advanced practitioner. I agree with the above H&P. I have reviewed and confirmed the patients medical history, the findings on physical examination, and the patients diagnosis and treatment plan with Eufemia Mcclain PA-C and agree with the information documented. I spent a total of 20 minutes coordinating, documenting, and providing care for this patient excluding time spent in the performance of separately billed services. All of the aforementioned completed outside of collaborating with the assigned advanced practitioner for a full treatment plan. I have reviewed the advanced practitioner's documentation, and I agree with, and take responsibility for the plan of care (2) Coronary artery disease Associated angina: with stable angina Coronary Disease-Associated Artery/Lesion type: [place] artery [place] vs. transplanted heart: [place] heart Qualified Code(s): I25.118 - Atherosclerotic heart disease of [place] coronary artery with other forms of angina pectoris
[2024-06-24 20:34] LABS: Troponin I High Sensitivity < 2.3 pg/ml (0-14)
[2024-06-24] MEDS ORDERED: GLUCOSE 40% GEL 15 GM TUBE PO PRN (21:09)
[2024-06-24] MEDS ORDERED: GLUCAGON FOR INJ 1 MG VIAL SQ PRN (21:09)
[2024-06-24] MEDS ORDERED: MELATONIN 3 MG TAB PO PRN (21:09)
[2024-06-24] MEDS ORDERED: GLUCOSE 10 TAB/TUBE PO PRN (21:09)
[2024-06-24] MEDS ORDERED: DEXTROSE 50% 50 ML SYRINGE IV PRN (21:09)
[2024-06-24] MEDS ORDERED: CARBOHYDRATES FOR HYPOGLYCEMIA PO PRN (21:09)
[2024-06-24] MEDS ORDERED: traMADol HCL 50 MG TABLET PO PRN (21:09)
[2024-06-24] MEDS ORDERED: ALBUTEROL HFA 8 GM INHALER INH PRN (21:09)
[2024-06-24] MEDS ORDERED: POLYETHYLENE (MIRALAX) 17 GM PACK PO PRN (21:09)
[2024-06-24] MEDS ORDERED: ONDANSETRON INJ 2 MG/ML 2 ML VIAL IV PRN (21:09)
[2024-06-24] MEDS ORDERED: ACETAMINOPHEN 325 MG TAB PO PRN (21:09)
[2024-06-24] MEDS ORDERED: FAMOTIDINE 20 MG TAB PO PRN (21:09)
[2024-06-24] MEDS: INSULIN ASPART PER UNIT CHARGE SC SCH (21:55)
[2024-06-24 22:50] LABS: C Reactive Protein < 0.50 mg/dl (0-0.5)
[2024-06-25 02:24] LABS: Hematocrit (blood only) 41.1 % (37.0-47.0); Hemoglobin 13.6 g/dl (12.0-16.0); Mean Corpuscular Hemoglobin 29.1 pg (25.0-34.0); Mean Corpuscular Hgb Conc 33.1 g/dL (32.0-36.0); Mean Platelet Volume 10.2 fL (9.4-12.4); Platelet Count 209 K/uL (130-400); RDW Coefficient of Variation 12.7 % (11.5-14.5); RDW Standard Deviation 40.9 fL (36.4-46.3); Red Blood Count 4.67 M/uL (4.20-5.40); White Blood Count 7.26 K/ul (4.8-10.8)
[2024-06-25 02:29] LABS: Anion Gap 5 (3-11); BUN Creatinine Ratio 22.1 (10-20); Blood Urea Nitrogen 15 mg/dl (6-23); Calcium 9.6 mg/dl (8.6-10.3); Carbon Dioxide 30 mmol/L (21-32); Chloride 106 mmol/L (98-107); Creatinine Clr Calc Pharmacy 111.9 ml/min; Glucose 90 mg/dl (70-99(Fasting)); Potassium 4.1 mmol/L (3.5-5.1); Sodium 141 mmol/L (136-145)
[2024-06-25 02:36] LABS: Troponin I High Sensitivity < 2.3 pg/ml (0-14)
[2024-06-25 02:54] LABS: Basophils # (auto) 0.06 K/uL (0.00-0.20); Basophils % (auto) 0.8 %; Eosinophils # (auto) 0.33 K/uL (0.00-0.50); Eosinophils % (auto) 4.5 %; Immature Granulocytes # (auto) 0.02 K/uL (0.01-0.20); Immature Granulocytes % (auto) 0.3 %; Lymphocytes # (auto) 3.88 K/uL (1.20-3.40); Lymphocytes % (auto) 53.4 %; Monocytes % (auto) 8.3 %; Neutrophils # (auto) 2.37 K/uL (1.40-6.50); Neutrophils % (auto) 32.7 %
--- OUTSIDE RECORDS SUMMARY | 2024-06-25 04:15 | External Medical Summary | Summary of Care ---
Author Name Unknown Organization [facility] Address [address] [place] [address] Phone [phone] Care Team Providers Care Professor Of Latin American Studies Name Role Phone Jose Quiñonez MD Primary Care Provider [phone] Reason for Visit * Reason Comments Acute Patient is here due to a sinus infection that has lasted for about two weeks. Patient has been experiencing congestion and pressure, has been using OTC meds with some relief. Encounter Details Date Type Department Care Team (Late st Contact Info) Description 06/10/2024 3:20 PM EST Office Visit [facility] [address] [place] [address] Jose Quiñonez MD [address], [place] [id number] Acute sinusitis, recurrence not specified, unspecified location*; Type 2 diabetes mellitus with hemoglobin A1c goal of less than 8.0% ([facility]); Encounter for long-term (current) use of medications; Uncomplicated asthma, unspecified asthma severity, unspecified whether persistent Allergies Active Allergy Reactions Criticality Noted Date Comments Latex 05/14/2015 Latex gloves Sulfa Antibiotics 06/20/2002 "throat swelled shut" documented as of this encounter (statuses as of 06/22/2024) Medications TYLENOL 325 MG PO TABS takes 650mg three times daily for body aches Active MULTIPLE VITAMINS PO TABSIndications :Foot pain 1 TABLET DAILY 04/26/19 13 Active Otterology ULTRA SYSTEM W/DEVICE KITIndications: DM type 2, goal A1c below 7 Use up to four times a day as directed 1 Kit 0 05/01/19 14 Active CRANBERRY 300 MG PO TABS one tab daily 05/13/19 15 Active CINNAMON PLUS CHROMIUM 200-1000 MCG-MG PO CAPS 2 caps daily 05/13/19 15 Active ASPIRIN EC 81 MG PO TBECIndications :CAD (coronary artery disease) one by mlout daily in the morning 90 Tab 1 05/13/19 15 Active fluticasone (FLONASE) 50 MCG/ACT nasal sprayIndication s:Chronic rhinitis Administer 2 Sprays into each nostril daily. 3 Bottle 5 01/01/20 15 Active cetirizine (ZYRTEC ALLERGY) 10 MG TabletIndicatio ns:Acute recurrent sinusitis, unspecified location Take 1 Tab by mouth daily. 05/06/19 17 Active Additional Information Patient taking differently:10 mg Oral Daily(AM),Indications: takes at night, Reported on 06/10/2024 Otterology DELICA LANCETS 33G MISCIndications :Type 2 diabetes mellitus with hemoglobin A1c goal of less than 8.0% (HCC) Testing sugar up to four times per day 300 Each 5 05/30/19 18 Active Cholecalciferol (VITAMIN D3) 5000 units Tablet Take 1 Tablet by mouth in the morning. Active Magnesium Oxide 250 MG TABS Take 500 mg by mouth daily. 30 Tab 01/17/20 18 Active Specialty Vitamins Products (BIOTIN PLUS KERATIN) 20182-903 MCG-MG TABS Take 2 Tabs by mouth daily. Active Glucose Blood ([employer] ULTRA BLUE) STRPIndications :Type 2 diabetes mellitus with hemoglobin A1c goal of less than 8.0% (HCC) Use up to four times a day as directed 300 Strip 1 03/01/20 18 Active Misc. Devices Custom molded inserts Type II DM, hammertoes, metatarsalgia, supination 1 Each 08/26/19 21 Active Meclizine HCl 25 MG Oral Tablet (Antivert)Indic ations:BPPV (benign paroxysmal positional vertigo), left Take 1 Tablet by mouth 3 times a day as needed for Dizziness. 30 Tablet 1 08/29/19 23 Active Azelastine HCl 0.1 % Nasal Solution (Astelin)Indica tions:Acute sinusitis, recurrence not specified, unspecified location,Nasal sinus congestion Administer 1 [place] into nostril in the morning and 1 [place] before bedtime. 30 mL 1 02/17/20 23 Active Additional Information Patient not taking.Reported on 06/10/2024 Nitroglycerin 0.4 MG Sublingual Tablet Sublingual (Nitrostat) Take 1 tab sublingual as directed for chest pain 25 Tablet 05/15/19 24 Active Albuterol Sulfate HFA 108 (90 Base) MCG/ACT Inhalation Aerosol SolutionIndicat ions:Bronchitis , complicated,Acu te maxillary sinusitis, recurrence not specified Inhale 2 Puffs by mouth in the morning and 2 Puffs at noon and 2 Puffs in the evening and 2 Puffs before bedtime. May substitute ventolin or proventil based on formulary. 108 g 3 06/19/19 24 Active metFORMIN HCl 850 MG Oral Tablet (Glucophage)Ind ications:Type 2 diabetes mellitus with hemoglobin A1c goal of less than 8.0% ([facility]) TAKE 1 TABLET BY MOUTH TWICE DAILY WITH MORNING MEAL AND EVENING MEAL 180 Tablet 3 08/02/19 24 Active Potassium Chloride ER 10 MEQ Oral Tablet Extended ReleaseIndicati ons:takes at night TAKE 1 TABLET BY MOUTH IN THE MORNING 90 Tablet 2 10/04/19 24 Active Jardiance 25 MG Oral Tablet (Empagliflozin) TAKE 1 TABLET BY MOUTH ONCE DAILY IN THE MORNING 90 Tablet 3 10/28/19 24 Active Lisinopril 2.5 MG Oral Tablet (Prinivil) TAKE 1 TABLET BY MOUTH ONCE DAILY IN THE MORNING 90 Tablet 3 11/02/19 24 Active Glimepiride 2 MG Oral Tablet (Amaryl) TAKE 1 TABLET BY MOUTH ONCE DAILY BEFORE BREAKFAST 90 Tablet 1 01/29/20 24 Active Omeprazole 20 MG Oral Capsule Delayed Release (PriLOSEC) Take 1 capsule by mouth in the morning 90 Capsule 1 03/11/20 24 Active Atorvastatin Calcium 80 MG Oral Tablet (Lipitor) Take 1 Tablet by mouth in the morning. 90 Tablet 3 05/23/19 25 Active traMADol HCl 50 MG Oral Tablet (Ultram)Indicat ions:Pectoralis major tendinitis, left Take 1 Tablet by mouth 2 times a day as needed for Pain, Severe. 60 Tablet 05/06/19 25 025 Discontinu ed(Refill) Doxycycline Hyclate 100 MG Oral Capsule Take 1 Capsule by mouth in the morning and 1 Capsule before bedtime. Do all this for 10 days. Until gone.. 20 Capsule 1 06/11/19 25 025 documented as of this encounter (statuses as of 06/22/2024) Active Problems Problem Noted Date Diagnosed Date Uncomplicated asthma 06/22/2024 Type 2 diabetes mellitus wit h hemoglobin A1c goal of less than 8.0% 02/28/2022 S/P ablation operation for arrhythmia 05/30/2019 History of right coronary artery stent placement 06/29/2015 Generalized osteoarthritis 06/29/2014 CAD (coronary artery disease) 05/21/2014 Dyslipidemia, goal LDL below 70 05/09/2013 Major depressive disorder, recurrent episode, mo derate 02/25/2008 History of tobacco use 01/03/2006 documented as of this encounter (statuses as of 06/22/2024) Resolved Problems Problem Noted Date Diagnosed Date Resolved Date Diabetes mellitus without complication 02/28/2022 02/28/2022 Prediabetes 08/15/2021 02/28/2022 Overview: Per Prediabetes protocol SVT (supraventricular tachycardia) 05/12/2019 03/24/2024 Overview (08/10/2021): Historical S/P Ablation for arrhythmia Added automatically from request for surgery [id number] SVT (supraventricular tachycardia) 02/11/2019 02/11/2019 Overview (08/10/2021): Duplicate-please resolve PAF (paroxysmal atrial fibrillation) 06/22/2015 08/28/2022 Chest discomfort 06/30/2014 11/23/2016 A-fib 05/15/2014 02/11/2019 Type 2 diabetes mellitus wit h hemoglobin A1c goal of less than 8.0% 05/14/2014 08/10/2021 Overview (08/05/2015): ICD-10 update of inactive term A-fib 05/07/2014 05/14/2014 Type 2 diabetes mellitus wit h hemoglobin A1c goal of less than 7.0% 06/03/2013 05/14/2014 Overview (08/03/2015): ICD-10 update of inactive term DM type 2 (diabetes mellitus, type 2) 05/09/2013 01/26/2017 Preoperative cardiovascular examination 05/09/2013 05/14/2014 HA (dyspnea on exertion) 05/09/2013 Family history of diabetes mellitus 02/10/2010 05/14/2014 Impaired fasting glucose 02/10/201008/2014 Obesity, Class II, BMI 35-39 .9, isolated (see actual BMI) 07/05/2009 11/23/2016 Overview (07/05/2009): Per Obesity Taxonomy Overweight (BMI 25.0-29.9) 02/25/2008 0 07/05/2009 Overview (07/05/2009): Per Obesity Taxonomy Lipoma 02/25/2008 02/11/2019 Overview (01/08/2017): ICD-10 update of inactive term ADVANCE DIRECTIVE INFORMATION 07/10/2006 02/11/2019 Overview (07/10/2006): No, Advance Directive brochure given to patient. Strep sore throat 07/10/2006 02/25/2008 ACUTE SINUSITIS NOS 01/03/2006 02/25/20 08 Chronic rhinitis 01/03/2006 11/23/2016 ACUTE URI NOS 01/03/2006 02/25/2008 documented as of this encounter (statuses as of 06/22/2024) Immunizations Name Administration Dates Next Due Hepatitis B, 20+ yrs 05/28/2017,12/26/2016,11/23 Pneumococcal Polysaccharide PPV23 (Pneumovax) 08/26/2009 Seasonal Influenza Vac., MDV , IM, 0.5 mL (Fluzone) 01/08/2016,01/20/2014,12/25/2012,12/28,01/21/2011,02/01/2010,02/10/2008 Seasonal Influenza, PF, 6 M & above, IM , (FluLaval or Fluzone) 01/10/2022,12/31/2019,01/22/2019,02/14 Seasonal Influenza, QUAD, wi th Preserv, 6 mons & Above, 0.5 mL, IM 12/22/2016 Seasonal Influenza, Quadriva lent, No Preserve, IM 02/03/2015 documented as of this encounter Social History Tobacco Use Types Packs/Day Years Used Date Smoking Tobacco: Former Cigarettes 1 33 0 05/10/1977 - 05/10/2010 Passive Smoke Exposure: Past Smokeless Tobacco: Never Alcohol Use Standard Drinks/Week Comments Yes 0 (1 standard drink = 0.6 oz pur e alcohol) occ. PHQ-2 Answer Date Recorded PHQ-2 Score 0 02/09/2020 Hunger Vital Sign Answer Date Recorded Worried About Running Out of Food in the Last Ye ar Never true 02/09/2020 Ran Out of Food in the Last Year Never true 02/09/2020 Comments No Sex and Gender Information Value Date Recorded Sex Assigned at Not on file Legal Sex Female 7:03 AM EST Gender Identity Not on file Sexual Orientation Straight 08/23/2021 7: 41 AM EDT documented as of this encounter Last Filed Vital Signs Vital Sign Reading Time Taken Comments Blood Pressure 120/80 06/10/2024 3:28 PM EST Pulse 72 06/10/2024 3:28 PM EST Temperature 36.1 C (96.9 F) 06/10/2024 3:28 PM ES T Respiratory Rate 16 06/10/2024 3:28 PM EST Oxygen Saturation 98% 06/10/2024 3:28 PM EST Inhaled Oxygen Concentration - - Weight 106.9 kg (235 lb 9.6 oz) 06/10/2024 3:28 PM EST Height 170.2 cm (5' 7") 06/10/2024 3:28 PM EST Body Mass Index 36.9 06/10/2024 3:28 PM EST documented in this encounter Progress Notes * Antonella Casiano, MED ASSIST - 06/10/2024 3:58 PM EST Socks and Shoes Removed for Annual Diabetic Foot Screening RIGHT FOOT: No Reddened, Cracking, Or Open Areas Noted. RIGHT Dorsalis Pedis Pulse: Palpable RIGHT Posterior Tibial Pulse: Palpable RIGHT Monofilament:Patient reports feeling monofilament pressure on plantar surface of foot LEFT FOOT: No Reddened, Cracking or Open Areas Noted. LEFT Dorsalis Pedis Pulse: Palpable LEFT Posterior Tibial Pulse: Palpable LEFT Monofilament:Patient reports feeling monofilament pressure on plantar surface of foot Do you need diabetic shoes: No * Jose Quiñonez MD - 06/10/2024 3:41 PM EST Subjective: Jaclyn Leigh is a 58 year old female here today for Chief Complaint Patient presents with Acute Patient is here due to a sinus infection that has lasted for about two weeks. Patient has been experiencing congestion and pressure, has been using OTC meds with some relief. History of Present Illness The patient, with a history of diabetes and heart disease, presents with a two- week history of sinus infection symptoms. She believes the infection started as a viral illness, possibly influenza, which then progressed to a bacterial sinus infection. The patient reports that the infection initially affected her chest but has now localized to her sinuses. She denies any associated fever. In addition to the sinus infection, the patient reports chronic issues with her nails feeling like they are splitting apart. She has been taking biotin for this issue but is unsure if it is the righttreatment. She also mentions that her nails are splitting and have ridges, which she is unsure if it is related to her diabetes or heart disease. Past Medical History: Diagnosis Date Arthritis Chronic rhinitis 01/03/2006 Esophageal reflux Lipoma AR (myocardial infarction) ([facility]) 04/2014 SVT (supraventricular tachycardia) ([facility]) 05/12/2019 Historical S/P Ablation for arrhythmia Added automatically from request for surgery [id number] Past Surgical History: Procedure Laterality Date ABD WALL HERNIA REPAIR, LAP, REDUCIBLE 05/22/2013 05/22/2013 Laparoscopic repair of ventral/incisional hernia with mesh 05/22/13 Dr. Vega at [facility] COLONOSCOPY, DIAGNOSTIC (RECTUM) 11/24/2019 adenomatous polyp, repeat 5 yrs / COLONOSCOPY FLEXIBLE PROXIMAL DIAGNOSTIC performed by Lori Burkett MD at ENDOSCOPY [facility] ELECTROPHYSIOLOGY EVAL & ABLATE SVT N/A 05/30/2019 SVT EPS AND CATHETER ABLATION performed by Evette Braun IV, MD at [facility] [place] INFORMATION 10/26/2009 10/26/2009 - excision of lipomas x 3 - benign - [facility] - Dr. Russo LIGATE/CUT OVIDUCT(S) 04/09/1986 MISCELLANEOUS ORDER ([facility] ONLY) 04/09/2014 stent R coronary artery REMOVE GALLBLADDER 04/09/1995 TOTAL ABD HYSTERECTOMY W/WO REMOVAL OF TUBE(S) 04/09/1995 large fibroid Review of patient's allergies indicates: Allergen Reactions Latex Latex gloves Sulfa Antibiotics "throat swelled shut" Current Outpatient Medications Medication Sig Dispense Refill TYLENOL 325 MG PO TABS takes 650mg three times daily for body aches MULTIPLE VITAMINS PO TABS 1 TABLET DAILY CRANBERRY 300 MG PO TABS one tab daily CINNAMON PLUS CHROMIUM 200-1000 MCG-MG PO CAPS 2 caps daily ASPIRIN EC 81 MG PO TBEC one by mlouth daily in the morning 90 Tab 1 fluticasone (FLONASE) 50 MCG/ACT nasal spray Administer 2 Sprays into each nostril daily. 3 Bottle 5 cetirizine (ZYRTEC ALLERGY) 10 MG Tablet Take 1 Tab by mouth daily. (Patient taking differently: Take 1 Tablet by mouth in the morning.) Cholecalciferol (VITAMIN D3) 5000 units Tablet Take 1 Tablet by mouth in the morning. Magnesium Oxide 250 MG TABS Take 500 mg by mouth daily. 30 Tab 0 Specialty Vitamins Products (BIOTIN PLUS KERATIN) 50189-045 MCG-MG TABS Take 2 Tabs by mouth daily. Mis. Devices Custom molded inserts Type II DM, hammertoes, metatarsalgia, supination 1 Each 0 Nitroglycerin 0.4 MG Sublingual Tablet Sublingual (Nitrostat) Take 1 tab sublingual as directed forchest pain 25 Tablet 0 Albuterol Sulfate HFA 108 (90 Base) MCG/ACT Inhalation Aerosol Solution Inhale 2 Puffs by mouth in the morning and 2 Puffs at noon and 2 Puffs in the evening and 2 Puffs before bedtime. May substitute ventolin or proventil based on formulary. 108 g 3 metFORMIN HCl 850 MG Oral Tablet (Glucophage) TAKE 1 TABLET BY MOUTH TWICE DAILY WITH MORNING MEAL AND EVENING MEAL 180 Tablet 3 Potassium Chloride ER 10 MEQ Oral Tablet Extended Release TAKE 1 TABLET BY MOUTH IN THE MORNING 90 Tablet 2 Jardiance 25 MG Oral Tablet (Empagliflozin) TAKE 1 TABLET BY MOUTH ONCE DAILY IN THE MORNING 90 Tablet 3 Lisinopril 2.5 MG Oral Tablet (Prinivil) TAKE 1 TABLET BY MOUTH ONCE DAILY IN THE MORNING 90 Tablet3 Glimepiride 2 MG Oral Tablet (Amaryl) TAKE 1 TABLET BY MOUTH ONCE DAILY BEFORE BREAKFAST 90 Tablet 1 Omeprazole 20 MG Oral Capsule Delayed Release (PriLOSEC) Take 1 capsule by mouth in the morning 90 Capsule 1 Atorvastatin Calcium 80 MG Oral Tablet (Lipitor) Take 1 Tablet by mouth in the morning. 90 Tablet 3 Head Held High SYSTEM W/DEVICE KIT Use up to four times a day as directed 1 Kit 0 Otterology DELICA LANCETS 33G MISC Testing sugar up to four times per day 300 Each 5 Glucose Blood (Otterology ULTRA BLUE) STRP Use up to four times a day as directed 300 Strip 1 Meclizine HCl 25 MG Oral Tablet (Antivert) Take 1 Tablet by mouth 3 times a day as needed for Dizziness. 30 Tablet 1 Azelastine HCl 0.1 % Nasal Solution (Astelin) Administer 1 [place] into nostril in the morning and 1 [place] before bedtime. (Patient not taking: Reported on 06/10/2024) 30 mL 1 traMADol HCl 50 MG Oral Tablet (Ultram) Take 1 Tablet by mouth 2 times a day as needed for Pain, Severe. 60 Tablet 0 No current facility-administered medications for this visit. Objective: BP 120/80 | Pulse 72 | Temp 96.9 F (36.1 C) (Tympanic) | Resp 16 | Ht 5' 7" (1.702 m) | Wt 235 lb 9.6 oz (106.9 kg) | SpO2 98% | BMI 36.90 kg/m | BSA 2.25 m GEN: NAD HEENT: PERRLA, EOMI, conjunctiva not injected or icteric. EACs clear of obstruction, inflammation, drainage. TM's normal without erythema or lesion. No fluid or infection seen in middle ear space. Nares clear of obstruction, lesion, drainage. OP without tonsillar enlargement or exudate, MMM, no lesion. NECK: Supple with no LAD, TM, JVD CHEST: CTA B CV: RRR Finger nails - no spooning. No evidence for dermatologic issue. Assessment & Plan Sinusitis Symptoms have persisted for two weeks, likely post-viral, with no lower respiratory involvement. Prescribe Doxycycline for 10 days, with a refill option if symptoms persist but show improvement. Brittle Nails This is a chronic issue with no systemic disease involvement. She is currently taking biotin. Continue biotin supplementation and consider adding collagen peptides to the daily regimen. Continue using moisturizer. Diabetes and Heart Disease There are no acute issues. Continue current management. General Health Maintenance Order fasting labs to check cholesterol, liver function, blood sugars, and B12 level, to be completed at [facility] when convenient. Remind her of the upcoming colonoscopy due in November 2024. Consider a mammogram for breast cancer screening, as it has been a few years since the last one. Perform adiabetic foot exam today. Uncomplicated asthma, unspecified asthma severity, unspecified whether persistent -no evidence for significant flare with current illness. Call for worsening symptoms. 30 min with pt and chart review. Jose Quiñonez MD documented in this encounter Nursing Notes * Antonella Casiano MED ASSIST - 06/10/2024 3:30 PM EST The patient has been properly identified by confirmation of name and date of . Chief Complaint Patient presents with Acute Patient is here due to a sinus infection that has lasted for about two weeks. Patient has been experiencing congestion and pressure, has been using OTC meds with some relief. documented in this encounter Plan of Treatment Scheduled Orders Name Type Priority Associated Diagnoses Orde r Schedule HEMOGLOBIN A1C Lab Routine Type 2 diabetes mellitus with hemoglobin A1c goal of less than 8.0% (HCC) Expected: 06/10/2024 (Approximate), Expires: 06/10/2025 LIPID PANEL WITH DIRECT LDL IF TG IS HIGH Lab Routine Type 2 diabetes mellitus with hemoglobin A1c goal of less than 8.0% (HCC) Expected: 06/10/2024, Expires: 06/10/2025 ALBUMIN / CREATININE RATIO, URINE Lab Routine Type 2 diabetes mellitus with hemoglobin A1c goal of less than 8.0% (HCC) Expected: 06/10/2024 (Approximate), Expires: 06/10/2025 COMPREHENSIVE METABOLIC PANEL Lab Routine Type 2 diabetes mellitus with hemoglobin A1c goal of less than 8.0% (HCC) Expected: 06/10/2024 (Approximate), Expires: 06/10/2025 VITAMIN B12 Lab Routine Encounter for long-term (current) use of medications Expected: 06/10/2024 (Approximate), Expires: 06/10/2025 MAGNESIUM Lab Routine Encounter for long-term (current) use of medications Expected: 06/10/2024 (Approximate), Expires: 06/10/2025 Scheduled Procedures Name Priority Associated Diagnoses Date/Ti me COLONOSCOPY FLEXIBLE PROXIMAL DIAGNOSTIC Recall History of colon polyps Health Maintenance Due Date Last Done Comments DTap/Tdap Vaccines (1 - Tdap) 09/18/1983 Cologuard 2009 Fecal Occult Blood Test 2009 Sigmoidoscopy 2009 Pneumococcal Vaccine: 50+ Years (2 of 2 - PCV) 08/26/2010 08/26/2009 Lung Cancer Screening 2014 Zoster Vaccines (1 of 2) 2014 Depression Monitoring 02/08/2021 02/09/2020 Mammogram 06/17/2022 06/17/2021, 06/07, 07/18/2016, Additional history exists COVID-19 Vaccine ( season) 2023 Influenza Vaccine (FLU shot) (#1) 2023 01/10/2022, 12/31/2019, 01/22/2019, Additional history exists HbA1c 12/20/2023 06/19/2023, 08/08, 02/28/2022, Additional history exists Albumin/Creatinine Ratio 06/18/2024 024, 08/28/2022, 08/12/2021, Additional history exists B-12 06/18/2024 06/19/2023, 08/08, 08/12/2021, Additional history exists Diabetic Eye Exam 06/18/2024 06/19/2023, , 02/09/2020, Additional history exists GFR 06/18/2024 06/19/2023, 08/08, 02/28/2022, Additional history exists Colonoscopy 11/23/2024 11/24/2019, 11/24/2019 Colorectal Cancer Screening 11/23/2024 Diabetic Foot Exam 06/10/2025 06/10/2024, 0 06/19/2023, 08/28/2022, Additional history exists Hepatitis B Vaccine Completed 05/28/2017, 12/26/2016, 11/23/2016 RETIRED - COLONOSCOPY-EVERY 5 YRS AGES 18-100 Discontinued 11/24/2019, 11/24/2019 HPV (Gardasil) Vaccine Aged Out No lo nger eligible based on patient's age to complete this topic MENINGOCOCCAL (MENACTRA/MENVEO) Aged Out No longer eligible based on patient's age to complete this topic Meningitis B Vaccine (Bexsero/Trumemba) Aged Out No longer eligible based on patient's age to complete this topic documented as of this encounter Medical Devices Not on filedocumented as of this encounter Visit Diagnoses Diagnosis Acute sinusitis, recurrence not specified, unspecified location- Primary Type 2 diabetes mellitus with hemoglobin A1c goal of less than 8.0% ([facility]) Encounter for long-term (current) use of medications Encounter for long-term (current) use of other medications Uncomplicated asthma, unspecified asthma severity, unspecified whether persistent documented in this encounter Advance Directives * Full Code (Latest Code Status on File) Date Activated Date Inactivated Comments 05/30/2019 4:54 PM 05/31/2019 1:14 PM This order r eflects the patients wishes and were consensually agreed upon. Care Teams Professor Of Latin American Studies Relationship Specialty Start Date End Date Jose Quiñonez MD PCP - General 01/26/00 documented as of this encounter
--- OUTSIDE RECORDS SUMMARY | 2024-06-25 04:15 | External Medical Summary | Summary of Care ---
Author Name Unknown Organization [facility] Address [address] [place] [address] Phone [phone] Care Team Providers Care Lathe Winder Name Role Phone Jose Quiñonez MD Primary Care Provider [phone]- [phone] Reason for Visit * Reason Onset Date Comments Medication Refill 05/22/2024 Encounter Details Date Type Department Care Team (Late st Contact Info) Description 05/22/2024 Refill Cardiology, [facility] [address] [facility] [place] [address] Thomas Jackson O, DO [address] [place] [address] Allergies Active Allergy Reactions Criticality Noted Date Comments Latex 05/14/2015 Latex gloves Sulfa Antibiotics 06/20/2002 "throat swelled shut" documented as of this encounter (statuses as of 05/23/2024) Medications TYLENOL 325 MG PO TABS takes 650mg three times daily for body aches Active MULTIPLE VITAMINS PO TABSIndications :Foot pain 1 TABLET DAILY 3 Active ONETOUCH ULTRA SYSTEM W/DEVICE KITIndications: DM type 2, goal A1c below 7 Use up to four times a day as directed 1 Kit 0 4 Active CRANBERRY 300 MG PO TABS one tab daily 5 Active CINNAMON PLUS CHROMIUM 200-1000 MCG-MG PO CAPS 2 caps daily 5 Active ASPIRIN EC 81 MG PO TBECIndications :CAD (coronary artery disease) one by mlouth daily in the morning 90 Tab 1 5 Active fluticasone (FLONASE) 50 MCG/ACT nasal sprayIndication s:Chronic rhinitis Administer 2 Sprays into each nostril daily. 3 Bottle 5 5 Active cetirizine (ZYRTEC ALLERGY) 10 MG TabletIndicatio ns:Acute recurrent sinusitis, unspecified location Take 1 Tab by mouth daily. 7 Active Additional Information Patient taking differently:10 mg Oral Daily(AM),Indications: takes at night, Reported on 03/24/2024 ONETOUCH DELICA LANCETS 33G MISCIndications :Type 2 diabetes mellitus with hemoglobin A1c goal of less than 8.0% (HCC) Testing sugar up to four times per day 300 Each 5 8 Active Cholecalciferol (VITAMIN D3) 5000 units Tablet Take 1 Tablet by mouth in the morning. Active Magnesium Oxide 250 MG TABS Take 500 mg by mouth daily. 30 Tab 8 Active Specialty Vitamins Products (BIOTIN PLUS KERATIN) 93072-355 MCG-MG TABS Take 2 Tabs by mouth daily. Active Glucose Blood (Tangent Data ServicesTOUCH ULTRA BLUE) STRPIndications :Type 2 diabetes mellitus with hemoglobin A1c goal of less than 8.0% (HCC) Use up to four times a day as directed 300 Strip 1 8 Active Misc. Devices Custom molded inserts Type II DM, hammertoes, metatarsalgia, supination 1 Each 1 Active Meclizine HCl 25 MG Oral Tablet (Antivert)Indic ations:BPPV (benign paroxysmal positional vertigo), left Take 1 Tablet by mouth 3 times a day as needed for Dizziness. 30 Tablet 1 3 Active Azelastine HCl 0.1 % Nasal Solution (Astelin)Indica tions:Acute sinusitis, recurrence not specified, unspecified location,Nasal sinus congestion Administer 1 [place] into nostril in the morning and 1 [place] before bedtime. 30 mL 1 3 Active Nitroglycerin 0.4 MG Sublingual Tablet Sublingual (Nitrostat) Take 1 tab sublingual as directed for chest pain 25 Tablet 4 Active Albuterol Sulfate HFA 108 (90 Base) MCG/ACT Inhalation Aerosol SolutionIndicat ions:Bronchitis , complicated,Acu te maxillary sinusitis, recurrence not specified Inhale 2 Puffs by mouth in the morning and 2 Puffs at noon and 2 Puffs in the evening and 2 Puffs before bedtime. May substitute ventolin or proventil based on formulary. 108 g 3 4 Active metFORMIN HCl 850 MG Oral Tablet (Glucophage)Ind ications:Type 2 diabetes mellitus with hemoglobin A1c goal of less than 8.0% (HCC) TAKE 1 TABLET BY MOUTH TWICE DAILY WITH MORNING MEAL AND EVENING MEAL 180 Tablet 3 4 Active Potassium Chloride ER 10 MEQ Oral Tablet Extended ReleaseIndicati ons:takes at night TAKE 1 TABLET BY MOUTH IN THE MORNING 90 Tablet 2 4 Active Jardiance 25 MG Oral Tablet (Empagliflozin) TAKE 1 TABLET BY MOUTH ONCE DAILY IN THE MORNING 90 Tablet 3 4 Active Lisinopril 2.5 MG Oral Tablet (Prinivil) TAKE 1 TABLET BY MOUTH ONCE DAILY IN THE MORNING 90 Tablet 3 4 Active Glimepiride 2 MG Oral Tablet (Amaryl) TAKE 1 TABLET BY MOUTH ONCE DAILY BEFORE BREAKFAST 90 Tablet 1 4 Active Omeprazole 20 MG Oral Capsule Delayed Release (PriLOSEC) Take 1 capsule by mouth in the morning 90 Capsule 1 4 Active traMADol HCl 50 MG Oral Tablet (Ultram)Indicat ions:Pectoralis major tendinitis, left Take 1 Tablet by mouth 2 times a day as needed for Pain, Severe. 60 Tablet 5 Active Atorvastatin Calcium 80 MG Oral Tablet (Lipitor) Take 1 Tablet by mouth in the morning. 90 Tablet 3 5 Active Atorvastatin Calcium 80 MG Oral Tablet (Lipitor) TAKE 1 TABLET BY MOUTH IN THE MORNING 30 Tablet 5 025 Discontin ued(Refil l) documented as of this encounter (statuses as of 05/23/2024) Active Problems Problem Noted Date Diagnosed Date Type 2 diabetes mellitus wit h hemoglobin A1c goal of less than 8.0% 02/28/2022 S/P ablation operation for arrhythmia 05/30/2019 History of right coronary artery stent placement 06/29/2015 Generalized osteoarthritis 06/29/2014 CAD (coronary artery disease) 05/21/2014 Dyslipidemia, goal LDL below 70 05/09/2013 Major depressive disorder, recurrent episode, mo derate 02/25/2008 History of tobacco use 01/03/2006 documented as of this encounter (statuses as of 05/23/2024) Resolved Problems Problem Noted Date Diagnosed Date Resolved Date Diabetes mellitus without complication 02/28/2022 02/28/2022 Prediabetes 08/15/2021 02/28/2022 Overview: Per Prediabetes protocol SVT (supraventricular tachycardia) 05/12/2019 03/24/2024 Overview (08/10/2021): Historical S/P Ablation for arrhythmia Added automatically from request for surgery [id number] SVT (supraventricular tachycardia) 02/11/2019 02/11/2019 Overview (08/10/2021): [...] as of this encounter (statuses as of 05/23/2024) Immunizations Name Administration Dates Next Due Hepatitis [...] AM EDT documented as of this encounter Miscellaneous Notes * Telephone Encounter - Thomas Jcakson DO - 05/23/2024 2:02 PM ESTSigned Prescriptions: Disp Refills Atorvastatin Calcium 80 MG Oral Tablet (Li*90 Tab*3 Sig: Take 1 Tablet by mouth in the morning. Authorizing Provider: THOMAS JACKSON * Telephone Encounter - Shayla Fierro RPh - 05/23/2024 11:21 AM ESTPending Prescriptions: Disp Refills Atorvastatin Calcium 80 MG Oral Tablet (Li*90 Tab*3 Sig: Take 1 Tablet by mouth in the morning. * Telephone Encounter - Shayla Fierro RPh - 05/23/2024 11:19 AM EST Unable to authorize medication refills for pended medication(s) at this time. Part of the protocol criteria used for refill authorization was not satisfied. Patient needs yearly OV. Patient is administrative receptionist back list. Please approve if appropriate. 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 And nothing available. Asking for 90 days. Did you pend patient's preferred pharmacy and medication before forwarding?yes [facility] [address] Pending Prescriptions: Disp Refills Atorvastatin Calcium 80 MG Oral Tablet (L*30 Tab*0 Sig: Take 1 Tablet by mouth in the morning. Last Visit: 06/05/2022 (in office), Visit date not found (telemedicine) Next Visit: Visit date not found If no future appointments scheduled, and last appointment is greater than a year ago, please schedule patient for a follow-up appointment Last date the medication was ordered: 05/06 Is this request for a controlled substance?No Urine Drug Screen: Results for orders placed or performed in visit on 05/03/18 TOX SCREEN, URINE, W/ CONFIRMATION Result Value Amphetamine NEGATIVE Barbiturates NEGATIVE Benzodiazepines NEGATIVE THC-COOH Confirmation, U NEGATIVE Cocaine Metabolite NEGATIVE Morphine / Codeine NEGATIVE METHADONE METABOLITE NEGATIVE OXYCODONE NEGATIVE TOX COMMENT THE ABOVE SCREENING RESULTS ARE PRESUMPTIVE AND CAN ONLY BE USED FOR MEDICAL PURPOSES. POSITIVE RESULTS REFLEX TO CONFIRMATORY TESTING. Cutoff Concentration Patient Phone Numbers Labs: Lab Results Component Value Date/Time CREAT 0.6 06/19/2023 03:01 PM CREAT 0.7 06/23/2019 04:31 PM POTASSIUM 4.4 06/19/2023 03:01 PM POTASSIUM 4.7 06/23/2019 04:31 PM TSH 0.97 06/19/2023 03:01 PM TSH 2.630 07/09/2018 12:00 AM TSH 1.92 12/28/2015 08:53 AM LDL 58 06/19/2023 03:01 PM LDL 77 08/12/2021 08:01 AM LDL 81 01/10/2019 02:38 PM LDL 50 07/12/2017 02:04 PM ALT 34 06/19/2023 03:01 PM ALT 38 (H) 07/12/2017 02:04 PM HGBA1C 6.7 (H) 06/19/2023 03:01 PM HGBA1C 6.3 (H) 12/01/2019 12:16 PM documented in this encounter Plan of Treatment Scheduled Procedures Name Priority Associated Diagnoses Date/Ti [...] 06/18/2024 06/19/2023, , 02/09/2020, Additional history exists Diabetic Foot Exam 06/18/2024 06/19/2023, 0 08/28/2022, 12/01/2019, Additional history exists GFR 06/18/2024 06/19/2023, 08/08, 02/28/2022, Additional history exists Colonoscopy 11/23/2024 11/24/2019, 11/24/2019 Colorectal Cancer Screening 11/23/2024 Hepatitis B Vaccine Completed 05/28/2017, 12/26/2016, 11/23/2016 [...] Not on filedocumented as of this encounter Advance Directives * Full Code (Latest Code Status on File) Date Activated Date Inactivated Comments 05/30/2019 4:54 PM 05/31/2019 1:14 PM This order r eflects the patients wishes and were consensually agreed upon. Care Teams Lathe Winder Relationship Specialty Start Date End Date Jose Quiñonez MD PCP - General 01/26/00 documented as of this encounter
--- OUTSIDE RECORDS SUMMARY | 2024-06-25 04:15 | External Medical Summary | Summary of Care ---
Author Name Unknown Organization [facility] Address [address] [place] [address] Phone [phone] Care Team Providers Care Catechist Name Role Phone Shaye Bright MD Primary Care Provider +1- [phone] Reason for Visit * Reason Onset Date Comments Medication Refill 06/17/2024 Encounter Details Date Type Department Care Team (Late st Contact Info) Description 06/17/[address] [facility] [address] [place] [address] Shaye Bright MD [address] [place] [address] Pectoralis major tendinitis, left Allergies Active Allergy Reactions Criticality Noted Date Comments Latex 05/14/2015 Latex gloves Sulfa Antibiotics 06/20/2002 "throat swelled shut" documented as of this encounter (statuses as of 06/19/2024) Medications TYLENOL 325 MG PO TABS takes 650mg three times daily for body aches Active MULTIPLE VITAMINS PO TABSIndications :Foot pain 1 TABLET DAILY 3 Active Silicon KineticsTOUCH ULTRA SYSTEM W/DEVICE KITIndications: DM type 2, [...] Daily(AM),Indications: takes at night, Reported on 06/10/2024 ONETOUCH DELICA LANCETS 33G MISCIndications :Type 2 [...] Active Specialty Vitamins Products (BIOTIN PLUS KERATIN) 74084-071 MCG-MG TABS Take 2 Tabs by mouth daily. Active Glucose Blood (Silicon KineticsTOUCH ULTRA BLUE) STRPIndications :Type 2 diabetes mellitus [...] specified, unspecified location,Nasal sinus congestion Administer 1 [place] into nostril in the morning and 1 [place] before bedtime. 30 mL 1 3 Active Additional Information Patient not taking.Reported on [...] the morning 90 Capsule 1 4 Active Atorvastatin Calcium 80 MG Oral Tablet (Lipitor) Take 1 Tablet by mouth in the morning. 90 Tablet 3 5 Active Doxycycline Hyclate 100 MG Oral Capsule Take 1 Capsule by mouth in the morning and 1 Capsule before bedtime. Do all this for 10 days. Until gone.. 20 Capsule 1 5 025 Active traMADol HCl 50 MG Oral Tablet (Ultram)Indicat ions:Pectoralis major tendinitis, left Take 1 Tablet by mouth 2 times a day as needed for Pain, Severe. 60 Tablet 5 Active traMADol HCl 50 MG Oral Tablet (Ultram)Indicat ions:Pectoralis major tendinitis, left Take 1 Tablet by mouth 2 times a day as needed for Pain, Severe. 60 Tablet 5 025 Discontin ued(Refil l) documented as of this encounter (statuses as of 06/19/2024) Active Problems Problem Noted Date Diagnosed Date [...] as of this encounter (statuses as of 06/19/2024) Resolved Problems Problem Noted Date Diagnosed Date Resolved Date Diabetes mellitus without complication 02/28/2022 02/28/2022 Prediabetes 08/15/2021 02/28/2022 Overview: Per Prediabetes protocol SVT (supraventricular tachycardia) 05/12/2019 03/24/2024 Overview (08/10/2021): Historical S/P Ablation for arrhythmia Added automatically from request for surgery [id number] SVT (supraventricular tachycardia) 02/11/2019 02/11/2019 Overview (08/10/2021): [...] as of this encounter (statuses as of 06/19/2024) Immunizations Name Administration Dates Next Due Hepatitis B, 20+ yrs 05/28/2017,12/26/2016,11/23 Pneumococcal Polysaccharide PPV23 (Pneumovax) 08/26/2009 Seasonal Influenza Vac., MDV , IM, 0.5 mL (Fluzone) 01/08/2016,01/20/2014,12/25/2012,12/28,01/21/2011,02/01/2010,02/10/2008 Seasonal Influenza, PF, 6 M & above, IM , (FluLaval or Fluzone) 01/10/2022,12/31/2019,01/22/2019,02/14 Seasonal Influenza, QUAD, wi th Preserv, 6 mons & Above, 0.5 mL, IM 12/22/2016 Seasonal Influenza, Quadriva melinda, No Preserve, IM 02/03/2015 documented as of [...] encounter Miscellaneous Notes * Telephone Encounter - Shaye Bright MD - 06/19/2024 9:22 AM EDTSigned Prescriptions: Disp Refills traMADol HCl 50 MG Oral Tablet (Ultram) 60 Tab*0 Sig: Take 1 Tablet by mouth 2 times a day as needed for Pain, Severe.Authorizing Provider: SHAYE BRIGHT------ * Telephone Encounter - Hayley Crockett, [facility] - 06/19/2024 8:55 AM EDT Pending Prescriptions: Disp Refills traMADol HCl 50 MG Oral Tablet (Ultram) 60 Tab*0 Sig: Take 1 Tablet by mouth 2 times a day as needed for Pain, Severe. * Telephone Encounter - Hayley Crockett RPh - 06/19/2024 8:54 AM EDT I have reviewed the patients controlled substance dispensing history in the Prescription Drug Monitoring Program in compliance with the [facility] regulations before prescribing a controlled substance. PDMP checked on 06/19/2024. Pending Prescriptions: Disp Refills traMADol HCl 50 MG Oral Tablet (Ultram) 60 Tab*0 Sig: Take 1 Tablet by mouth 2 times a day as needed for Pain, Severe. Last Visit: 06/10/2024 (in office), Visit date not found (telemedicine) Next Visit: Visit date not found Date medication was last filled: 05/07/24 Date medication is due for refill: 06/05/24 Pharmacy: [facility] [address] [place] [address] Soraya FRANCIS Is this request for a controlled substance? Yes and Urine Drug Screen was completed Toxicology results: Results for orders placed or performed in visit on 05/03/18 TOX SCREEN, URINE, W/ CONFIRMATION Result Value Amphetamine Screen, U NEGATIVE Barbiturates Screen, U NEGATIVE Benzodiazepines Screen, U NEGATIVE Cannabinoids Screen, U NEGATIVE Cocaine Metabolite Screen, U NEGATIVE Morphine/Codeine Screen, U NEGATIVE Methadone Metabolite Screen, U NEGATIVE Oxycodone Screen, U NEGATIVE TOX COMMENT THE ABOVE SCREENING RESULTS ARE PRESUMPTIVE AND CAN ONLY BE USED FOR MEDICAL PURPOSES. POSITIVE RESULTS REFLEX TO CONFIRMATORY TESTING. Cutoff Concentration Please approve if appropriate. Thank you, Hayley Crockett, PharmD Clinical Pharmacist [facility] ([facility]) 06/19/24 8:54 AM [phone] * Telephone Encounter - Karla Bran CPhT - 06/17/2024 4:04 PM EDT Did you pend patient's preferred pharmacy and medication before forwarding?yes Pharmacy: [facility] [address] [place] [address] Soraya FRANCIS Pending Prescriptions: Disp Refills traMADol HCl 50 MG Oral Tablet (Ultram) 60 Tab*0 Sig: Take 1 Tablet by mouth 2 times a day as needed for Pain, Severe. Last Visit: 06/10/2024 (in office), Visit date not found (telemedicine) Next Visit: Visit date not found If no future appointments scheduled, and last appointment is greater than a year ago, please schedule patient for a follow-up appointment Last date the medication was ordered: 05/06/24 Is this request for a controlled substance?Yes, What was the last refill date 05/06/24 w/ quantity 60 and dosage take 1 tablet by mouth 2 times a day as needed for pain and Urine Drug Screen Not completed Urine Drug Screen: Results for orders placed or performed in visit on 05/03/18 TOX SCREEN, URINE, W/ CONFIRMATION Result Value Amphetamine Screen, U NEGATIVE Barbiturates Screen, U NEGATIVE Benzodiazepines Screen, U NEGATIVE Cannabinoids Screen, U NEGATIVE Cocaine Metabolite Screen, U NEGATIVE Morphine/Codeine Screen, U NEGATIVE Methadone Metabolite Screen, U NEGATIVE Oxycodone Screen, U NEGATIVE TOX COMMENT THE ABOVE SCREENING RESULTS [...] as of this encounter Visit Diagnoses Diagnosis Pectoralis major tendinitis, left documented in this encounter Advance Directives * Full Code (Latest Code Status on File) Date Activated Date Inactivated Comments 05/30/2019 4:54 PM 05/31/2019 1:14 PM This order r eflects the patients wishes and were consensually agreed upon. Care Teams Catechist Relationship Specialty Start Date End Date Shaye Bright MD PCP - General 01/26/00 documented as of this encounter
--- OUTSIDE RECORDS SUMMARY | 2024-06-25 04:15 | External Medical Summary | Summary of Care ---
Author Name Unknown Organization [facility] Address [address] [place] [address] Phone [phone] Care Team Providers Care Newspaper Distributor Supervisor Name Role Phone Jose Quiñonez MD Primary Care Provider +1- [phone] Encounter Details Date Type Department Care Team (Late st Contact Info) Description 06/17/2024 Orders Only PATIENT PORTAL DO NOT DELETE THIS DEPT USED BY PENNY ORTEGA [id number] Allergies Active Allergy Reactions Criticality Noted Date Comments Latex 05/14/2015 Latex gloves Sulfa Antibiotics 06/20/2002 "throat swelled shut" documented as of this encounter (statuses as of 06/17/2024) Medications TYLENOL 325 MG PO TABS takes 650mg three times daily for body aches Active MULTIPLE VITAMINS PO TABSIndications: Foot pain 1 TABLET DAILY 3 Active ONETOUCH ULTRA SYSTEM W/DEVICE KITIndications:D M type 2, goal A1c below 7 Use up to four times a day as directed 1 Kit 0 4 Active CRANBERRY 300 MG PO TABS one tab daily 5 Active CINNAMON PLUS CHROMIUM 200-1000 MCG-MG PO CAPS 2 caps daily 5 Active ASPIRIN EC 81 MG PO TBECIndications: CAD (coronary artery disease) one by mlouth daily in the morning 90 Tab 1 5 Active fluticasone (FLONASE) 50 MCG/ACT nasal sprayIndications :Chronic rhinitis Administer 2 Sprays into each nostril daily. 3 Bottle 5 5 Active cetirizine (ZYRTEC ALLERGY) 10 MG TabletIndication s:Acute recurrent sinusitis, unspecified location Take 1 Tab by mouth daily. 7 Active Additional Information Patient taking differently:10 mg Oral Daily(AM),Indications: takes at night, Reported on 06/10/2024 Act-On SoftwareTOUCH DELICA LANCETS 33G MISCIndications: Type 2 diabetes mellitus with hemoglobin A1c goal of less than 8.0% ([facility]) Testing sugar up to four times per day 300 Each 5 8 Active Cholecalciferol (VITAMIN D3) 5000 units Tablet Take 1 Tablet by mouth in the morning. Active Magnesium Oxide 250 MG TABS Take 500 mg by mouth daily. 30 Tab 8 Active Specialty Vitamins Products (BIOTIN PLUS KERATIN) 06189-842 MCG-MG TABS Take 2 Tabs by mouth daily. Active Glucose Blood (mBeat MediaUCH ULTRA BLUE) STRPIndications: Type 2 diabetes mellitus with hemoglobin A1c goal of less than 8.0% ([facility]) Use up to four times a day as directed 300 Strip 1 8 Active Misc. Devices Custom molded inserts Type II DM, hammertoes, metatarsalgia, supination 1 Each 1 Active Meclizine HCl 25 MG Oral Tablet (Antivert)Indica tions:BPPV (benign paroxysmal positional vertigo), left Take 1 Tablet by mouth 3 times a day as needed for Dizziness. 30 Tablet 1 3 Active Azelastine HCl 0.1 % Nasal Solution (Astelin)Indicat ions:Acute sinusitis, recurrence not specified, unspecified location,Nasal sinus congestion Administer 1 [place] into nostril in the morning and 1 [place] before bedtime. 30 mL 1 3 Active Additional Information Patient not taking.Reported on 06/10/2024 Nitroglycerin 0.4 MG Sublingual Tablet Sublingual (Nitrostat) Take 1 tab sublingual as directed for chest pain 25 Tablet 4 Active Albuterol Sulfate HFA 108 (90 Base) MCG/ACT Inhalation Aerosol SolutionIndicati ons:Bronchitis, complicated,Acut e maxillary sinusitis, recurrence not specified Inhale 2 Puffs by mouth in the morning and 2 Puffs at noon and 2 Puffs in the evening and 2 Puffs before bedtime. May substitute ventolin or proventil based on formulary. 108 g 3 4 Active metFORMIN HCl 850 MG Oral Tablet (Glucophage)Susie cations:Type 2 diabetes mellitus with hemoglobin A1c goal of less than 8.0% (HCC) TAKE 1 TABLET BY MOUTH TWICE DAILY WITH MORNING MEAL AND EVENING MEAL 180 Tablet 3 4 Active Potassium Chloride ER 10 MEQ Oral Tablet Extended ReleaseIndicatio ns:takes at night TAKE 1 TABLET BY MOUTH [...] Active traMADol HCl 50 MG Oral Tablet (Ultram)Indicati ons:Pectoralis major tendinitis, left Take 1 Tablet by [...] days. Until gone.. 20 Capsule 1 5 06/21/19 25 Active documented as of this encounter (statuses as of 06/17/2024) Active Problems Problem Noted Date Diagnosed Date [...] as of this encounter (statuses as of 06/17/2024) Resolved Problems Problem Noted Date Diagnosed Date Resolved Date Diabetes mellitus without complication 02/28/2022 02/28/2022 Prediabetes 08/15/2021 02/28/2022 Overview: Per Prediabetes protocol SVT (supraventricular tachycardia) 05/12/2019 03/24/2024 Overview (08/10/2021): Historical S/P Ablation for arrhythmia Added automatically from request for surgery [id number] SVT (supraventricular tachycardia) 02/11/2019 02/11/2019 Overview (08/10/2021): [...] as of this encounter (statuses as of 06/17/2024) Immunizations Name Administration Dates Next Due Hepatitis [...] AM EDT documented as of this encounter Plan of Treatment Scheduled Procedures [...] and were consensually agreed upon. Care Teams Newspaper Distributor Supervisor Relationship Specialty Start Date End Date Jose Quiñonez MD PCP - General 01/26/00 documented as of this encounter
--- OUTSIDE RECORDS SUMMARY | 2024-06-25 04:16 | External Medical Summary | Summary of Care ---
Author Name Unknown Organization [facility] Address [address] [place] [address] Phone [phone] Care Team Providers Care Greens Laborer Name Role Phone Shaye Bright MD Primary Care Provider +1- [phone] Reason for Visit * Reason Comments eRx-Medication Refill Encounter Details Date Type Department Care Team (Late st Contact Info) Description 03/10/2024 Refill [facility] [address] [place] [id number] Shaye Bright MD [address] [place] [address] Allergies Active Allergy Reactions Criticality Noted Date Comments Latex 05/14/2015 Latex gloves Sulfa Antibiotics 06/20/2002 "throat swelled shut" documented as of this encounter (statuses as of 03/11/2024) Medications TYLENOL 325 MG PO TABS takes 650mg three times daily for body aches Active MULTIPLE VITAMINS PO TABSIndications :Foot pain 1 TABLET DAILY 04/26/19 13 Active ONETOUCH ULTRA SYSTEM W/DEVICE KITIndications: DM [...] Oral Daily(AM),Indications: takes at night, Reported on 06/05/2022 ONETOUCH DELICA LANCETS 33G MISCIndications :Type 2 [...] Active Specialty Vitamins Products (BIOTIN PLUS KERATIN) 60138-020 MCG-MG TABS Take 2 Tabs by mouth daily. Active Glucose Blood (ONETOUCH ULTRA BLUE) STRPIndications :Type 2 diabetes mellitus with hemoglobin A1c goal of less than 8.0% (HCC) Use up to four times a day as directed 300 Strip 1 03/01/20 18 Active Misc. Devices Custom molded inserts Type II DM, hammertoes, metatarsalgia, supination 1 Each 08/26/19 21 Active Estradiol 0.1 MG/GM Vaginal Cream (Estrace) Apply pea sized amount (0.5 gm) vaginally every other night. 42.5 g 3 03/08/20 22 Active Additional Information Patient not taking.Reported on 04/26/2023 Meclizine HCl 25 MG Oral Tablet (Antivert)Indic ations:BPPV (benign paroxysmal positional vertigo), left Take 1 Tablet by mouth 3 times a day as needed for Dizziness. 30 Tablet 1 08/29/19 23 Active Azelastine HCl 0.1 % Nasal Solution (Astelin)Indica tions:Acute sinusitis, recurrence not specified, unspecified location,Nasal sinus congestion Administer 1 [place] into nostril in the morning and 1 [place] before bedtime. 30 mL 1 02/17/20 23 Active Azithromycin 250 MG Oral Tablet (Zithromax Z-Yomi) Take two tablets by mouth on first day, then 1 tablet daily until gone 6 Tablet 04/26/19 24 Active Additional Information Patient not taking.Reported on 06/19/2023 Nitroglycerin 0.4 MG Sublingual Tablet Sublingual (Nitrostat) [...] hemoglobin A1c goal of less than 8.0% ([facility]) TAKE 1 TABLET BY MOUTH [...] MORNING 90 Tablet 3 11/02/19 24 Active Atorvastatin Calcium 80 MG Oral Tablet (Lipitor) TAKE 1 TABLET BY MOUTH IN THE MORNING 100 Tablet 01/28/20 24 Active Glimepiride 2 MG Oral Tablet (Amaryl) TAKE 1 TABLET BY MOUTH ONCE DAILY BEFORE BREAKFAST 90 Tablet 1 01/29/20 24 Active traMADol HCl 50 MG Oral Tablet (Ultram)Indicat ions:Pectoralis major tendinitis, left Take 1 Tablet by mouth 2 times a day as needed for Pain, Severe. 60 Tablet 02/22/20 24 Active Omeprazole 20 MG Oral Capsule Delayed Release (PriLOSEC) Take 1 capsule by mouth in the morning 90 Capsule 1 03/11/20 24 Active Omeprazole 20 MG Oral Capsule Delayed Release (PriLOSEC) Take 1 capsule by mouth in the morning 90 Capsule 12/15/19 24 024 Discontinued documented as of this encounter (statuses as of 03/11/2024) Active Problems Problem Noted Date Diagnosed Date Type 2 diabetes mellitus wit h hemoglobin A1c goal of less than 8.0% 02/28/2022 S/P ablation operation for arrhythmia 05/30/2019 SVT (supraventricular tachycardia) 05/12/2019 Overview (08/10/2021): Historical S/P Ablation for arrhythmia Added automatically from request for surgery [id number] History of right coronary artery stent placement 06/29/2015 Generalized osteoarthritis 06/29/2014 CAD (coronary artery disease) 05/21/2014 Dyslipidemia, goal LDL below 70 05/09/2013 Major depressive disorder, recurrent episode, mo derate 02/25/2008 History of tobacco use 01/03/2006 documented as of this encounter (statuses as of 03/11/2024) Resolved Problems Problem Noted Date Diagnosed Date Resolved Date Diabetes mellitus without complication 02/28/2022 02/28/2022 Prediabetes 08/15/2021 02/28/2022 Overview: Per Prediabetes protocol SVT (supraventricular tachycardia) 02/11/2019 02/11/2019 Overview (08/10/2021): [...] as of this encounter (statuses as of 03/11/2024) Immunizations Name Administration Dates Next Due Hepatitis [...] in the Last Year Never true 02/09/2020 Utilities Answer Date Recorded Do you have trouble paying y our heating, water, or electric bill? (Adult - for ages 18 years and over) Not on file 09/25/2023 Is your family able to pay t he heat, water, or electric bill? (Household - for ages 0-17 years) Not on file 09/25/2023 Does your family have access to good internet? (Household - for ages 0-17 years) Not on file 09/25/2023 Social Connections Answer Date Recorded How often do you feel lonely or isolated from those around you? (Adult - for ages 18 years and over) Not on file 09/25/2023 Comments No Sex and Gender Information Value Date Recorded Sex Assigned at Not on file Legal Sex Female 7:03 AM EST Gender Identity Not on file Sexual Orientation Straight 08/23/2021 7: 41 AM EDT documented as of this encounter Miscellaneous Notes * Telephone Encounter - Ellie Rodriguez RPh - 03/11/2024 10:49 AM ESTSigned Prescriptions: Disp Refills Omeprazole 20 MG Oral Capsule Delayed Rele*90 Cap*1 Sig: Take 1 capsule by mouth in the morningAuthorizing Provider: SHAYE BRIGHT User: ELLIE RODRIGUEZ documented in this encounter Plan of Treatment Scheduled Procedures Name Priority Associated Diagnoses Date/Ti me COLONOSCOPY FLEXIBLE PROXIMAL DIAGNOSTIC Recall History of colon polyps Health Maintenance Due Date Last Done Comments DTap/Tdap Vaccines (1 - Tdap) 09/18/1983 Cologuard 2009 Fecal Occult Blood Test 2009 Sigmoidoscopy 2009 Pneumococcal Vaccine: Pediatrics (0 to 5 Years) and At-Risk Patients (6 to 64 Years) (2 of 2 - PCV) 08/26/2010 08/26/2009 [...] and were consensually agreed upon. Care Teams Greens Laborer Relationship Specialty Start Date End Date Shaye Bright MD [address] [place] [address] PCP - General 01/26/00 documented as of this encounter
--- OUTSIDE RECORDS SUMMARY | 2024-06-25 04:16 | External Medical Summary | Summary of Care ---
Author Name Unknown Organization [facility] Address [address] [place] [address] Phone [phone] Care Team Providers Care Family Nurse Name Role Phone Shaye Bright MD Primary Care Provider +1- [phone] Reason for Visit * Reason Comments eRx-Medication Refill Encounter Details Date Type Department Care Team (Late st Contact Info) Description 01/27/2024 Refill [facility] [address] [place] [address] Shaye Bright MD [address] [place] [address] Allergies Active Allergy Reactions Criticality Noted Date Comments Latex 05/14/2015 Latex gloves Sulfa Antibiotics 06/20/2002 "throat swelled shut" documented as of this encounter (statuses as of 01/29/2024) Medications Medication Sig Dispensed Refills Start Date End Date Status TYLENOL 325 MG PO TABS takes 650mg three times daily for body aches Active MULTIPLE VITAMINS PO TABSIndications: Foot pain 1 TABLET DAILY 04/26/2012 Active BioBeatsTODtime ULTRA SYSTEM W/DEVICE KITIndications:D M type 2, goal A1c below 7 Use up to four times a day as directed 1 Kit 0 05/01/2013 Active CRANBERRY 300 MG PO TABS one tab daily 05/13/2014 Active CINNAMON PLUS CHROMIUM 200-1000 MCG-MG PO CAPS 2 caps daily 05/13/2014 Active ASPIRIN EC 81 MG PO TBECIndications: CAD (coronary artery disease) one by [facility] daily in the morning 90 Tab 1 05/13/2014 Active fluticasone (FLONASE) 50 MCG/ACT nasal sprayIndications :Chronic rhinitis Administer 2 Sprays into each nostril daily. 3 Bottle 5 12/31/2014 Active cetirizine (ZYRTEC ALLERGY) 10 MG TabletIndication s:Acute recurrent sinusitis, unspecified location Take 1 Tab by mouth daily. 05/06/2016 Active Additional Information Patient taking differently:10 mg Oral Daily(AM),Indications: takes at night, Reported on 06/05/2022 ONETOUCH DELICA LANCETS 33G MISCIndications: Type 2 diabetes mellitus with hemoglobin A1c goal of less than 8.0% (HCC) Testing sugar up to four times per day 300 Each 5 05/30/2017 Active Cholecalciferol (VITAMIN D3) 5000 units Tablet Take 1 Tablet by mouth in the morning. Active Magnesium Oxide 250 MG TABS Take 500 mg by mouth daily. 30 Tab 01/16/2018 Active Specialty Vitamins Products (BIOTIN PLUS KERATIN) 63612-624 MCG-MG TABS Take 2 Tabs by mouth daily. Active Glucose Blood (BioBeatsTOUCH ULTRA BLUE) STRPIndications: Type 2 diabetes mellitus with hemoglobin A1c goal of less than 8.0% (HCC) Use up to four times a day as directed 300 Strip 1 03/01/2018 Active Misc. Devices Custom molded inserts Type II DM, hammertoes, metatarsalgia, supination 1 Each 08/25/2020 Active Estradiol 0.1 MG/GM Vaginal Cream (Estrace) Apply pea sized amount (0.5 gm) vaginally every other night. 42.5 g 3 03/08/2022 Active Additional Information Patient not taking.Reported on 04/26/2023 Meclizine HCl 25 MG Oral Tablet (Antivert)Indica tions:BPPV (benign paroxysmal positional vertigo), left Take 1 Tablet by mouth 3 times a day as needed for Dizziness. 30 Tablet 1 08/28/2022 Active Azelastine HCl 0.1 % Nasal Solution (Astelin)Indicat ions:Acute sinusitis, recurrence not specified, unspecified location,Nasal sinus congestion Administer 1 [place] into nostril in the morning and 1 [place] before bedtime. 30 mL 1 02/16/2023 Active Azithromycin 250 MG Oral Tablet (Zithromax Z-Yomi) Take two tablets by mouth on first day, then 1 tablet daily until gone 6 Tablet 04/26/2023 Active Additional Information Patient not taking.Reported on 06/19/2023 Nitroglycerin 0.4 MG Sublingual Tablet Sublingual (Nitrostat) Take 1 tab sublingual as directed for chest pain 25 Tablet 05/15/2023 Active Albuterol Sulfate HFA 108 (90 Base) MCG/ACT Inhalation Aerosol SolutionIndicati ons:Bronchitis, complicated,Acut e maxillary sinusitis, recurrence not specified Inhale 2 Puffs by mouth in the morning and 2 Puffs at noon and 2 Puffs in the evening and 2 Puffs before bedtime. May substitute ventolin or proventil based on formulary. 108 g 3 06/19/2023 Active metFORMIN HCl 850 MG Oral Tablet (Glucophage)Susie cations:Type 2 diabetes mellitus with hemoglobin A1c goal of less than 8.0% (HCC) TAKE 1 TABLET BY MOUTH TWICE DAILY WITH MORNING MEAL AND EVENING MEAL 180 Tablet 3 08/02/2023 Active Potassium Chloride ER 10 MEQ Oral Tablet Extended ReleaseIndicatio ns:takes at night TAKE 1 TABLET BY MOUTH IN THE MORNING 90 Tablet 2 10/04/2023 Active Jardiance 25 MG Oral Tablet (Empagliflozin) TAKE 1 TABLET BY MOUTH ONCE DAILY IN THE MORNING 90 Tablet 3 10/28/2023 Active Lisinopril 2.5 MG Oral Tablet (Prinivil) TAKE 1 TABLET BY MOUTH ONCE DAILY IN THE MORNING 90 Tablet 3 11/02/2023 Active Omeprazole 20 MG Oral Capsule Delayed Release (PriLOSEC) Take 1 capsule by mouth in the morning 90 Capsule 12/15/2023 Active traMADol HCl 50 MG Oral Tablet (Ultram)Indicati ons:Pectoralis major tendinitis, left Take 1 Tablet by mouth 2 times a day as needed for Pain, Severe. 60 Tablet 01/16/2024 Active Atorvastatin Calcium 80 MG Oral Tablet (Lipitor) TAKE 1 TABLET BY MOUTH IN THE MORNING 100 Tablet 01/28/2024 Active Glimepiride 2 MG Oral Tablet (Amaryl) TAKE 1 TABLET BY MOUTH ONCE DAILY BEFORE BREAKFAST 90 Tablet 1 01/29/2024 Active Glimepiride 2 MG Oral Tablet (Amaryl) TAKE 1 TABLET BY MOUTH ONCE DAILY BEFORE BREAKFAST 90 Tablet 1 08/06/2023 4 Discontinued documented as of this encounter (statuses as of 01/29/2024) Active Problems Problem Noted Date Diagnosed Date Type 2 diabetes mellitus wit h hemoglobin A1c goal of less than 8.0% 02/28/2022 S/P ablation operation for arrhythmia 05/30/2019 SVT (supraventricular tachycardia) 05/12/2019 Overview: Historical S/P Ablation for arrhythmia Added automatically from request for surgery [id number] History of right coronary artery stent placement 06/29/2015 Generalized osteoarthritis 06/29/2014 CAD (coronary artery disease) 05/21/2014 Dyslipidemia, goal LDL below 70 05/09/2013 Major depressive disorder, recurrent episode, mo derate 02/25/2008 History of tobacco use 01/03/2006 documented as of this encounter (statuses as of 01/29/2024) Resolved Problems Problem Noted Date Diagnosed Date Resolved Date Diabetes mellitus without complication 02/28/2022 02/28/2022 Prediabetes 08/15/2021 02/28/2022 Overview: Per Prediabetes protocol SVT (supraventricular tachycardia) 02/11/2019 02/11/2019 Overview: Duplicate-please resolve PAF (paroxysmal atrial fibrillation) 06/22/2015 08/28/2022 Chest discomfort 06/30/2014 11/23/2016 A-fib 05/15/2014 02/11/2019 Type 2 diabetes mellitus wit h hemoglobin A1c goal of less than 8.0% 05/14/2014 08/10/2021 Overview: ICD-10 update of inactive term A-fib 05/07/2014 05/14/2014 Type 2 diabetes mellitus wit h hemoglobin A1c goal of less than 7.0% 06/03/2013 05/14/2014 Overview: ICD-10 update of inactive term DM type 2 (diabetes mellitus, type 2) 05/09/2013 01/26/2017 Preoperative cardiovascular examination 05/09/2013 05/14/2014 HA (dyspnea on exertion) 05/09/2013 Family history of diabetes mellitus 02/10/2010 05/14/2014 Impaired fasting glucose 02/10/201008/2014 Obesity, Class II, BMI 35-39 .9, isolated (see actual BMI) 07/05/2009 11/23/2016 Overview: Per Obesity Taxonomy Overweight (BMI 25.0-29.9) 02/25/2008 0 07/05/2009 Overview: Per Obesity Taxonomy Lipoma 02/25/2008 02/11/2019 Overview: ICD-10 update of inactive term ADVANCE DIRECTIVE INFORMATION 07/10/2006 02/11/2019 Overview: No, Advance Directive brochure given to patient. Strep sore throat 07/10/2006 02/25/2008 ACUTE SINUSITIS NOS 01/03/2006 02/25/20 08 Chronic rhinitis 01/03/2006 11/23/2016 ACUTE URI NOS 01/03/2006 02/25/2008 documented as of this encounter (statuses as of 01/29/2024) Immunizations Name Administration Dates Next Due Hepatitis [...] years and over) Not on file 09/25/2023 Sex and Gender Information Value Date Recorded Sex Assigned at Not on file Gender Identity Not on file Sexual Orientation Straight 08/23/2021 7: 41 AM EDT Job Start Date Occupation Industry Not on file Not on file Not on file documented as of this encounter Miscellaneous Notes * Telephone Encounter - Gigi Cruz RPh - 01/29/2024 4:56 AM EDTSigned Prescriptions: Disp Refills Glimepiride 2 MG Oral Tablet (Amaryl) 90 Tab*1 Sig: TAKE 1 TABLET BY MOUTH ONCE DAILY BEFORE BREAKFASTAuthorizing Provider: SHAYE BRIGHT User: GIGI CRUZ documented in this encounter Plan of Treatment [...] and were consensually agreed upon. Care Teams Family Nurse Relationship Specialty Start Date End Date Shaye Bright MD [address] [place] [address] PCP - General 01/26/00 documented as of this encounter
--- OUTSIDE RECORDS SUMMARY | 2024-06-25 04:16 | External Medical Summary | Summary of Care ---
Author Name Unknown Organization [facility] Address [address] [place] [address] Phone [phone] Care Team Providers Care Cash Posting Specialist Name Role Phone Jose Quiñonez MD Primary Care Provider +1- [phone] Reason for Visit * Reason Comments eRx-Medication Refill Encounter Details Date Type Department Care Team (Late st Contact Info) Description 01/24/2024 Refill Cardiology, [facility] [address] [facility] [id number] Thomas Jackson, [address] [place] [address] Allergies Active Allergy Reactions Criticality Noted Date Comments Latex 05/14/2015 Latex gloves Sulfa Antibiotics 06/20/2002 "throat swelled shut" documented as of this encounter (statuses as of 01/28/2024) Medications Medication Sig Dispensed Refills Start Date End Date Status TYLENOL 325 MG PO TABS takes 650mg three times daily for body aches Active MULTIPLE VITAMINS PO TABSIndications: Foot pain 1 TABLET DAILY 04/26/2012 Active Q-Sensei ULTRA SYSTEM W/DEVICE KITIndications:D M type 2, goal A1c below 7 Use up to four times a day as directed 1 Kit 0 05/01/2013 Active CRANBERRY 300 MG PO TABS one tab daily 05/13/2014 Active CINNAMON PLUS CHROMIUM 200-1000 MCG-MG PO CAPS 2 caps daily 05/13/2014 Active ASPIRIN EC 81 MG PO TBECIndications: CAD (coronary artery disease) [facility] 90 Tab 1 [...] hemoglobin A1c goal of less than 8.0% ([facility]) Testing sugar up to four times per day 300 Each 5 05/30/2017 Active Cholecalciferol (VITAMIN D3) 5000 units Tablet Take 1 Tablet by mouth in the morning. Active Magnesium Oxide 250 MG TABS Take 500 mg by mouth daily. 30 Tab 01/16/2018 Active Specialty Vitamins Products (BIOTIN PLUS KERATIN) 14779-051 MCG-MG TABS Take 2 Tabs by mouth daily. Active Glucose Blood (HaltonTOUCH ULTRA BLUE) STRPIndications: Type 2 diabetes mellitus [...] specified, unspecified location,Nasal sinus congestion Administer 1 [place] into nostril in the morning and 1 [place] before bedtime. 30 mL 1 02/16/2023 Active [...] EVENING MEAL 180 Tablet 3 08/02/2023 Active Glimepiride 2 MG Oral Tablet (Amaryl) TAKE 1 TABLET BY MOUTH ONCE DAILY BEFORE BREAKFAST 90 Tablet 1 08/06/2023 Active Potassium Chloride ER 10 MEQ Oral [...] IN THE MORNING 100 Tablet 01/28/2024 Active Atorvastatin Calcium 80 MG Oral Tablet (Lipitor) Take 1 Tablet by mouth in the morning. 100 Tablet 3 12/18/2022 4 Discontinued documented as of this encounter (statuses as of 01/28/2024) Active Problems Problem Noted Date Diagnosed Date Type 2 diabetes mellitus wit h hemoglobin A1c goal of less than 8.0% 02/28/2022 S/P ablation operation for arrhythmia 05/30/2019 SVT (supraventricular tachycardia) 05/12/2019 Overview: Historical S/P Ablation for arrhythmia Added automatically from request for surgery [id number] History of right coronary artery stent placement 06/29/2015 Generalized osteoarthritis 06/29/2014 CAD (coronary artery disease) 05/21/2014 Dyslipidemia, goal LDL below 70 05/09/2013 Major depressive disorder, recurrent episode, mo derate 02/25/2008 History of tobacco use 01/03/2006 documented as of this encounter (statuses as of 01/28/2024) Resolved Problems Problem Noted Date Diagnosed Date [...] as of this encounter (statuses as of 01/28/2024) Immunizations Name Administration Dates Next Due Hepatitis [...] Miscellaneous Notes * Telephone Encounter - Thomas Jackson DO - 01/28/2024 3:15 PM EDTSigned Prescriptions: Disp Refills Atorvastatin Calcium 80 MG Oral Tablet (Li*100 Ta*0 Sig: TAKE 1 TABLET BY MOUTH IN THE MORNING Authorizing Provider: THOMAS JACKSON * Telephone Encounter - Kayy Mcmanus PHARM Tech - 01/28/2024 11:06 AM EDT Pending Prescriptions: Disp Refills Atorvastatin Calcium 80 MG Oral Tablet (Li*100 Ta*0 Sig: TAKE 1 TABLET BY MOUTH IN THE MORNING * Telephone Encounter - Kayy Mcmanus PHARM Tech - 01/28/2024 11:05 AM EDT Received message from [facility] regarding patient needing an appointment. Call Placed, Unable to reach pt, as there was no answer and no VM available to leave message. Sent the patient a LearnUp message to advise. Thank you, Kayy Mcmanus [facility] Clinical Resource Coordinator II [facility] 01/28/2024,11:05 AM * Telephone Encounter - Kassi Young [facility] - 01/27/2024 5:35 AM EDTPending Prescriptions: Disp Refills Atorvastatin Calcium 80 MG Oral Tablet (Li*100 Ta*0 Sig: TAKE 1 TABLET BY MOUTH IN THE MORNING * Telephone Encounter - Kassi Young [facility] - 01/27/2024 5:32 AM EDT Please contact patient so that an appointment can be scheduled with her CARDIOLOGY provider before this refill can be authorized. After contacting patient, please forward request to Thomas Jackson DO. Last Visit: 06/05/2022 (in office), Visit date not found (telemedicine) Next Visit: Visit date not found Thank you, Kassi Young PharmD Clinical Pharmacist [facility] [phone] 01/27/2024, 5:35 AM documented in this encounter Plan of Treatment [...] and were consensually agreed upon. Care Teams Cash Posting Specialist Relationship Specialty Start Date End Date Jose Quiñonez MD [address] [place] [address] PCP - General 01/26/00 documented as of this encounter
--- OUTSIDE RECORDS SUMMARY | 2024-06-25 04:16 | External Medical Summary | Summary of Care ---
Author Name Unknown Organization [facility] Address [address] [place] [address] Phone [phone] Care Team Providers Care Market Researcher Name Role Phone Jose Quiñonez MD Primary Care Provider +1- [phone] Encounter Details Date Type Department Care Team (Late st Contact Info) Description 04/30/2024 Population Health External Data Unspecified Department Allergies Active Allergy Reactions Criticality Noted Date Comments Latex 05/14/2015 Latex gloves Sulfa Antibiotics 06/20/2002 "throat swelled shut" documented as of this encounter (statuses as of 04/30/2024) Medications TYLENOL 325 MG PO TABS takes 650mg three times daily for body aches Active MULTIPLE VITAMINS PO TABSIndications: Foot pain 1 TABLET DAILY 3 Active [employer] SYSTEM W/DEVICE KITIndications:D M type 2, goal [...] Reported on 03/24/2024 ONETOUCH DELICA LANCETS 33G MISCIndications: Type 2 diabetes mellitus with hemoglobin A1c goal of less than 8.0% ([facility]) Testing sugar up to four times per day 300 Each 5 8 Active Cholecalciferol (VITAMIN D3) 5000 units Tablet Take 1 Tablet by mouth in the morning. Active Magnesium Oxide 250 MG TABS Take 500 mg by mouth daily. 30 Tab 8 Active Specialty Vitamins Products (BIOTIN PLUS KERATIN) 03307-512 MCG-MG TABS Take 2 Tabs by mouth daily. Active Glucose Blood (ONETOUCH ULTRA BLUE) STRPIndications: Type 2 diabetes mellitus with hemoglobin A1c goal of less than 8.0% ([facility]) Use up to four times a day [...] specified, unspecified location,Nasal sinus congestion Administer 1 [place] into nostril in the morning and 1 [place] before bedtime. 30 mL 1 3 Active [...] THE MORNING 90 Tablet 3 4 Active Atorvastatin Calcium 80 MG Oral Tablet (Lipitor) TAKE 1 TABLET BY MOUTH IN THE MORNING 100 Tablet 4 Active Glimepiride 2 MG Oral Tablet [...] as needed for Pain, Severe. 60 Tablet 4 Active documented as of this encounter (statuses as of 04/30/2024) Active Problems Problem Noted Date Diagnosed Date [...] as of this encounter (statuses as of 04/30/2024) Resolved Problems Problem Noted Date Diagnosed Date Resolved Date Diabetes mellitus without complication 02/28/2022 02/28/2022 Prediabetes 08/15/2021 02/28/2022 Overview: Per Prediabetes protocol SVT (supraventricular tachycardia) 05/12/2019 03/24/2024 Overview (08/10/2021): Historical S/P Ablation for arrhythmia Added automatically from request for surgery [id number] SVT (supraventricular tachycardia) 02/11/2019 02/11/2019 Overview (08/10/2021): [...] as of this encounter (statuses as of 04/30/2024) Immunizations Name Administration Dates Next Due Hepatitis [...] and were consensually agreed upon. Care Teams Market Researcher Relationship Specialty Start Date End Date Jose Quiñonez MD PCP - General 01/26/00 documented as of this encounter
--- OUTSIDE RECORDS SUMMARY | 2024-06-25 04:16 | External Medical Summary | Summary of Care ---
Author Name Unknown Organization [facility] Address [address] [place] [address] Phone [phone] Care Team Providers Care Spanish Teacher Name Role Phone Shaye Bright MD Primary Care Provider [phone]- [phone] Reason for Visit * Reason Onset Date Comments Medication Refill 02/20/2024 Encounter Details Date Type Department Care Team (Late st Contact Info) Description 02/20/[address] [facility] [address] [place] [address] Shaye Bright MD [address] [place] [address] Pectoralis major tendinitis, left Allergies Active Allergy Reactions Criticality Noted Date Comments Latex 05/14/2015 Latex gloves Sulfa Antibiotics 06/20/2002 "throat swelled shut" documented as of this encounter (statuses as of 02/22/2024) Medications TYLENOL 325 MG PO TABS takes [...] Active Specialty Vitamins Products (BIOTIN PLUS KERATIN) 74578-921 MCG-MG TABS Take 2 Tabs by mouth daily. Active Glucose Blood (myThingsTOUCH ULTRA BLUE) STRPIndications :Type 2 diabetes mellitus with hemoglobin A1c goal of less than 8.0% (HCC) Use up to four times a day as directed 300 Strip 1 8 Active Misc. Devices Custom molded inserts Type II DM, hammertoes, metatarsalgia, supination 1 Each 1 Active Estradiol 0.1 MG/GM Vaginal Cream (Estrace) Apply pea sized amount (0.5 gm) vaginally every other night. 42.5 g 3 2 Active Additional Information Patient not taking.Reported on 04/26/2023 Meclizine HCl 25 MG Oral Tablet (Antivert)Indic ations:BPPV (benign paroxysmal positional vertigo), left Take 1 Tablet by mouth 3 times a day as needed for Dizziness. 30 Tablet 1 3 Active Azelastine HCl 0.1 % Nasal Solution (Astelin)Indica tions:Acute sinusitis, recurrence not specified, unspecified location,Nasal sinus congestion Administer 1 [place] into nostril in the morning and 1 [place] before bedtime. 30 mL 1 3 Active Azithromycin 250 MG Oral Tablet (Zithromax Z-Yomi) Take two tablets by mouth on first day, then 1 tablet daily until gone 6 Tablet 4 Active Additional Information Patient not taking.Reported on [...] goal of less than 8.0% ([facility]) TAKE 1 TABLET BY MOUTH [...] THE MORNING 90 Tablet 3 4 Active Omeprazole 20 MG Oral Capsule Delayed Release (PriLOSEC) Take 1 capsule by mouth in the morning 90 Capsule 4 Active Atorvastatin Calcium 80 MG Oral Tablet (Lipitor) TAKE 1 TABLET BY MOUTH IN THE MORNING 100 Tablet 4 Active Glimepiride 2 MG Oral Tablet (Amaryl) TAKE 1 TABLET BY MOUTH ONCE DAILY BEFORE BREAKFAST 90 Tablet 1 4 Active traMADol HCl 50 MG Oral Tablet (Ultram)Indicat ions:Pectoralis major tendinitis, left Take 1 Tablet by mouth 2 times a day as needed for Pain, Severe. 60 Tablet 4 Active traMADol HCl 50 MG Oral Tablet (Ultram)Indicat ions:Pectoralis major tendinitis, left Take 1 Tablet by mouth 2 times a day as needed for Pain, Severe. 60 Tablet 4 024 Discontin ued(Refil l) documented as of this encounter (statuses as of 02/22/2024) Active Problems Problem Noted Date Diagnosed Date Type 2 diabetes mellitus wit h hemoglobin A1c goal of less than 8.0% 02/28/2022 S/P ablation operation for arrhythmia 05/30/2019 SVT (supraventricular tachycardia) 05/12/2019 Overview (08/10/2021): Historical S/P Ablation for arrhythmia Added automatically from request for surgery [id number] History of right coronary artery stent placement 06/29/2015 Generalized osteoarthritis 06/29/2014 CAD (coronary artery disease) 05/21/2014 Dyslipidemia, goal LDL below 70 05/09/2013 Major depressive disorder, recurrent episode, mo derate 02/25/2008 History of tobacco use 01/03/2006 documented as of this encounter (statuses as of 02/22/2024) Resolved Problems Problem Noted Date Diagnosed Date [...] as of this encounter (statuses as of 02/22/2024) Immunizations Name Administration Dates Next Due Hepatitis [...] Telephone Encounter - Shaye Bright MD - 02/22/2024 1:01 PM ESTSigned Prescriptions: Disp Refills traMADol HCl 50 MG Oral Tablet (Ultram) 60 Tab*0 Sig: Take 1 Tablet by mouth 2 times a day as needed for Pain, Severe.Authorizing Provider: SHAYE BRIGHT------ * Telephone Encounter - Ceci Oconnell [facility] - 02/22/2024 9:12 AM ESTPending Prescriptions: Disp Refills traMADol HCl 50 MG Oral Tablet (Ultram) 60 Tab*0 Sig: Take 1 Tablet by mouth 2 times a day as needed for Pain, Severe. * Telephone Encounter - Ceci Oconnell [facility] - 02/22/2024 9:11 AM EST I have reviewed the patients controlled substance dispensing history in the Prescription Drug Monitoring Program in compliance with the [facility] regulations before prescribing a controlled substance. PDMP checked on 02/22/2024. Pending Prescriptions: Disp Refills traMADol HCl 50 MG Oral Tablet (Ultram) 60 Tab*0 Sig: Take 1 Tablet by mouth 2 times a day as needed for Pain, Severe. Last Visit: 06/19/2023 (in office), 03/24/2020 (telemedicine) Next Visit: Visit date not found Date medication was last filled: 01/16/24 Date medication is due for refill: 02/14/24 Pharmacy: [facility] [address] [address] K[place]ANC[place] Is this request for a controlled substance? Yes and Urine Drug Screen Not completed Toxicology results: Results for orders placed or performed in visit on 05/03/18 TOX SCREEN, URINE, W/ CONFIRMATION Result Value Amphetamine NEGATIVE Barbiturates NEGATIVE Benzodiazepines NEGATIVE Cannabinoids NEGATIVE Cocaine Metabolite NEGATIVE Morphine / Codeine NEGATIVE METHADONE METABOLITE NEGATIVE OXYCODONE NEGATIVE TOX COMMENT THE ABOVE SCREENING RESULTS ARE PRESUMPTIVE AND CAN ONLY BE USED FOR MEDICAL PURPOSES. POSITIVE RESULTS REFLEX TO CONFIRMATORY TESTING. Cutoff Concentration Please approve if appropriate. Virginia Lue Kourtnye, PharmD Clinical Pharmacist Centralized Clinical Pharmacy Services [phone] 02/22/2024 9:11 AM * Telephone Encounter - Kristen Ta PHARM Tech - 02/20/2024 4:05 PM EST Did you pend patient's preferred pharmacy and medication before forwarding?yes Pharmacy: [facility] [id number] [facility] Pending Prescriptions: Disp Refills traMADol HCl 50 MG Oral Tablet (Ultram) 60 Tab*0 Sig: Take 1 Tablet by mouth 2 times a day as needed for Pain, Severe. Last Visit: 06/19/2023 (in office), 03/24/2020 (telemedicine) Next Visit: Visit date not found If no future appointments scheduled, and last appointment is greater than a year ago, please schedule patient for a follow-up appointment Last date the medication was ordered: 01/16/2024 Is this request for a controlled substance?Yes, What was the last refill date 01/16/2024 w/ quantity 60 and dosage 50MG and Urine Drug Screen was completed Urine Drug Screen: Results for orders placed or performed in visit on 05/03/18 TOX SCREEN, URINE, W/ CONFIRMATION Result Value Amphetamine NEGATIVE Barbiturates NEGATIVE Benzodiazepines NEGATIVE Cannabinoids NEGATIVE Cocaine Metabolite NEGATIVE Morphine / Codeine [...] 12/01/2019, Additional history exists GFR 06/18/2024 06/19/2023, 05/2 05/2022, 02/28/2022, Additional history exists Colonoscopy 11/23/2024 11/24/2019, [...] and were consensually agreed upon. Care Teams Spanish Teacher Relationship Specialty Start Date End Date Shaye Bright MD [address] [place] [address] PCP - General 01/26/00 documented as of this encounter
--- OUTSIDE RECORDS SUMMARY | 2024-06-25 04:16 | External Medical Summary | Summary of Care ---
Author Name Unknown Organization [facility] Address [address] [place] [address] Phone [phone] Care Team Providers Care Sweet Potato Disintegrator Name Role Phone Shaye Bright MD Primary Care Provider [phone]- [phone] Reason for Visit * Reason Onset Date Comments Medication Refill 01/14/2024 Encounter Details Date Type Department Care Team (Late st Contact Info) Description 01/14/[address] [facility] [address] [place] [address] Shaye Bright MD [address] [place] [address] Pectoralis major tendinitis, left Allergies Active Allergy Reactions Criticality Noted Date Comments Latex 05/14/2015 Latex gloves Sulfa Antibiotics 06/20/2002 "throat swelled shut" documented as of this encounter (statuses as of 01/16/2024) Medications Medication Sig Dispensed Refills Start Date End Date Status TYLENOL 325 MG PO TABS takes 650mg three times daily for body aches Active MULTIPLE VITAMINS PO TABSIndications:F oot pain 1 TABLET DAILY 04/26/2012 Active ONETOUCH ULTRA SYSTEM W/DEVICE KITIndications:DM type 2, goal A1c below 7 Use up to four times a day as directed 1 Kit 0 05/01/2013 Active CRANBERRY 300 MG PO TABS one tab daily 05/13/2014 Active CINNAMON PLUS CHROMIUM 200-1000 MCG-MG PO CAPS 2 caps daily 05/13/2014 Active ASPIRIN EC 81 MG PO TBECIndications:C AD (coronary artery disease) one by mlouth daily in the morning 90 Tab 1 05/13/2014 Active fluticasone (FLONASE) 50 MCG/ACT nasal sprayIndications: Chronic rhinitis Administer 2 Sprays into each nostril daily. 3 Bottle 5 12/31/2014 Active cetirizine (ZYRTEC ALLERGY) 10 MG TabletIndications :Acute recurrent sinusitis, unspecified location Take 1 Tab by mouth daily. 05/06/2016 Active Additional Information Patient taking differently:10 mg Oral Daily(AM),Indications: takes at night, Reported on 06/05/2022 ONETOUCH DELICA LANCETS 33G MISCIndications:T ype 2 diabetes mellitus with hemoglobin A1c goal of less than 8.0% (HCC) Testing sugar up to four times per day 300 Each 5 05/30/2017 Active Cholecalciferol (VITAMIN D3) 5000 units Tablet Take 1 Tablet by mouth in the morning. Active Magnesium Oxide 250 MG TABS Take 500 mg by mouth daily. 30 Tab 01/16/2018 Active Specialty Vitamins Products (BIOTIN PLUS KERATIN) 05035-706 MCG-MG TABS Take 2 Tabs by mouth daily. Active Glucose Blood (PartTecTOUCH ULTRA BLUE) STRPIndications:T ype 2 diabetes mellitus with hemoglobin A1c goal [...] 04/26/2023 Meclizine HCl 25 MG Oral Tablet (Antivert)Indicat ions:BPPV (benign paroxysmal positional vertigo), left Take 1 Tablet by mouth 3 times a day as needed for Dizziness. 30 Tablet 1 08/28/2022 Active Atorvastatin Calcium 80 MG Oral Tablet (Lipitor) Take 1 Tablet by mouth in the morning. 100 Tablet 3 12/18/2022 Active Azelastine HCl 0.1 % Nasal Solution (Astelin)Indicati ons:Acute sinusitis, recurrence not specified, unspecified location,Nasal sinus congestion Administer 1 [place] into nostril in the morning and 1 [place] before bedtime. 30 mL 1 02/16/2023 Active [...] HFA 108 (90 Base) MCG/ACT Inhalation Aerosol SolutionIndicatio ns:Bronchitis, complicated,Acute maxillary sinusitis, recurrence not specified Inhale 2 Puffs by mouth in the morning and 2 Puffs at noon and 2 Puffs in the evening and 2 Puffs before bedtime. May substitute ventolin or proventil based on formulary. 108 g 3 06/19/2023 Active metFORMIN HCl 850 MG Oral Tablet (Glucophage)Indic ations:Type 2 diabetes mellitus with hemoglobin A1c goal of less than 8.0% (HCC) TAKE 1 TABLET BY MOUTH TWICE DAILY WITH MORNING MEAL AND EVENING MEAL 180 Tablet 3 08/02/2023 Active Glimepiride 2 MG Oral Tablet (Amaryl) TAKE 1 TABLET BY MOUTH ONCE DAILY BEFORE BREAKFAST 90 Tablet 1 08/06/2023 Active Potassium Chloride ER 10 MEQ Oral Tablet Extended ReleaseIndication s:takes at night TAKE 1 TABLET BY MOUTH [...] Active traMADol HCl 50 MG Oral Tablet (Ultram)Indicatio ns:Pectoralis major tendinitis, left Take 1 Tablet by mouth 2 times a day as needed for Pain, Severe. 60 Tablet 01/16/2024 Active traMADol HCl 50 MG Oral Tablet (Ultram)Indicatio ns:Pectoralis major tendinitis, left Take 1 Tablet by mouth 2 times a day as needed for Pain, Severe. 60 Tablet 12/05/2023 4 Discontinue d(Refill) documented as of this encounter (statuses as of 01/16/2024) Active Problems Problem Noted Date Diagnosed Date Type 2 diabetes mellitus wit h hemoglobin A1c goal of less than 8.0% 02/28/2022 S/P ablation operation for arrhythmia 05/30/2019 SVT (supraventricular tachycardia) 05/12/2019 Overview: Historical S/P Ablation for arrhythmia Added automatically from request for surgery [id number] History of right coronary artery stent placement 06/29/2015 Generalized osteoarthritis 06/29/2014 CAD (coronary artery disease) 05/21/2014 Dyslipidemia, goal LDL below 70 05/09/2013 Major depressive disorder, recurrent episode, mo derate 02/25/2008 History of tobacco use 01/03/2006 documented as of this encounter (statuses as of 01/16/2024) Resolved Problems Problem Noted Date Diagnosed Date [...] as of this encounter (statuses as of 01/16/2024) Immunizations Name Administration Dates Next Due Hepatitis [...] Telephone Encounter - Shaye Bright MD - 01/16/2024 11:27 AM EDTSigned Prescriptions: Disp Refills traMADol HCl 50 MG Oral Tablet (Ultram) 60 Tab*0 Sig: Take 1 Tablet by mouth 2 times a day as needed for Pain, Severe.Authorizing Provider: SHAYE BRIGHT------ * Telephone Encounter - Barry Matamoros [facility] - 01/16/2024 9:36 AM EDT Pending Prescriptions: Disp Refills traMADol HCl 50 MG Oral Tablet (Ultram) 60 Tab*0 Sig: Take 1 Tablet by mouth 2 times a day as needed for Pain, Severe. * Telephone Encounter - Barry Matamoros [facility] - 01/16/2024 9:35 AM EDT I have reviewed the patients controlled substance dispensing history in the Prescription Drug Monitoring Program in compliance with the [facility] regulations before prescribing a controlled substance. PDMP checked on 01/16/2024. Pending Prescriptions: Disp Refills traMADol HCl 50 MG Oral Tablet (Ultram) 60 Tab*0 Sig: Take 1 Tablet by mouth 2 times a day as needed for Pain, Severe. Last Visit: 06/19/2023 (in office), 03/24/2020 (telemedicine) Next Visit: Visit date not found Date medication was last filled: 12/05/23 Date medication is due for refill: 01/02/24 Pharmacy: [facility] [address] [place] [address] K[place] FRANC[place] Is this request for a controlled substance? Yes and Urine Drug Screen Not completed Please approve if appropriate. Thanks, Barry Matamoros, PharmD Clinical Pharmacist [facility] ([facility]) [phone] 01/16/2024, 9:35 AM * Telephone Encounter - Jerilyn Chavis CPhT - 01/14/2024 11:55 AM EDT Did you pend patient's preferred pharmacy and medication before forwarding?yes [facility] [address] [place] [address] Soraya FRANCIS Pending Prescriptions: Disp Refills traMADol [...] appointment Last date the medication was ordered: 12/05/23 Is this request for a controlled substance?Yes, What was the last refill date 12/05/23 w/ quantity 60 and dosage 50mg and Urine Drug Screen Not completed Urine [...] 07/18/2016, Additional history exists COVID-19 Vaccine ( - season) 2023 Influenza Vaccine (FLU shot) (#1) [...] and were consensually agreed upon. Care Teams Sweet Potato Disintegrator Relationship Specialty Start Date End Date Shaye Bright MD [address] [place] [address] PCP - General 01/26/00 documented as of this encounter
--- OUTSIDE RECORDS SUMMARY | 2024-06-25 04:16 | External Medical Summary | Summary of Care ---
Author Name Unknown Organization [facility] Address [address] [place] [address] Phone [phone] Care Team Providers Care Certified Marine Mechanic Name Role Phone Jose Quiñonez MD Primary Care Provider +1- [phone] Reason for Visit * Reason Comments Acute Patient is here toda y due to cough, fever, headaches, SOB, and body aches. Patient states she has been symptomatic since 4Patient states she has been taking OTC cold medications with little relief. Encounter Details Date Type Department Care Team (Late st Contact Info) Description 03/24/2024 4:00 PM EST Office Visit [facility] [address] [place] [address] Corky Craven MD [address], [place] [id number] Bronchitis, complicated* Allergies Active Allergy Reactions Criticality Noted Date Comments Latex 05/14/2015 Latex gloves Sulfa Antibiotics 06/20/2002 "throat swelled shut" documented as of this encounter (statuses as of 03/24/2024) Medications TYLENOL 325 MG PO TABS takes 650mg three times daily for body aches Active MULTIPLE VITAMINS PO TABSIndications :Foot pain 1 TABLET DAILY 3 Active Q-goTOHigh [employer] SYSTEM W/DEVICE KITIndications: DM type 2, goal [...] Active Specialty Vitamins Products (BIOTIN PLUS KERATIN) 74403-623 MCG-MG TABS Take 2 Tabs by mouth daily. Active Glucose Blood (Q-goTOUCH ULTRA BLUE) STRPIndications :Type 2 diabetes mellitus [...] specified, unspecified location,Nasal sinus congestion Administer 1 [place] into nostril in the morning and 1 [place] before bedtime. 30 mL 1 3 Active [...] for Pain, Severe. 60 Tablet 4 Active Omeprazole 20 MG Oral Capsule Delayed Release (PriLOSEC) Take 1 capsule by mouth in the morning 90 Capsule 1 4 Active Azithromycin 250 MG Oral Tablet (Zithromax)Susie cations:Bronchi tis, complicated Take 2 tabs by mouth on the first day, then 1 tab daily on days two through five 6 Tablet 4 12/21/2 024 Active predniSONE 20 MG Oral Tablet (Deltasone)Susie cations:Bronchi tis, complicated Take 2 Tablets by mouth in the morning for 5 days. 10 Tablet 4 Active Estradiol 0.1 MG/GM Vaginal Cream (Estrace) Apply pea sized amount (0.5 gm) vaginally every other night. 42.5 g 3 2 Discontin ued(Medic ation List Clean Up) Azithromycin 250 MG Oral Tablet (Zithromax Z-Yomi) Take two tablets by mouth on first day, then 1 tablet daily until gone 6 Tablet 4 Discontin ued(Medic ation List Clean Up) Nitrofurantoin Monohyd Macro 100 MG Oral Capsule (Macrobid) Take 1 Capsule by mouth in the morning and 1 Capsule before bedtime. Do all this for 5 days. 10 Capsule 4 Discontin ued(Medic ation List Clean Up) documented as of this encounter (statuses as of 03/24/2024) Active Problems Problem Noted Date Diagnosed Date [...] as of this encounter (statuses as of 03/24/2024) Resolved Problems Problem Noted Date Diagnosed Date Resolved Date Diabetes mellitus without complication 02/28/2022 02/28/2022 Prediabetes 08/15/2021 02/28/2022 Overview: Per Prediabetes protocol SVT (supraventricular tachycardia) 05/12/2019 03/24/2024 Overview (08/10/2021): Historical S/P Ablation for arrhythmia Added automatically from request for surgery [id number] SVT (supraventricular tachycardia) 02/11/2019 02/11/2019 Overview (08/10/2021): [...] as of this encounter (statuses as of 03/24/2024) Immunizations Name Administration Dates Next Due Hepatitis [...] Sign Reading Time Taken Comments Blood Pressure 122/78 03/24/2024 4:46 PM EST Pulse 74 03/24/2024 4:46 PM EST Temperature 36.4 C (97.5 F) 03/24/2024 4:46 PM ES T Respiratory Rate 16 03/24/2024 4:46 PM EST Oxygen Saturation 93% 03/24/2024 4:46 PM EST Inhaled Oxygen Concentration - - Weight 102.5 kg (226 lb) 03/24/2024 4:46 PM EST Height 170.2 cm (5' 7") 03/24/2024 4:46 PM EST Body Mass Index 35.4 03/24/2024 4:46 PM EST documented in this encounter Progress Notes * Corky Craven MD - 03/24/2024 5:01 PM EST Images from the original note were not included. Assessment and Plan 1. Bronchitis, complicated (Primary) Treat similar to COPD exacerbation given extensive smoking history, wheezes, and 93% O2 saturation.If not seeing improvement in next 3-5 days obtain chest xray. Continue otc medications. - Azithromycin 250 MG Oral Tablet (Zithromax); Take 2 tabs by mouth on the first day, then 1 tab daily on days two through five Dispense: 6 Tablet; Refill: 0 - predniSONE 20 MG Oral Tablet (Deltasone); Take 2 Tablets by mouth in the morning for 5 days. Dispense: 10 Tablet; Refill: 0 Wrap-Up Follow up as needed. History of Present Illness The patient is a 58 year old female with past medical history of type 2 diabetes, dyslipidemia, CAD, depression who presents for acute. Patient presents with one week of cough, shortness of breath, fevers. Fevers have resolved over thelast 48 hours. Has extensive smoking history quitting 13 years ago. PFTs in 2022 ruled out COPD. Using coricidin HBP. Physical Exam Vitals: 03/24/24 1646 Temp: 97.5 F (36.4 C) Pulse: 74 Resp: 16 SpO2: 93% BP: 122/78 BMI: 35.39 Physical Exam Physical Exam Vitals reviewed. Constitutional: General: She is not in acute distress. HENT: Right Ear: Tympanic membrane normal. There is no impacted cerumen. Left Ear: Tympanic membrane normal. There is no impacted cerumen. Cardiovascular: Rate and Rhythm: Normal rate and regular rhythm. Heart sounds: No murmur heard. Pulmonary: Comments: Coarse breath sounds with wheezes and rhonchi in all 4 quadrants. Decreased air movement. Musculoskeletal: Cervical back: Neck supple. Lymphadenopathy: Cervical: No cervical adenopathy. Neurological: General: No focal deficit present. Mental Status: She is alert. This note has been completed in part utilizing [employer] Speech Voice Recognition Software. Due to technical limitations of the software, grammatical errors, random word insertions, prounoun errors, and incomplete sentences may occur. Any formal questions or concerns about the content, text, or information contained within the body of this dictation should be directly addressed to the provider for clarification. documented in this encounter Nursing Notes * Mary Beth Aburto LPN - 03/24/2024 4:50 PM EST The patient has been properly identified by confirmation of name and date of . Chief Complaint Patient presents with Acute Patient is here today due to cough, fever, headaches, SOB, and body aches. Patient states she has been symptomatic since 03/18/2024 Patient states she has been taking OTC cold medications with little relief. documented in this encounter Plan of [...] as of this encounter Visit Diagnoses Diagnosis Bronchitis, complicated- Primary Bronchitis, not specified as acute or chronic documented in this encounter Advance Directives * Full Code (Latest Code Status on File) Date Activated Date Inactivated Comments 05/30/2019 4:54 PM 05/31/2019 1:14 PM This order r eflects the patients wishes and were consensually agreed upon. Care Teams Certified Marine Mechanic Relationship Specialty Start Date End Date Jose Quiñonez MD [address], [place] [id number] PCP - General 01/26/00 documented as of this encounter
--- OUTSIDE RECORDS SUMMARY | 2024-06-25 04:16 | External Medical Summary | Summary of Care ---
Author Name Unknown Organization [facility] Address [address] [place] [address] Phone [phone] Care Team Providers Care Head Operator Sulfide Name Role Phone Shaye Bright MD Primary Care Provider [phone]- [phone] Reason for Visit * Reason Onset Date Comments Medication Refill 04/03/2024 Encounter Details Date Type Department Care Team (Late st Contact Info) Description 04/03/2024 Refill [facility] [address] [place] [address] Shaye Bright MD [address] [place] [address] Pectoralis major tendinitis, left Allergies Active Allergy Reactions Criticality Noted Date Comments Latex 05/14/2015 Latex gloves Sulfa Antibiotics 06/20/2002 "throat swelled shut" documented as of this encounter (statuses as of 04/06/2024) Medications TYLENOL 325 MG PO TABS takes 650mg three times daily for body aches Active MULTIPLE VITAMINS PO TABSIndications :Foot pain 1 TABLET DAILY 3 Active HuddleTOUCH ULTRA SYSTEM W/DEVICE KITIndications: DM type 2, [...] Active Specialty Vitamins Products (BIOTIN PLUS KERATIN) 62700-466 MCG-MG TABS Take 2 Tabs by mouth daily. Active Glucose Blood (HuddleTOUCH ULTRA BLUE) STRPIndications :Type 2 diabetes mellitus [...] specified, unspecified location,Nasal sinus congestion Administer 1 [place] into nostril in the morning and 1 [place] before bedtime. 30 mL 1 3 [...] hemoglobin A1c goal of less than 8.0% ([facility]) TAKE 1 TABLET BY MOUTH TWICE DAILY [...] as of this encounter (statuses as of 04/06/2024) Active Problems Problem Noted Date Diagnosed Date [...] as of this encounter (statuses as of 04/06/2024) Resolved Problems Problem Noted Date Diagnosed Date Resolved Date Diabetes mellitus without complication 02/28/2022 02/28/2022 Prediabetes 08/15/2021 02/28/2022 Overview: Per Prediabetes protocol SVT (supraventricular tachycardia) 05/12/2019 03/24/2024 Overview (08/10/2021): Historical S/P Ablation for arrhythmia Added automatically from request for surgery [id number] SVT (supraventricular tachycardia) 02/11/2019 02/11/2019 Overview (08/10/2021): [...] as of this encounter (statuses as of 04/06/2024) Immunizations Name Administration Dates Next Due Hepatitis [...] Telephone Encounter - Shaye Bright MD - 04/06/2024 4:42 PM ESTSigned Prescriptions: Disp Refills traMADol HCl 50 MG Oral Tablet (Ultram) 60 Tab*0 Sig: Take 1 Tablet by mouth 2 times a day as needed for Pain, Severe.Authorizing Provider: SHAYE BRIGHT----- * Telephone Encounter - Gigi Abrams [facility] - 04/05/2024 9:34 AM ESTPending Prescriptions: Disp Refills traMADol HCl 50 MG Oral Tablet (Ultram) 60 Tab*0 Sig: Take 1 Tablet by mouth 2 times a day as needed for Pain, Severe. * Telephone Encounter - Gigi Abrams [facility] - 04/05/2024 9:33 AM EST I have reviewed the patients controlled substance dispensing history in the Prescription Drug Monitoring Program in compliance with the [facility] regulations before prescribing a controlled substance. PDMP checked on 04/05/2024. Pending Prescriptions: Disp Refills traMADol HCl 50 MG Oral Tablet (Ultram) 60 Tab*0 Sig: Take 1 Tablet by mouth 2 times a day as needed for Pain, Severe. Last Visit: 03/24/2024 (in office), Visit date not found (telemedicine) Next Visit: Visit date not found Date medication was last filled: 02/22/24 Date medication is due for refill: 03/22/24 Pharmacy: [facility] [address] [place] [address] KIM FRANCIS Is this request for a [...] Cutoff Concentration Please approve if appropriate. Thank You, Gigi Monsalve [facility] Clinical Pharmacist [facility] ([facility]) 04/05/2024, 9:33 AM * Telephone Encounter - Mario Alberto Aguirre PHARM Tech - 04/03/2024 3:13 PM EST Did you pend patient's preferred pharmacy and medication before forwarding?yes Pharmacy: [facility] [employer] [facility] [address] [place] [address] [address] KIM FRANCIS Pending Prescriptions: Disp Refills traMADol HCl 50 MG Oral Tablet (Ultram) 60 Tab*0 Sig: Take 1 Tablet by mouth 2 times a day as needed for Pain, Severe. Last Visit: 03/24/2024 (in office), Visit date not found (telemedicine) Next Visit: Visit date not found If no future appointments scheduled, and last appointment is greater than a year ago, please schedule patient for a follow-up appointment Last date the medication was ordered: 02/22/2024 Is this request for a controlled substance?Yes, What was the last refill date 02/22/2024 w/ quantity 60 and dosage 50 MG and Urine Drug Screen was completed Urine [...] Depression Monitoring 02/08/2021 02/09/2020 Mammogram 06/17/2022 06/17/2021, 0304/2021, 07/18/2016, Additional history exists COVID-19 Vaccine ( [...] and were consensually agreed upon. Care Teams Head Operator Sulfide Relationship Specialty Start Date End Date Shaye Bright MD PCP - General 01/26/00 documented as of this encounter
--- OUTSIDE RECORDS SUMMARY | 2024-06-25 04:16 | External Medical Summary | Summary of Care ---
Author Name Unknown Organization [facility] Address [address] [place] [address] Phone [phone] Care Team Providers Care Cut Tobacco Bulker Name Role Phone Jose Quiñonez MD Primary Care Provider [phone]- [phone] Reason for Visit * Reason Onset Date Comments Health Maintenance 02/12/2024 Encounter Details Date Type Department Care Team (Late st Contact Info) Description 02/12/2024 Telephone [facility] [address] [place] [address] Jose Quiñonez MD [address] [place] [address] Health Maintenance Allergies Active Allergy Reactions Criticality Noted Date Comments Latex 05/14/2015 Latex gloves Sulfa Antibiotics 06/20/2002 "throat swelled shut" documented as of this encounter (statuses as of 02/12/2024) Medications Medication Sig Dispensed Refills Start Date End Date Status TYLENOL 325 MG PO TABS takes 650mg three times daily for body aches Active MULTIPLE VITAMINS PO TABSIndications:Hair t pain 1 TABLET DAILY 04/26/2012 Active ONETOUCH ULTRA SYSTEM W/DEVICE KITIndications:DM type 2, goal A1c below 7 Use up to four times a day as directed 1 Kit 0 05/01/2013 Active CRANBERRY 300 MG PO TABS one tab daily 05/13/2014 Active CINNAMON PLUS CHROMIUM 200-1000 MCG-MG PO CAPS 2 caps daily 05/13/2014 Active ASPIRIN EC 81 MG PO TBECIndications:CAD (coronary artery disease) one by mlouth daily in the morning 90 Tab 1 05/13/2014 Active fluticasone (FLONASE) 50 MCG/ACT nasal sprayIndications:Ch ronic rhinitis Administer 2 Sprays into each nostril daily. 3 Bottle 5 12/31/2014 Active cetirizine (ZYRTEC ALLERGY) 10 MG TabletIndications:A cute recurrent sinusitis, unspecified location Take 1 Tab by mouth daily. 05/06/2016 Active Additional Information Patient taking differently:10 mg Oral Daily(AM),Indications: takes at night, Reported on 06/05/2022 ONETOUCH DELICA LANCETS 33G MISCIndications:Typ e 2 diabetes mellitus with hemoglobin A1c goal of less than 8.0% (HCC) Testing sugar up to four times per day 300 Each 5 05/30/2017 Active Cholecalciferol (VITAMIN D3) 5000 units Tablet Take 1 Tablet by mouth in the morning. Active Magnesium Oxide 250 MG TABS Take 500 mg by mouth daily. 30 Tab 01/16/2018 Active Specialty Vitamins Products (BIOTIN PLUS KERATIN) 24900-697 MCG-MG TABS Take 2 Tabs by mouth daily. Active Glucose Blood (BarnanaUCH ULTRA BLUE) STRPIndications:Typ e 2 diabetes mellitus with hemoglobin A1c goal [...] 04/26/2023 Meclizine HCl 25 MG Oral Tablet (Antivert)Indicatio ns:BPPV (benign paroxysmal positional vertigo), left Take 1 Tablet by mouth 3 times a day as needed for Dizziness. 30 Tablet 1 08/28/2022 Active Azelastine HCl 0.1 % Nasal Solution (Astelin)Indication s:Acute sinusitis, recurrence not specified, unspecified location,Nasal sinus congestion Administer 1 [place] into nostril in the morning and 1 [place] before bedtime. 30 mL 1 02/16/2023 Active [...] HFA 108 (90 Base) MCG/ACT Inhalation Aerosol SolutionIndications :Bronchitis, complicated,Acute maxillary sinusitis, recurrence not specified Inhale 2 Puffs by mouth in the morning and 2 Puffs at noon and 2 Puffs in the evening and 2 Puffs before bedtime. May substitute ventolin or proventil based on formulary. 108 g 3 06/19/2023 Active metFORMIN HCl 850 MG Oral Tablet (Glucophage)Indicat ions:Type 2 diabetes mellitus with hemoglobin A1c goal of less than 8.0% (HCC) TAKE 1 TABLET BY MOUTH TWICE DAILY WITH MORNING MEAL AND EVENING MEAL 180 Tablet 3 08/02/2023 Active Potassium Chloride ER 10 MEQ Oral Tablet Extended ReleaseIndications: takes at night TAKE 1 TABLET BY MOUTH [...] Active traMADol HCl 50 MG Oral Tablet (Ultram)Indications :Pectoralis major tendinitis, left Take 1 Tablet by mouth 2 times a day as needed for Pain, Severe. 60 Tablet 01/16/2024 Active Atorvastatin Calcium 80 MG Oral Tablet (Lipitor) TAKE 1 TABLET BY MOUTH IN THE MORNING 100 Tablet 01/28/2024 Active Glimepiride 2 MG Oral Tablet (Amaryl) TAKE 1 TABLET BY MOUTH ONCE DAILY BEFORE BREAKFAST 90 Tablet 1 01/29/2024 Active documented as of this encounter (statuses as of 02/12/2024) Active Problems Problem Noted Date Diagnosed Date Type 2 diabetes mellitus wit h hemoglobin A1c goal of less than 8.0% 02/28/2022 S/P ablation operation for arrhythmia 05/30/2019 SVT (supraventricular tachycardia) 05/12/2019 Overview: Historical S/P Ablation for arrhythmia Added automatically from request for surgery [id number] History of right coronary artery stent placement 06/29/2015 Generalized osteoarthritis 06/29/2014 CAD (coronary artery disease) 05/21/2014 Dyslipidemia, goal LDL below 70 05/09/2013 Major depressive disorder, recurrent episode, mo derate 02/25/2008 History of tobacco use 01/03/2006 documented as of this encounter (statuses as of 02/12/2024) Resolved Problems Problem Noted Date Diagnosed Date [...] as of this encounter (statuses as of 02/12/2024) Immunizations Name Administration Dates Next Due Hepatitis [...] encounter Miscellaneous Notes * Telephone Encounter - Charles GarzaMANUELITO siddiqui - 02/12/2024 9:45 AM EST Care Gaps Comprehensive Care Outreach Last Office/Telemedicine Visit: 06/19/2023 (in office), 03/24/2020 (telemedicine) Next Office Visit: Visit date not found Hemoglobin AIC Results: Lab Results Component Value Date/Time HEMOGLOBIN A1C - [facility] 6.7 (H) 06/19/2023 03:01 PM HEMOGLOBIN A1C - [facility] 6.3 (H) 08/28/2022 08:30 AM HEMOGLOBIN A1C - [facility] 6.1 (H) 02/28/2022 08:29 AM HEMOGLOBIN A1C - [facility] 6.3 (H) 12/01/2019 12:16 PM HEMOGLOBIN A1C - [facility] 6.5 (H) 01/10/2019 03:18 PM HEMOGLOBIN A1C - [facility] 9.7 (H) 01/11/2018 03:16 PM BP Readings from Last 1 Encounters: 06/19/23 122/74 Reviewed Health Maintenance below: Health Maintenance Topic Date Due DTap/Tdap Vaccines (1 - Tdap) Never done Pneumococcal Vaccine: Pediatrics (0 to 5 Years) and At-Risk Patients (6 to 64 Years) (2 of 2 - PCV)08/26/2010 Lung Cancer Screening Never done Zoster Vaccines (1 of 2) Never done Depression Monitoring 02/08/2021 Mammogram 06/17/2022 Influenza Vaccine (FLU shot) (1) 12/09/2023 COVID-19 Vaccine ( - season) Never done HbA1c 12/20/2023 Diabetic Eye Exam 06/18/2024 Albumin/Creatinine Ratio 06/18/2024 Diabetic Foot Exam 06/18/2024 GFR 06/18/2024 B-12 06/18/2024 [facility] june mamm Care Gap Outreach Action Taken: Unable to reach and BreathalEyest message sent vm full documented in this encounter Plan of Treatment [...] and were consensually agreed upon. Care Teams Cut Tobacco Bulker Relationship Specialty Start Date End Date Jose Quiñonez MD [address] [place] [address] PCP - General 01/26/00 documented as of this encounter
[2024-06-25] MEDS: FLUTICASONE PROPIONATE NA SPR 16 GM BTL SCH (08:29)
[2024-06-25] MEDS: ASPIRIN 81 MG ECTAB PO SCH (08:29)
[2024-06-25] MEDS: CHOLECALCIFEROL 125 MCG (5,000 UNITS) TAB PO SCH (08:29)
[2024-06-25] MEDS: CETIRIZINE HCL 10 MG TABLET PO SCH (08:29)
[2024-06-25] MEDS: ATORVASTATIN 40 MG TAB PO SCH (08:29)
[2024-06-25] MEDS: lisinopril 2.5 MG TAB PO SCH (08:29)
[2024-06-25] MEDS: PANTOprazole 40 MG TAB PO SCH (08:29)
[2024-06-25] MEDS: POTASSIUM CHLORIDE 10 MEQ TABCR PO SCH (08:35)
--- NOTE | 2024-06-25 09:09 | Cardiology Consultation ---
Date of Consultation June 25, 2024 Assessment & Plan (1) Atypical chest pain: (2) Coronary artery disease: (3) SVT (supraventricular tachycardia): Plan 58-year-old female presents with atypical chest discomfort. No evidence of acute coronary syndrome. Recommend exercise stress echo for further risk stratification. Patient agreeable. Continue current cardiovascular medications including lisinopril, atorvastatin, and low-dose aspirin. Addendum: Exercise stress echo negative for inducible ischemia at adequate workload. No anginal symptoms. Patient may be discharged from a cardiovascular perspective. No further inpatient cardiac testing or intervention warranted at this time. Thank you for allow me to participate in the care of your patient. Cardiology will sign off. Thomas Jackson DO [facility] History of Present Illness Reason for Consultation: CP, RCA PCI 2014 Requesting Physician: Eufemia Mcclain PA-C Attending Physician: Jermaine Vegas MD History of Present Illness 58-year-old female known to the undersigned with history of myocardial infarction April 2014 status post RCA drug-eluting stent, hypertension, dyslipidemia, diabetes, and atrial tachycardia status post ablation presents to the ER due to chest pain. Describes significant back pain while at work which is not unusual. This discomfort however, lasted longer, radiated to her epigastric region with associated paresthesias of her bilateral upper extremities. Discomfort present upon arrival to the ER, however, gradually dissipated without treatment. Walking regularly for exercise. Denies any exertional chest pain or unusual shortness of breath. Compliant with cardiovascular medications listed below. Pain-free overnight. No dysrhythmia on telemetry. Initial evaluation including ECG, high-sensitivity troponin, and echocardiogram unremarkable. Allergies Allergy/AdvReac Type Severity Reaction Status Date / Time Sulfa (Sulfonamide Allergy Severe ANAPHYLAXIS Verified 06/24/24 18:04 Antibiotics) adhesive Allergy Intermediate RASH Verified 06/24/24 18:04 Home Medications Medication Instructions Recorded Confirmed Type acetaminophen 325 mg tablet 650 mg PO TID PRN Pain 07/09/18 06/24/24 History (Tylenol) albuterol sulfate 90 mcg/actuation 2 puff inhalation QID PRN Wheezing 07/09/18 06/24/24 History aerosol inhaler (Ventolin HFA) aspirin 81 mg tablet,delayed 81 mg PO DAILY 07/09/18 06/24/24 History release (Ecotrin Low Strength) cetirizine 10 mg tablet (Zyrtec) 10 mg PO DAILY 07/09/18 06/24/24 History empagliflozin 25 mg tablet 25 mg PO DAILY 07/09/18 06/24/24 History (Jardiance) fluticasone propionate 50 2 spray intranasal DAILY 07/09/18 06/24/24 History mcg/actuation nasal spray,suspension (Flonase Allergy Relief) glimepiride 2 mg tablet 2 mg PO DAILYBB 07/09/18 06/24/24 History lisinopril 2.5 mg tablet 2.5 mg PO DAILY 07/09/18 06/24/24 History metformin 850 mg tablet 850 mg PO BIDM 07/09/18 06/24/24 History multivitamin 1 tab PO DAILY 07/09/18 06/24/24 History nitroglycerin 0.4 mg sublingual 0.4 mg sublingual Q5M PRN Chest 07/09/18 History tablet (Nitrostat) Pain omeprazole 20 mg capsule,delayed 20 mg PO DAILY 07/09/18 06/24/24 History release tramadol 50 mg tablet 50 mg PO BID PRN Pain 07/09/18 06/24/24 History Cinnamon Plus Chromium 2 cap PO DIRECTED 05/01/19 06/24/24 History Cranberry Tablet 300 mg PO DAILY 05/01/19 06/24/24 History biotin 10,000 mcg-keratin 100 mg 2 tab PO DAILY 05/01/19 06/24/24 History tablet (Biotin Plus Keratin) cholecalciferol (vitamin D3) 50 5,000 unit PO DAILY 05/01/19 06/24/24 History mcg (2,000 unit) tablet (Vitamin D3) magnesium oxide 500 mg PO DAILY 05/01/19 06/24/24 History potassium chloride 10 mEq 10 meq PO DAILY #30 tabs 05/01/19 06/24/24 Rx tablet,extended release atorvastatin 80 mg tablet 80 mg PO DAILY 06/24/24 06/24/24 History meclizine 25 mg tablet 25 mg PO TID PRN Dizziness 06/24/24 06/24/24 History Patient History Family History Mother Systemic lupus erythematosus Cervical cancer Stroke Tuberculosis Rheumatoid arthritis Father Hypertension Heart disease Diabetes Leukemia Grandmother (Maternal) Tuberculosis Social History Smoking Status: Former smoker Tobacco Type: Cigarettes Second Hand Exposure: No; Hx Alcohol Use: Yes Alcohol type: other Hx Substance Use: Yes Substance Use Type Other:: gumnori Preferred Language: Luxembourgish Communication Ability: Effective Unload Associate Required: No Beliefs That Will Affect Care: None Current Living Situation: Family Current Living Situation Comment: lives with her son and nephew Other Information That Helps Us Care for You: No Feels Safe at Home: Yes Assistive Devices: None Review of Systems Review of Systems: All systems reviewed & are unremarkable except as noted in Subjective Physical Exam Constitutional: well developed and well nourished; no acute distress Respiratory: no respiratory distress, no labored breathing and no retractions Auscultation: no crackles, no rales, no rhonchi and no wheezes Cardiovascular: Rate/Rhythm: regular rate and regular rhythm Heart Sounds: normal S1 and normal S2; no murmur Vessels: no JVD and no carotid bruit Extremities: no edema Gastrointestinal (Abdomen): Inspection/Auscultation: abdomen normal to inspection and normal bowel sounds; abdomen not distended Percussion/Palpation: abdomen soft; abdomen nontender, no guarding and abdomen not rigid Neurologic: CN's II-XI intact bilaterally and moves all extremities; no focal motor deficits Results & Data Vital Signs (Past 12 Hours) Vital Signs Temp Pulse Pulse Resp BP BP Pulse Ox 06/25/24 07:56 36.5 C 77 18 133/60 95 06/25/24 07:52 64 06/25/24 02:57 36.4 C L 60 18 100/59 L 94 06/24/24 23:19 36.4 C L 73 16 110/67 94 06/24/24 22:51 71 06/24/24 21:19 36.3 C L 72 20 122/82 95 06/24/24 21:17 77 O2 Del Method 06/25/24 07:56 Room Air 06/25/24 07:52 06/25/24 02:57 Room Air 06/24/24 23:19 Room Air 06/24/24 22:51 06/24/24 21:19 Room Air 06/24/24 21:17 Laboratory Results Cardiac Enzymes 06/24/24 06/24/24 06/25/24 Range/Units 17:17 19:47 01:49 Troponin I High Sens 4.9 < 2.3 < 2.3 (0-14) pg/ml 06/25/24 Range/Units 07:16 Troponin I High Sens 4.0 (0-14) pg/ml Coagulation 06/24/24 Range/Units 17:17 PT 10.2 (9.0-12.0) Seconds APTT 25 (21-31) Seconds CBC 06/24/24 06/25/24 Range/Units 17:17 01:48 WBC 10.10 7.26 (4.8-10.8) K/ul RBC 5.02 4.67 (4.20-5.40) M/uL Hgb 14.6 13.6 (12.0-16.0) g/dl Hct 43.8 41.1 (37.0-47.0) % Plt Count 238 209 (130-400) K/uL Neut # (Auto) 4.47 2.37 (1.40-6.50) K/uL Lymph # (Auto) 4.58 H 3.88 H (1.20-3.40) K/uL [place] # (Auto) 0.62 H 0.60 H (0.11-0.59) K/uL Eos # (Auto) 0.32 0.33 (0.00-0.50) K/uL Baso # (Auto) 0.08 0.06 (0.00-0.20) K/uL Comprehensive Metabolic Panel 06/24/24 06/25/24 Range/Units 17:17 01:49 Sodium 137 141 (136-145) mmol/L Potassium 4.0 4.1 (3.5-5.1) mmol/L Chloride 101 106 (98-107) mmol/L Carbon Dioxide 29 30 (21-32) mmol/L BUN 14 15 (6-23) mg/dl Creatinine 0.62 0.68 (0.6-1.2) mg/dl Glucose 109 H 90 (70-99(Fasting)) mg/dl Calcium 9.7 9.6 (8.6-10.3) mg/dl Intake and Output 06/24/24 06/25/24 06/25/24 22:59 06:59 14:59 Intake Total 120 / 120 Balance 120 / 120 Intake: Oral 120 / 120 Other: Other Intake Source NPO # Unmeasured Voids 1 1 Weight 106.594 kg 103.7 kg Weight Measurement Method Built in Bedscale Built in [facility] (2) Coronary artery disease Associated angina: with stable angina Coronary Disease-Associated Artery/Lesion type: [place] artery [place] vs. transplanted heart: [place] heart Qualified Code(s): I25.118 - Atherosclerotic heart disease of [place] coronary artery with other forms of angina pectoris
--- NOTE | 2024-06-25 09:51 | Hospitalist Progress Note ---
Date of Service June 25, 2024 Assessment & Plan (1) Atypical chest pain: (2) Coronary artery disease: (3) Diabetes mellitus type 2 with complications: Plan This is a 58-year-old female who has a significant past medical history of CAD with history of [place] in April 2014 status post TAHMINA to RCA, HTN, HLD, T2DM, history of atrial tachycardia status post ablation, depression, Asthma, hx of tobacco abuse who presents to ED secondary to chest pain. #Atypical Chest Pain #CAD hx of RCA stent in 2014 #Hx of PAT s/p ablation admit to PCU for obs serial trops, echo in a.m. consult cardiology for stress test in a.m. NPO after midnight Recent had A1C and Lipid panel on 06/18: a1c of 6.7, trig 219, total chol 117, ldl 58 and hdl 32. sx are not reproducible, does not appear to be MSK or GI related concern for possible cardiac pathology #HLD: chronic, stable, continue statin #HTN: chronic, stable continue lisinopril #T2DM - controlled: A1C 6.7, hold metformin, jardiance, glimepride, place on novolog ISS while inpt DVT ppx: none, if remains hospitalized > 24 hrs add SQ Lovenox FULL CODE PCP: perla Dispo: admit to PCU under obs Pt was seen and examined in collaboration with Dr. Sorensen, please see addendum I spent a total of 60 minutes coordinating, documenting and providing care for this patient excluding time spent in the performance of separately billed services or time spent by another provider/QHP. Admission and Anticipated Discharge Date Admission Date: June 24, 2024 Results & Data Results & Data Vital Signs (Past 12 Hours) Vital Signs Temp Pulse Pulse Resp BP BP Pulse Ox 06/25/24 07:56 36.5 C 77 18 133/60 95 06/25/24 07:52 64 06/25/24 02:57 36.4 C L 60 18 100/59 L 94 06/24/24 23:19 36.4 C L 73 16 110/67 94 06/24/24 22:51 71 O2 Del Method 06/25/24 07:56 Room Air 06/25/24 07:52 06/25/24 02:57 Room Air 06/24/24 23:19 Room Air 06/24/24 22:51 (2) Coronary artery disease Coronary Disease-Associated Artery/Lesion type: [place] artery [place] vs. transplanted heart: [place] heart Associated angina: with stable angina Qualified Code(s): I25.118 - Atherosclerotic heart disease of [place] coronary artery with other forms of angina pectoris
--- NOTE | 2024-06-25 11:31 | Electrocardiogram Report ---
Test Reason : Blood Pressure : */* mmHG Vent. Rate : 76 BPM Atrial Rate : 76 BPM P-R Int : 188 ms QRS Dur : 84 ms QT Int : 396 ms P-R-T Axes : 19 -4 37 degrees QTcB Int : 445 ms Normal sinus rhythm Low voltage QRS Abnormal ECG When compared with ECG of 01-May-2019 10:38, No significant change was found Confirmed by Lucius Kelly ([id number]) on 06/25/2024 11:31:24 AM Referred By: REFERRED SELF Confirmed By: Lucius Kelly
[2024-06-25 11:59] VITALS: PULSE 70; RESP 20; TEMP 97.9; O2SAT 96
--- NOTE | 2024-06-25 13:28 | Discharge Summary ---
Date of Service June 25, 2024 Admission HPI Per Admitting Provider This is a 58-year-old female who has a significant past medical history of CAD with history of CA in April 2014 status post TAHMINA to RCA, HTN, HLD, T2DM, history of atrial tachycardia status post ablation, depression, Asthma, hx of tobacco abuse who presents to ED secondary to chest pain. Patient follows with [facility] cardiology but has not been seen in clinic since 2021.patient reports chest pain started approximately 1:30 PM. She was at work and states she was not exerting herself. Her pain was substernal, radiated to her back, right side of neck and down right arm. She reports her neck feeling, "heavy." She also reports numbness and tingling down both of her arms. She also had associated lightheadedness, nausea and feeling, "clammy." She reports the pain initially being an 8 out of 10. It was a crescendo decrescendo type of pain. It was constant but would come and go. When she arrived the ED pain had subsided significantly. She did not try any nitro. She reports symptoms feeling very similar to when she suffered a heart attack and had atrial arrhythmias in 2014. When symptoms started they checked her blood pressure at work and it was approximately 160s over 90s. She has been compliant with her medications. She states she has been active at home and she is currently in the process of moving. She denies lifting anything heavy or her symptoms being reproducible. She does report increasing shortness of breath with exertion specifically when going up and down her steps. She reports when packing she actually had to take a break at rest which is abnormal for her. Currently she feels her pain is minimal to absent. She received full dose aspirin in ED. She denies recent fever, chills, sweats, lightheadedness, shortness breath at rest, hemoptysis, vomiting, abdominal pain, change in her bowel or urinary habits. She feels that her sinus congestion is starting to come back. She denies any known sick contacts. She reports having a URI approximately 2 to 3 weeks ago. She denies her symptoms being worse with deep breathing or movement. In ED patient remained hemodynamically stable. Her initial troponin was unremarkable. Her EKG was nonischemic. She reports having chronic back pain symptoms and GERD and feels this does not feel similar. Pt outpt chart was reviewed. She recently had lab work that showed a1c of 6.7, trig 219, total chol 117, ldl 58 and hdl 32. She was seen in clinic on 06/10 05/11 acute sinusitis and prescribed doxycycline. She denies current smoking or alcohol use. Admission Exam Per Admitting Provider Constitutional: WD/WN, vitals as above, NAD, sitting up in bed, pleasant, conversing easily Head: Normocephalic, Atraumatic Eyes: PERRL, conjunctivae normal, anicteric sclerae ENMT: external ear and nose normal, oropharynx normal Neck: trachea midline, no thyromegaly normal visual inspection Respiratory: normal respiratory effort, lungs clear to auscultation, no wheeze, rales, rhonchi. Normal insp/exp effort, no accessory muscle use Cardiovascular: RRR, no murmur, no edema Vessels: no JVD or carotid bruit Chest: normal inspection of chest Abdomen: normal bowel sounds, soft, nontender, no hepatosplenomegaly Musculoskeletal: no cyanosis or clubbing, extremities motor strength 5/5 Skin: no rashes, warm and dry normal turgor Neurologic: PERRL, EOMI, accommodation nl, no face palsy, no dysarthria CN's II-XI intact bilaterally and moves all extremities Psychiatric: A+Ox3, euthymic affect Lymphatic: no cervical or axillary lymphadenopathy : deferred Principal Diagnosis Chest pain, acs ruled out Discharge Exam Constitutional: WD/WN, vitals as above, NAD, sitting up in bed, pleasant, conversing easily Respiratory: normal respiratory effort, lungs clear to auscultation, no wheeze, rales, rhonchi. Normal insp/exp effort, no accessory muscle use Cardiovascular: RRR, no murmur, no edema Vessels: no JVD or carotid bruit Chest: normal inspection of chest Abdomen: normal bowel sounds, soft, nontender, no hepatosplenomegaly Musculoskeletal: no cyanosis or clubbing, extremities motor strength 5/5 Skin: no rashes, warm and dry normal turgor Neurologic: PERRL, EOMI, accommodation nl, no face palsy, no dysarthria CN's II- XI intact bilaterally and moves all extremities Psychiatric: A+Ox3, euthymic affect Discharge Data Allergies Allergy/AdvReac Type Severity Reaction Status Date / Time Sulfa (Sulfonamide Allergy Severe ANAPHYLAXIS Verified 06/24/24 18:04 Antibiotics) adhesive Allergy Intermediate RASH Verified 06/24/24 18:04 Consultations 06/24/24 18:14 ED Decision to Admit Stat 06/24/24 22:00 Consult Cardiology Routine Hospital Course (1) Atypical chest pain: (2) Coronary artery disease: (3) Diabetes mellitus type 2 with complications: Plan This is a 58-year-old female who has a significant past medical history of CAD with history of CA in April 2014 status post TAHMINA to RCA, HTN, HLD, T2DM, history of atrial tachycardia status post ablation, depression, Asthma, hx of tobacco abuse who presents to ED secondary to chest pain. Patient was admitted to telemetry floor for further evaluation of the chest pain. Cardiology was consulted for comanagement Patient underwent exercise stress echo which was negative for inducible ischemia at adequate workload. No changes were made to patient's medication regimen Patient was discharged home with instructions to follow-up with PCP Please note the above document was generated using voice recognition software. It may contain grammatical, syntax or spelling errors. Any formal questions or concerns about the content, text or information contained within the body of this dictation should be directly addressed to the provider for clarification Total Time Total Time Spent Total Time Spent (In Minutes): 45 Total Time Includes: Examination of the Patient, Discharge Planning, Medication Reconciliation, Communication With Other Providers and Other Discharge Plan Discharge Items Patient Disposition: Home - Self-Care Reason For Visit: CHEST PAIN Discharge Diagnosis: Chest pain, ACS ruled out Activity: Resume your previous activity Non-emergency contact: Primary Care Provider Call non-emergency contact if: you have any medication questions and your symptoms worsen Follow-up/Referrals: Jose Quiñonez MD [Primary Care Provider] - (Date & Time 07/03/2024 3:00 PM Provider: Jose Quiñonez MD [facility], [facility] ) Diet: Regular Addtl Attending Provider Instructions: You were admitted to the hospital and underwent stress test by cardiology during the hospitalization; the stress stress was within normal limits. No changes have been made to your medication regimen. Please continue to take your medication as prescribed before. Please follow up with PCP as scheduled. Pending Studies at Discharge: No Stand-Alone Forms: [employer], Smoking Cessation Medications and DC Order Prescriptions: Continued metformin 850 mg Tablet 850 mg PO BIDM tramadol 50 mg Tablet 50 mg PO BID PRN (Reason: Pain) glimepiride 2 mg Tablet 2 mg PO DAILYBB Rx Instructions: take prior breakfast Jardiance 25 mg Tablet 25 mg PO DAILY acetaminophen [Tylenol] 325 mg Tablet 650 mg PO TID PRN (Reason: Pain) aspirin [Ecotrin Low Strength] 81 mg Tablet,Delayed Release (Dr/Ec) 81 mg PO DAILY albuterol sulfate [Ventolin HFA] 90 mcg/actuation Hfa Aerosol Inhaler 2 puff INHALATION QID PRN (Reason: Wheezing) multivitamin Tablet 1 tab PO DAILY nitroglycerin [Nitrostat] 0.4 mg Tablet, Sublingual 0.4 mg sublingual Q5M PRN (Reason: Chest Pain) Rx Instructions: Max 3 doses. Syed 911 if no relief. omeprazole 20 mg Capsule,Delayed Release(Dr/Ec) 20 mg PO DAILY lisinopril 2.5 mg Tablet 2.5 mg PO DAILY cetirizine [Zyrtec] 10 mg Tablet 10 mg PO DAILY fluticasone propionate [Flonase Allergy Relief] 50 mcg/actuation [place],Suspension 2 spray INTRANASAL DAILY magnesium oxide 500 mg Tablet 500 mg PO DAILY Cinnamon Plus Chromium 2 cap PO DIRECTED Rx Instructions: cinnamon plus chromium 200-1000mg dose Cranberry Tablet 300 mg PO DAILY Biotin Plus Keratin 10,000-100 mcg-mg Tablet 2 tab PO DAILY cholecalciferol (vitamin D3) [Vitamin D3] 2,000 unit Tablet 5,000 unit PO DAILY potassium chloride 10 mEq tablet extended release 10 meq PO DAILY Qty: 30 0RF atorvastatin 80 mg tablet 80 mg PO DAILY meclizine 25 mg Tablet 25 mg PO TID PRN (Reason: Dizziness) Discharge Orders: Discharge Order (Routine); Ordered 06/25/24 Ordered By: Jermaine Vegas Admission Data Admit Date/Time: 06/24/24 18:31 Attending Provider: Jermaine Vegas Admit Provider: Nicholas Sorensen Primary Care Provider: Jose Quiñonez Other Providers: Thomas Jackson Bryan J. Other Interventions: Discharge Summary Assessment (RN) Last Done: 06/25/24 13:46
[2024-06-25 13:48] VITALS: BP 110/67
== END 2024-06-25 15:18 | disposition home or self-care (01) ==
LOC: ED 16:52 → 2S 16:52 → SUATTDRO 18:31 → 2S 21:00